=== PATIENT | male | born 1940 | race African-American/Black ===

== ENCOUNTER 2016-02-26 11:14 | Emergency (ER) | payer MEDICARE ==
[2016-02-26 11:42] VITALS: BP 129/80
[2016-02-26] MEDS ORDERED: ALBUTEROL SULFATE/IPRATROPIUM 3 ML NEBU IH ONE ×2 (12:03→12:12)
--- NOTE | 2016-02-26 12:09 | ERNOTE ---
Date of Service: 02/26/16 Time Seen by Provider: 02/26/16 11:51 Stated Complaint: COLD Presenting Symptoms:: cough, sore throat, runny nose, fever, other - sinus and chest congestion Source: patient Exam Limitations: no limitations Immunizations: IMMUNIZATION HX Immunizations Up to Date Yes History of Influenza Vaccine Yes Hx Pneumococcal Vaccination Yes Allergies/Adverse Reactions: Allergies lisinopril Allergy (Mild, Verified 02/26/16 11:46) Hives tamsulosin HCl [From Flomax] Adverse Reaction (Mild, Verified 02/26/16 11:46) Itching Home Medications: HOME MEDICATIONS Albuterol Sulfate 2.5 mg IH QID 12/24/11 [Last Taken 02/04/16] Blood-Glucose Meter [Freestyle Lite Meter] 1 each MC QID 12/24/11 [Last Taken Unknown] Nitroglycerin [Nitrostat 0.4 MG] 1 tab SL Q5MX3 PRN 12/24/11 [Last Taken Unknown ] amLODIPine BESYLATE [Norvasc (Amlodipine)] 5 mg PO DAILY 12/24/11 [Last Taken 08:30] metFORMIN HCL [Glucophage] 1,000 mg PO BIDWM 12/24/11 [Last Taken 02/05/16] Aspirin [Aspirin Enteric Coated] 325 mg PO DAILY 01/29/16 [Last Taken 02/05/16] Clopidogrel Bisulfate [Plavix] 75 mg PO DAILY 01/29/16 [Last Taken 01/29/16] Gabapentin [Neurontin] 400 mg PO TID 01/29/16 [Last Taken 02/05/16] Insulin Aspart [Novolog] 18 units SC AC 01/29/16 [Last Taken 02/05/16] Insulin Glargine,Hum.rec.anlog [Lantus] 48 units SC HS 01/29/16 [Last Taken ] Metoprolol Tartrate [Lopressor] 25 mg PO BID 01/29/16 [Last Taken 02/06/16 08:30 ] Albuterol Sulfate [Proair Hfa] 2 puff IH QID PRN 02/26/16 [Last Taken Unknown] Doxycycline Monohydrate 100 mg PO BID #20 tablet 02/26/16 [Last Taken Unknown] Nabumetone 750 mg PO BID 02/26/16 [Last Taken Unknown] predniSONE [Prednisone] 3 tab PO DAILY #9 tab 02/26/16 [Last Taken Unknown] - History of Present Ilness Narrative: Pt. comes in with c/o cough, SOB, wheezing, sore throat, ear pain, sinus congestion, rhinorrhea, and chills/fever. Pt. denies any prehospital treatment since symptom onset three weeks ago. Pt. states that symptoms worsen at night and he has been taking his rescue inhaler more recently. Review of Systems - Review of Systems Constitutional: Present: fever, chills, weakness, fatigue, malaise. Absent: recent illness EYE: Present: no symptoms reported ENT: Present: ear pain - R, nose congestion, nasal drainage, sore throat Respiratory: Present: shortness of breath, cough, orthopnea, wheezing Cardiology: Present: no symptoms reported. Absent: chest pain, palpitations, edema Gastrointestinal/Abdominal: Present: no symptoms reported. Absent: nausea, vomiting, diarrhea Musculoskeletal: Present: no symptoms reported. Absent: back pain, neck pain, joint pain Skin: Present: no symptoms reported. Absent: rash, change in color Neurological: Present: no symptoms reported. Absent: headache, dizziness/light- headedness, numbness, tingling Endocrine: Present: no symptoms reported All Other Systems: All systems neg except as marked - Patient's Past Medical History Patient History - Medical: No pertinent hx - Social History Smoking Status: Former smoker Physical Exam - Physical Exam General Appearance: Present: wd/wn, alert, no apparent distress Eye Exam: Normal inspection: bilateral, PERRL: bilateral, EOMI: bilateral Ears, Nose, Throat: Present: nasal congestion, sinus pain/drainage - maxillary, pharyngeal erythema. Absent: abnormal TM (R), abnormal TM (L) Neck: Present: normal inspection, nontender. Absent: lymphadenopathy (R), lymphadenopathy (L) Respiratory: Present: no respiratory distress, no accessory muscle use, chest nontender, decreased breath sounds - R Cardiovascular/Chest: Present: regular rate, rhythm, no murmur, normal peripheral pulses Gastrointestinal/Abdominal: Present: normal bowel sounds, nontender, nondistended, soft, no organomegaly Back Exam: Present: normal inspection, normal range of motion, no CVA tenderness , no vertebral tenderness Extremity Exam: Present: normal inspection, non-tender, no edema, normal range of motion Neurological Exam: Present: alert, oriented, normal mood/affect, no motor/ sensory deficits, elevator attendant II-XII nml as tested, normal cerebellar test Skin Exam: Present: warm/dry, pallor. Absent: skin rash ED Progress - Results and Orders Patient's Lab Results:: I have reviewed the patient's lab results. - Vital Signs Patient's Vital Signs:: I have reviewed the patient's vital signs. Vital Signs: Vital Signs 02/26/16 11:35 Temperature 35.8 C L Pulse Rate 93 Respiratory 18 Rate Blood Pressure 129/80 O2 Sat by Pulse 98 Oximetry - X-Ray X-Ray #1 X-Ray: chest Interpretation: Reviewed by me X-ray Comments: bronchial cuffing - Progress/Reassessment Chief Complaint: Upper Respiratory Symptoms Departure - Departure Clinical Impression: COPD exacerbation Disposition: Home self-care Condition: Good Instructions: Chronic Obstructive Pulmonary Disease, [id number] Additional Instructions: Please follow up with dr martinez in 2-3 days. Continue taking Albuterol inhaler every four hours until feeling better. Referrals: Steven Martinez MD [Primary Care Provider] - Prescriptions: Doxycycline Monohydrate 100 mg PO BID #20 tablet predniSONE [Prednisone] 3 tab PO DAILY #9 tab
[2016-02-26 12:15] LABS: Hematocrit 41.8 % (42.0-52.0); Hemoglobin 14.6 gm/dL (13.5-18.0); Mean Cell Volume 83.1 fl (78-100); Mean Corpuscular Hgb Conc 34.9 g/dl (32-36); Mean Platelet Volume 11.5 fl (6.0-9.5); Neutrophil # 7.9 K/mm3 (1.3-6.0); Neutrophil % 74.4 % (42-75.0); Platelet Count 227 K/mm3 (150-450); Red Blood Count 5.03 M/mm3 (4.7-6.0); Red Cell Distribution Width 12.7 % (11.5-14.0); White Blood Count 10.6 K/mm3 (4.0-10.5)
[2016-02-26 12:28] LABS: Albumin * 3.3 gm/dl (3.4-5.0); Anion Gap 14.2 mmol/L (6.8-13.8); BUN/Creatinine Ratio 11.6 (9.0-21.6); Bilirubin, Total 0.6 mg/dL (0.0-1.1); Ca. Corrected For Albumin 9.2 mg/dL (8.4-10.2); Carbon Dioxide 25.6 mmol/L (24-32.6); Potassium 3.8 mmol/L (3.4-4.6); Total Protein 7.3 gm/dL (6.2-8.2)
== END 2016-02-26 13:26 | disposition home or self-care (01) ==
LOC: ER 11:14
DX: J44.1 Chronic obstructive pulmonary disease with (acute) exacerbation (principal); Z87.891 Personal history of nicotine dependence

== ENCOUNTER 2016-07-29 09:08 | Emergency (ER) | payer MEDICARE ==
--- NOTE | 2016-07-29 09:20 | ERNOTE ---
Medical Problem HPI - General Time Seen by Provider: 07/29/16 09:15 Source: patient Exam Limitations: no limitations - Immun/Allergies/Home Medications Immunizations: IMMUNIZATION HX Immunizations Up to Date Yes History of Influenza Vaccine Yes Hx Pneumococcal Vaccination Yes Allergies/Adverse Reactions: Allergies lisinopril Allergy (Mild, Verified 07/29/16 09:21) Hives tamsulosin HCl [From Flomax] Adverse Reaction (Mild, Verified 07/29/16 09:21) Itching Home Medications: HOME MEDICATIONS Albuterol Sulfate 2.5 mg IH QID 12/24/11 [Last Taken 02/04/16] Blood-Glucose Meter [Freestyle Lite Meter] 1 each MC QID 12/24/11 [Last Taken Unknown] Nitroglycerin [Nitrostat 0.4 MG] 1 tab SL Q5MX3 PRN 12/24/11 [Last Taken Unknown ] amLODIPine BESYLATE [Norvasc (Amlodipine)] 5 mg PO DAILY 12/24/11 [Last Taken 08:30] metFORMIN HCL [Glucophage] 1,000 mg PO BIDWM 12/24/11 [Last Taken 02/05/16] Aspirin [Aspirin Enteric Coated] 325 mg PO DAILY 01/29/16 [Last Taken 02/05/16] Clopidogrel Bisulfate [Plavix] 75 mg PO DAILY 01/29/16 [Last Taken 01/29/16] Gabapentin [Neurontin] 400 mg PO TID 01/29/16 [Last Taken 02/05/16] Insulin Aspart [Novolog] 18 units SC AC 01/29/16 [Last Taken 02/05/16] Insulin Glargine,Hum.rec.anlog [Lantus] 48 units SC HS 01/29/16 [Last Taken ] Metoprolol Tartrate [Lopressor] 25 mg PO BID 01/29/16 [Last Taken 02/06/16 08:30 ] Albuterol Sulfate [Proair Hfa] 2 puff IH QID PRN 02/26/16 [Last Taken Unknown] - History of Present History Narrative: Patient went to see his PCP for a routine appointment. He took his insulin at home but did not eat any breakfast. At the office patient was diaphoretic and his glucose measured low. He was given a doughnut and two cartons of orange juice. On arrival in the ER glucose is 75, patient is feeling back to normal and denies any concerns or symptoms Timing: resolved prior to arrival Review of Systems - Review of Systems Constitutional: Present: See HPI, diaphoresis. Absent: recent illness, fever EYE: Absent: vision changes ENT: Absent: nasal drainage Cardiology: Absent: chest pain Gastrointestinal/Abdominal: Absent: nausea, vomiting, abdominal pain Genitourinary: Present: no symptoms reported Musculoskeletal: Present: no symptoms reported Neurological: Absent: headache, weakness, numbness - Patient's Past Medical History Patient History - Medical: No pertinent hx, Diabetes Type 2 Insulin Dependent, Depression, GERD, UTI'S Patient History - Cardiac/Respiratory: Asthma, COPD, Hypertension, Hyperlipidemia, Myocardial Infarction, Pneumonia Patient History - Cancer: No Hx of Cancer Patient History - Surgical Procedures: Cholecystectomy, Colonoscopy, Cardiac stent, Total Knee Replacement, T & A, Hernia Repair Patient History - Other: None - Social History Living Situations: home Abuse History: No History of abuse Alcohol Use: none Drug Use: none - Immunizations Immunizations Up to Date: Yes Hx Pneumococcal Vaccination: Yes History of Influenza Vaccine: Yes Physical Exam - Physical Exam General Appearance: Present: wd/wn, alert, no apparent distress Respiratory: Present: no respiratory distress, normal breath sounds, no accessory muscle use, chest nontender, lungs clear Cardiovascular/Chest: Present: regular rate, rhythm, no murmur Gastrointestinal/Abdominal: Present: nontender, nondistended, soft Neurological Exam: Present: alert, oriented, normal mood/affect Skin Exam: Present: normal color, warm/dry ED Progress - Results and Orders Patient's Lab Results:: I have reviewed the patient's lab results. - reviewed labs from yesterday - Vital Signs Patient's Vital Signs:: I have reviewed the patient's vital signs. Vital Signs: Vital Signs 07/29/16 09:12 Temperature 36.4 C L Pulse Rate 93 Respiratory 12 Rate Blood Pressure 138/111 O2 Sat by Pulse 98 Oximetry - Progress/Reassessment Progress Note-Subjective: 07/29/16 10:15 glucose stable, no symptoms, ready to be discharged Departure - Departure Clinical Impression: Hypoglycemia Disposition: Home self-care Condition: Good Instructions: Hypoglycemia, [id number] Referrals: Steven Martinez MD [Primary Care Provider] -
--- OUTSIDE RECORDS SUMMARY | 2016-07-29 09:22 | XMS REPORT | Continuity of Care Document ---
:1940 Author Organization [facility] ([facility]) Address [address] [place] [address] Phone [phone] Care Team Providers Name Role Phone Steven Martinez Primary Care Provider [phone] Source Comments This disclosure is being made pursuant to the Care Everywhere program, applicable federal and state laws, and may not contain all informaitonavailable regarding this patient.[facility] ([facility]) Active Allergies and Adverse Reactions Allergen Noted Date Severity Reactions Comments Lisinopril Urticaria (Hives),Pruritus Tamsulosin 06/26/2015 Unknown Pt reports itching Current Medications Prescription Sig. Disp. Refills Start Date End Date Status albuterol 90 inhale 1 puff by 06/24/2012 Active mcg/Actuation inhaler inhalation route every 4 - 6 hours as needed aspirin 325 mg tablet take 1 tablet (325MG) 07/27/2012 Active by oral route every day gabapentin 300 mg take 1 capsule (300MG) 06/24/2012 Active capsule by ORAL route 3 times every day losartan 50 mg tablet take 1 tablet (50MG) 07/27/2012 Active by oral route every day metFORMIN 1,000 mg take 1 tablet (1000MG) 06/24/2012 Active tablet by oral route 2 times every day with morning and evening meals metoPROLol tartrate 25 take 1 tablet (25MG) 07/27/2012 Active mg tablet by oral route 2 times every day nabumetone 750 mg take 1 tablet (750MG) 06/24/2012 Active tablet by oral route 2 times every day simvastatin 40 mg take 1 tablet (40MG) 06/24/2012 Active tablet by ORAL route every day in the evening amLODIPine 5 mg tablet 04/27/2015 Active clopidogrel 75 mg 04/27/2015 Active tablet insulin aspart Inject 10 Units Active (NovoLOG FLEXPEN) 100 subcutaneously 3 times unit/mL (3 mL) daily before meals. injection pen insulin glargine Inject 45 Units Active (LanTUS) 100 unit/mL subcutaneously at injection vial bedtime. nitroglycerin 0.[address] 0.4 mg under the Active SL tablet tongue every 5 minutes as needed. Maximum of 3 tablets in 15 minutes. Active Problems Problem Noted Date Brachial neuritis or radiculitis NOS 06/05/2008 Unspecified hereditary and idiopathic peripheral neuropathy 05/02/2004 Type 2 diabetes mellitus without complication 01/26/2003 Cervicalgia 11/28/2002 Lumbago 11/28/2002 Essential hypertension 07/14/2002 Special screening for malignant neoplasm of prostate 12/02/2001 Pure hypercholesterolemia 12/02/2001 Coronary artery disease Overview: Formatting of this note may be different from the original. 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 LV gm EF 60% with apical hypokinesis 2. Right dominant circulation. LMCA normal. LAD 95% mid vessel stenosis. LCX non dominant normal. RCA tortuous vessel with minor irregularity. 3. Successful deployment of 2.75 x 20mm PROMUS stent to mid LAD with 0% residual stenosis. ) - 06/30/2012 STRESS MPI: EF .54. No ischemia 06/07/2014 VASCULAR GOPAL Normal. 04/06/2015 Myocardial infarction, old Resolved Problems Problem Noted Date Resolved Date Other and unspecified hyperlipidemia 01/26/2003 06/26/2015 Coronary atherosclerosis of unspecified type of vessel, 01/26/2003 06/24/2015 yuhaaviatam or graft Other symptoms involving urinary system 11/17/2002 06/26/2015 Observation for suspected malignant neoplasm 12/02/2001 06/24/2015 Most Recent Encounters Date Type Specialty Providers Description 07/08/2016 Office Visit [facility] Barbie Cartagena MD Dx: Coronary artery disease involving yuhaaviatam coronary artery of yuhaaviatam heart without angina pectoris (Primary Dx) Immunizations Name Dates Previously Given Next Due Pneumococcal Polysaccharide, PPSV23 (Pneumovax 23) 12/02/2001 Social History Tobacco Use Types Packs/Day Years Used Date Former Smoker Alcohol Use Drinks/Week oz/Week Comments No Last Filed Vital Signs Vital Sign Reading Time Taken Blood Pressure 140/72 07/08/2016 10:30 AM CDT Pulse 86 07/08/2016 10:30 AM CDT Temperature 36 C (96.8 F) 12/18/2003 9:14 AM CDT Respiratory Rate 16 11/16/2003 10:59 AM CDT Height 1.829 m (6' 0.01") 07/08/2016 10:30 AM CDT Weight 64.592 kg (142 lb 6.4 oz) 07/08/2016 10:30 AM CDT Body Mass Index 19.31 07/08/2016 10:30 AM CDT Oxygen Saturation - - Plan of Care Health Maintenance Due Date Last Done Comments Hepatitis B Vaccine (1 of 3 - 1940 Primary Series) Tdap Vaccine 12/14/1950 Td Vaccine 12/14/1957 Colonoscopy 12/14/1989 Zoster Vaccine 1999 DIABETIC: Hemoglobin A1C 11/02/2004 05/02/2004, 11/16/2003, 01/26/2003 Pneumococcal Vaccine (1 of 2 12/14/2004 12/02/2001 - PCV13) DIABETIC: Cholesterol 05/02/2005 05/02/2004, Additional history exists 11/16/2003, 01/26/2003 Diabetic: Hdl 05/02/2005 05/02/2004, Additional history exists 11/16/2003, 01/26/2003 Diabetic: Ldl 05/02/2005 05/02/2004, Additional history exists 11/16/2003, 11/16/2003 DIABETIC: Microalbumin 05/02/2005 05/02/2004 DIABETIC: Triglycerides 05/02/2005 05/02/2004, Additional history exists 11/16/2003, 01/26/2003 DIABETIC: Foot Exam 08/06/2010 DIABETIC: Retinal Eye Exam 08/06/2010 Influenza Vaccine: Seasonal 09/23/2016 (Season Ended) Results from Last 3 Months Not on file
[2016-07-29 10:00] VITALS: BP 153/90
== END 2016-07-29 10:27 | disposition home or self-care (01) ==
LOC: ER 09:08
DX: E16.2 Hypoglycemia, unspecified (principal); E11.9 Type 2 diabetes mellitus without complications; Z79.4 Long term (current) use of insulin; I10 Essential (primary) hypertension; J45.909 Unspecified asthma, uncomplicated; J44.9 Chronic obstructive pulmonary disease, unspecified; Z87.440 Personal history of urinary (tract) infections; Z95.5 Presence of coronary angioplasty implant and graft

== ENCOUNTER 2016-10-13 07:25 | Day surgery (SDC) | payer MEDICARE ==
[~2016-10-13 07:25] MED LIST: ACETAMINOPHEN 325 MG TABLET PO PRN; ACETYLCHOLINE CHLORIDE 20 DROP KIT IO PRN; BUPIVACAINE HCL/PF 30 ML VIAL IJ PRN; CYCLOPENTOLATE HCL 20 DROP BTL RIGHTEYE PRN; DEXTROSE 5%-0.5 NORMAL SALINE 1,000 ML IV PRN; EPINEPHrine 1 MG/ML AMPUL IO PRN; HYALURONATE SODIUM 0.4 ML DISP.SYRIN IO PRN; HYALURONATE SODIUM 0.85 ML DISP.SYRIN IO PRN; LIDOCAINE HCL/PF 200 MG/5 ML AMPUL TP PRN; LIDOCAINE HCL/PF 5 ML VIAL IO PRN; NORMAL SALINE 3 ML BOX IV PRN; TETRACAINE HCL 150 DROP BTL OP PRN
[2016-10-13] MEDS: TROPICAMIDE 150 DROP BTL RIGHTEYE PRN ×3 (07:50→08:15)
[2016-10-13] MEDS: PHENYLEPHRINE HCL 50 DROP BTL RIGHTEYE PRN ×3 (07:50→08:15)
[2016-10-13] MEDS ORDERED: RINGER'S SOLUTION,LACTATED 1,000 ML IV ONE (08:13)
[2016-10-13 10:13] VITALS: BP 163/74
== END 2016-10-13 07:26 | disposition home or self-care (01) ==
LOC: AMB 07:25
PROVIDERS: ATTEND Ophthalmology
PROC: 08RJ3JZ Replacement of Right Lens with Synthetic Substitute, Percutaneous Approach (ICD-10-PCS; principal; 2016-10-13 08:45)
DX: H26.9 Unspecified cataract (principal); E11.9 Type 2 diabetes mellitus without complications; I10 Essential (primary) hypertension; J44.9 Chronic obstructive pulmonary disease, unspecified; I25.10 Atherosclerotic heart disease of native coronary artery without angina pectoris; K21.9 Gastro-esophageal reflux disease without esophagitis; E78.5 Hyperlipidemia, unspecified; Z87.891 Personal history of nicotine dependence; Z68.21 Body mass index [BMI] 21.0-21.9, adult

== ENCOUNTER 2016-10-29 15:10 | Emergency (ER) | payer MEDICARE ==
[2016-10-29] MEDS ORDERED: LABETALOL HCL 5 MG/ML VIAL IV ONE ×3 (15:24→16:24)
[2016-10-29] MEDS: NITROGLYCERIN 0.4 MG/TAB BTL SL ONE ×2 (15:25→15:30)
[2016-10-29] MEDS ORDERED: NITROGLYCERIN 0.4 MG/TAB BTL SL ONE (15:31)
[2016-10-29] MEDS ORDERED: NITROGLYCERIN IN 5 % DEXTROSE 50 MG/250 ML INFUS..BTL IV PRN (15:34)
[2016-10-29] MEDS ORDERED: ALBUTEROL SULFATE/IPRATROPIUM 3 ML NEBU IH ONE ×2 (15:37→15:38)
--- NOTE | 2016-10-29 15:38 | ERNOTE ---
Medical Problem HPI - General Chief Complaint: Nausea/Vomiting Time Seen by Provider: 10/29/16 15:20 Source: patient, family Exam Limitations: no limitations - Immun/Allergies/Home Medications Immunizations: IMMUNIZATION HX Immunizations Up to Date Yes History of Influenza Vaccine No Hx Pneumococcal Vaccination Yes Allergies/Adverse Reactions: Allergies lisinopril Allergy (Mild, Verified 10/29/16 15:18) Hives tamsulosin HCl [From Flomax] Allergy (Mild, Verified 10/29/16 15:18) Itching Home Medications: HOME MEDICATIONS Albuterol Sulfate 2.5 mg IH QID 12/24/11 [Last Taken 02/04/16] Blood-Glucose Meter [Freestyle Lite Meter] 1 each MC QID 12/24/11 [Last Taken Unknown] Nitroglycerin [Nitrostat 0.4 MG] 1 tab SL Q5MX3 PRN 12/24/11 [Last Taken Unknown ] metFORMIN HCL [Glucophage] 1,000 mg PO BIDWM 12/24/11 [Last Taken 02/05/16] Aspirin [Aspirin Enteric Coated] 325 mg PO DAILY 01/29/16 [Last Taken 02/05/16] Clopidogrel Bisulfate [Plavix] 75 mg PO DAILY 01/29/16 [Last Taken 01/29/16] Gabapentin [Neurontin] 400 mg PO TID 01/29/16 [Last Taken 02/05/16] Insulin Aspart [Novolog] 18 units SC AC 01/29/16 [Last Taken 02/05/16] Insulin Glargine,Hum.rec.anlog [Lantus] 48 units SC HS 01/29/16 [Last Taken ] Metoprolol Tartrate [Lopressor] 25 mg PO BID 01/29/16 [Last Taken 02/06/16 08:30 ] Albuterol Sulfate [Proair Hfa] 2 puff IH QID PRN 02/26/16 [Last Taken Unknown] Atorvastatin Calcium [Lipitor] 20 mg PO DAILY 10/06/16 [Last Taken Unknown] amLODIPine BESYLATE [Norvasc] 10 mg PO DAILY 10/06/16 [Last Taken Unknown] - History of Present History Narrative: Patient presents to the ED in profound respiratory distress, diaphoretic with nausea and inability to catch his breath. Onset of symptoms was earlier today approximate 4-5 hours prior to arrival. Both patient and feel that the symptoms are severe and he is not able to get any relief at home. Timing: constant Severity: severe Review of Systems - Review of Systems Constitutional: Present: See HPI EYE: Present: no symptoms reported ENT: Present: no symptoms reported Respiratory: Present: See HPI, shortness of breath Cardiology: Present: no symptoms reported Gastrointestinal/Abdominal: Present: no symptoms reported Genitourinary: Present: no symptoms reported Musculoskeletal: Present: no symptoms reported Skin: Present: no symptoms reported Neurological: Present: no symptoms reported Endocrine: Present: no symptoms reported Hematologic/Lymphatic: Present: no symptoms reported Psych: Present: no symptoms reported - Patient's Past Medical History Patient History - Medical: Diabetes Type 2 Insulin Dependent, Depression, GERD, UTI'S Patient History - Cardiac/Respiratory: Asthma, COPD, Hypertension, Hyperlipidemia, Myocardial Infarction, Pneumonia Patient History - Cancer: No Hx of Cancer Patient History - Surgical Procedures: Cholecystectomy, Colonoscopy, Cardiac stent, Total Knee Replacement, T & A, Other, Hernia Repair Patient History - Other: None - Family History Father Family History - Medical: , No pertinent hx Family History - Cardiac/Respiratory: No pertinent hx Family History - Cancer: Lung Mother Family History - Medical: , Diabetes Type 2 Family History - Cardiac/Respiratory: Hypertension Family History - Cancer: No pertinent family hx Brother Family History - Medical: , Diabetes Type 2, Other Family History - Cardiac/Respiratory: Myocardial Infarction Family History - Cancer: Brain, Stomach Sister Family History - Medical: No pertinent hx, Other Family History - Cardiac/Respiratory: Myocardial Infarction Family History - Cancer: Other - Social History Living Situations: home Abuse History: No History of abuse Psych History: No pertinent hx Alcohol Use: none Drug Use: none - Immunizations Immunizations Up to Date: Yes Hx Pneumococcal Vaccination: Yes History of Influenza Vaccine: No Physical Exam - Physical Exam General Appearance: Present: wd/wn, alert, severe distress Eye Exam: Normal inspection: bilateral, PERRL: bilateral Ears, Nose, Throat: Present: normal ENT inspection, H, normal pharynx Neck: Present: normal inspection, nontender Respiratory: Present: chest nontender, respiratory distress, accessory muscle use, decreased breath sounds Cardiovascular/Chest: Present: regular rate, rhythm, no murmur, normal peripheral pulses Gastrointestinal/Abdominal: Present: normal bowel sounds, nontender, nondistended, soft, no organomegaly Rectal Exam: Present: deferred Back Exam: Present: normal inspection, normal range of motion Extremity Exam: Present: normal inspection, non-tender, no edema, normal range of motion Neurological Exam: Present: alert, oriented, normal mood/affect Skin Exam: Present: normal color, warm/dry Lymphatic Exam: Present: no adenopathy ED Progress - Results and Orders Patient's Lab Results:: I have reviewed the patient's lab results. - Vital Signs Patient's Vital Signs:: I have reviewed the patient's vital signs. Vital Signs: Vital Signs 10/29/16 10/29/16 10/29/16 15:15 15:26 15:29 Pulse Rate 120 H 128 H 110 H Respiratory 16 28 H Rate Blood Pressure 220/144 260/148 260/148 O2 Sat by Pulse 93 90 Oximetry - EKG EKG: other - sinus tachycardia EKG read: Interp. by me - X-Ray X-Ray #1 X-Ray: chest Interpretation: Reviewed by me - Progress/Reassessment Chief Complaint: Nausea/Vomiting Procedures Tube Size (cm): 6.0 Medications: Succinylcholine Breath Sounds after Intubation: equal Intubation Complications: no complications Post Intubation Xray: Yes Complications: Pt michoacano procedure well Plan - Plan Plan: Patient was in acute respiratory failure with malignant hypertension. Numerous interventions were undertaken to help his blood pressure down including subarachnoid nitroglycerin 2, labetalol 20 mg 2 and a nitroglycerin drip. Despite getting the blood pressure down to a lower level patient was still in marked respiratory failure and he was trending worse. Because of this patient was intubated and placed on a propofol drip, nitroglycerin drip and labetalol drip. Because the patient had a slightly elevated lactate and elevated white count patient was given 1 g Rocephin prophylactically. However I believe that the patient's lactate was elevated because of profound extended hypoxia. We were able to make significant improvement signs blood pressure with a variety drips, we were able to control his oxygen level by placing the patient on a ventilator. I believe this patient is going to need a variety of implants that were not compelled to provide for him here in the guise of cardiology and pulmonology. Patient be transferred to [facility] in [place] and is transferred there in critical condition. Departure - Departure Clinical Impression: Malignant hypertension Respiratory failure Qualifiers: Chronicity: acute Respiratory failure complication: hypoxia Qualified Code(s): J96.01 - Acute respiratory failure with hypoxia Disposition: [facility] Condition: Critical Referrals: Steven Martinez MD [Primary Care Provider] - - Critical Care Total Time (mins): 100 Critical Care: As mentioned previously this patient required critical care for the entire time he was in the emergency department. Multiple interventions were undertaken included endotracheal intubation, multiple drips to control blood pressure and prophylactic antibiotics.
[2016-10-29 15:43] LABS: Hematocrit 43.3 % (42.0-52.0); Hemoglobin 15.3 gm/dL (13.5-18.0); Mean Cell Volume 83.9 fl (78-100); Mean Corpuscular Hemoglobin 29.7 pg (27-31); Mean Corpuscular Hgb Conc 35.3 g/dl (32-36); Mean Platelet Volume 11.8 fl (6.0-9.5); Neutrophil # 13.8 K/mm3 (1.3-6.0); Neutrophil % 85.5 % (42-75.0); Platelet Count 194 K/mm3 (150-450); Red Blood Count 5.16 M/mm3 (4.7-6.0); White Blood Count 16.2 K/mm3 (4.0-10.5)
[2016-10-29] MEDS ORDERED: PROPOFOL 1,000 MG/100 ML PIGGYBACK IV PRN (15:53)
[2016-10-29 16:03] LABS: Troponin I 0.023 ng/ml (0.00-0.10)
[2016-10-29 16:07] LABS: BUN/Creatinine Ratio 12.2 (9.0-21.6)
[2016-10-29 16:08] LABS: Albumin * 4.2 gm/dl (3.4-5.0); Anion Gap 18.3 mmol/L (6.8-13.8); Bilirubin, Total 1.5 mg/dL (0.0-1.1); CKMB 7.1 ng/mL (0.0-9.0); Ca. Corrected For Albumin 8.6 mg/dL (8.4-10.2); Calcium * 9.1 mg/dL (7.9-10.9); Carbon Dioxide 24.9 mmol/L (24-32.6); Potassium 4.2 mmol/L (3.4-4.6); Total Protein 8.3 gm/dL (6.2-8.2)
[2016-10-29] MEDS ORDERED: MIDAZOLAM HCL/PF 5 MG/ML VIAL IM ONE (16:46)
[2016-10-29] MEDS ORDERED: LABETALOL HCL 100 MG in NORMAL SALINE 80 ML IV PRN (16:46)
[2016-10-29 17:06] VITALS: BP 156/99
[2016-10-29] MEDS ORDERED: MIDAZOLAM HCL/PF 5 MG/ML VIAL ONE (17:08)
[2016-10-29] MEDS ORDERED: MIDAZOLAM HCL/PF 5 MG/ML VIAL IV ONE (17:13)
== END 2016-10-29 17:25 | disposition short-term general hospital (02) ==
LOC: ER 15:10
DX: I10 Essential (primary) hypertension (principal); J96.01 Acute respiratory failure with hypoxia

== ENCOUNTER 2016-11-18 08:35 | Emergency (ER) | payer MEDICARE ==
[2016-11-18] MEDS ORDERED: DEXTROSE 50%-WATER 50 ML SYRG ONE (08:41)
[2016-11-18] MEDS ORDERED: DEXTROSE 4 GM/TAB BTL ONE (08:41)
[2016-11-18] MEDS ORDERED: DEXTROSE 4 GM/TAB BTL PO ONE (08:46)
[2016-11-18] MEDS ORDERED: DEXTROSE 50%-WATER 50 ML SYRG IV ONE (08:47)
[2016-11-18 10:03] VITALS: BP 160/87
--- NOTE | 2016-11-18 10:29 | ERNOTE ---
Medical Problem HPI - Narrative Date of Service: 11/18/16 - General Chief Complaint: Diabetes Related Problem Time Seen by Provider: 11/18/16 08:55 Source: patient Exam Limitations: no limitations - Immun/Allergies/Home Medications Immunizations: IMMUNIZATION HX Immunizations Up to Date Yes History of Influenza Vaccine No Hx Pneumococcal Vaccination Yes Allergies/Adverse Reactions: Allergies lisinopril Allergy (Mild, Verified 11/18/16 10:10) Hives tamsulosin HCl [From Flomax] Allergy (Mild, Verified 11/18/16 10:10) Itching Home Medications: HOME MEDICATIONS Albuterol Sulfate 2.5 mg IH QID 12/24/11 [Last Taken 02/04/16] Blood-Glucose Meter [Freestyle Lite Meter] 1 each MC QID 12/24/11 [Last Taken Unknown] Nitroglycerin [Nitrostat 0.4 MG] 1 tab SL Q5MX3 PRN 12/24/11 [Last Taken Unknown ] metFORMIN HCL [Glucophage] 1,000 mg PO BIDWM 12/24/11 [Last Taken 11/18/16] Aspirin [Aspirin Enteric Coated] 325 mg PO DAILY 01/29/16 [Last Taken 11/18/16] Clopidogrel Bisulfate [Plavix] 75 mg PO DAILY 01/29/16 [Last Taken 11/18/16] Gabapentin [Neurontin] 400 mg PO TID 01/29/16 [Last Taken 02/05/16] Insulin Aspart [Novolog] 18 units SC AC 01/29/16 [Last Taken 11/18/16] Insulin Glargine,Hum.rec.anlog [Lantus] 48 units SC HS 01/29/16 [Last Taken ] Metoprolol Tartrate [Lopressor] 25 mg PO BID 01/29/16 [Last Taken 11/18/16] Albuterol Sulfate [Proair Hfa] 2 puff IH QID PRN 02/26/16 [Last Taken Unknown] Atorvastatin Calcium [Lipitor] 20 mg PO DAILY 10/06/16 [Last Taken 11/17/16] Amlodipine Besylate 5 mg PO DAILY 11/18/16 [Last Taken 11/18/16] - History of Present History Narrative: Patient presents to the ED for low blood sugar. He relates he took his medications but did not eat breakfast because he had an appointment with Dr Martinez. When he arrived at Dr Martinez office he did not feel well and had a low BS in the 40s. he was subsequently sent here. An amp of D50 given in triage and now feeling back to normal. There is a reasons for his low BS as he did not eat breakfast. No vomiting. No other Sx. he relates that otherwise he has been feeling well. No urinary symptoms. No CP or SOB. Timing: gone now Severity: mild Modifying Factors - (Improves): Present: other - glucose Modifying Factors - (Worsens): Present: other - nothing Review of Systems - Review of Systems Constitutional: Absent: fever ENT: Absent: sore throat Respiratory: Absent: shortness of breath Cardiology: Absent: chest pain Gastrointestinal/Abdominal: Absent: abdominal pain Genitourinary: Absent: dysuria Skin: Absent: rash Neurological: Absent: weakness - Patient's Past Medical History Patient History - Medical: Diabetes Type 2 Insulin Dependent, Depression, GERD, UTI'S Patient History - Cardiac/Respiratory: Asthma, COPD, Hypertension, Hyperlipidemia, Myocardial Infarction, Pneumonia Patient History - Cancer: No Hx of Cancer Patient History - Surgical Procedures: Cholecystectomy, Colonoscopy, Cardiac stent, Total Knee Replacement, T & A, Other, Hernia Repair Patient History - Other: None - Family History Father Family History - Medical: , No pertinent hx Family History - Cardiac/Respiratory: No pertinent hx Family History - Cancer: Lung Mother Family History - Medical: , Diabetes Type 2 Family History - Cardiac/Respiratory: Hypertension Family History - Cancer: No pertinent family hx Brother Family History - Medical: , Diabetes Type 2, Other Family History - Cardiac/Respiratory: Myocardial Infarction Family History - Cancer: Brain, Stomach Sister Family History - Medical: No pertinent hx, Other Family History - Cardiac/Respiratory: Myocardial Infarction Family History - Cancer: Other - Social History Living Situations: home Abuse History: No History of abuse Psych History: No pertinent hx Smoking Status: Former smoker Have you smoked in the past 12 months: No Do you dip or chew tobacco: No Alcohol Use: none Drug Use: none - Immunizations Immunizations Up to Date: Yes Hx Pneumococcal Vaccination: Yes History of Influenza Vaccine: No Physical Exam - Physical Exam General Appearance: Present: alert, no apparent distress Head Exam: Present: normal inspection, no evidence of injury Eye Exam: Normal inspection: bilateral, PERRL: bilateral Ears, Nose, Throat: Present: normal ENT inspection Neck: Present: normal inspection Respiratory: Present: no respiratory distress, no accessory muscle use, lungs clear Cardiovascular/Chest: Present: regular rate, rhythm, normal peripheral pulses Gastrointestinal/Abdominal: Present: normal bowel sounds, nontender, soft Back Exam: Absent: CVA tenderness (R), CVA tenderness (L) Extremity Exam: Present: other - no deformity Neurological Exam: Present: alert, normal mood/affect, no motor/sensory deficits Skin Exam: Present: normal color, warm/dry ED Progress - Results and Orders Patient's Lab Results:: I have reviewed the patient's lab results. - Vital Signs Patient's Vital Signs:: I have reviewed the patient's vital signs. Vital Signs: Vital Signs 11/18/16 11/18/16 11/18/16 08:50 08:51 09:07 Temperature 36.3 C L Pulse Rate 84 85 84 Respiratory 18 14 Rate Blood Pressure 143/79 169/79 O2 Sat by Pulse 100 99 Oximetry 11/18/16 11/18/16 09:30 10:02 Temperature Pulse Rate 88 87 Respiratory 14 14 Rate Blood Pressure 160/87 O2 Sat by Pulse 100 100 Oximetry - Progress/Reassessment Chief Complaint: Diabetes Related Problem Progress Note-Subjective: 11/18/16 10:26 Patient had IV dextrose and ate a meal. he was wishing to go home. BS improved. He has a reasons to be low this am as he did not eat breakfast. i discussed warning signs and reasons to return as well as the need for close f/u. Departure Clinical Impression: Low blood sugar - Departure Disposition: Home self-care Condition: Stable Instructions: Hypoglycemia, [id number] Additional Instructions: Rest. Close blood sugar monitoring. Return for low blood sugar or if your condition worsens or changes in any way. Referrals: Steven Martinez MD [Primary Care Provider] - 11/20/16 1:30 pm
== END 2016-11-18 10:45 | disposition home or self-care (01) ==
LOC: ER 08:35
DX: E16.2 Hypoglycemia, unspecified (principal); Z87.440 Personal history of urinary (tract) infections; Z87.891 Personal history of nicotine dependence; Z79.4 Long term (current) use of insulin; E11.9 Type 2 diabetes mellitus without complications; J44.9 Chronic obstructive pulmonary disease, unspecified; J45.909 Unspecified asthma, uncomplicated; I25.2 Old myocardial infarction; Z95.5 Presence of coronary angioplasty implant and graft; E78.5 Hyperlipidemia, unspecified; I10 Essential (primary) hypertension

== ENCOUNTER 2017-01-05 06:51 | Day surgery (SDC) | payer MEDICARE ==
[~2017-01-05 06:51] MED LIST changes: +CYCLOPENTOLATE HCL 20 DROP BTL LEFTEYE PRN; -CYCLOPENTOLATE HCL 20 DROP BTL RIGHTEYE PRN
[2017-01-05] MEDS: TROPICAMIDE 150 DROP BTL LEFTEYE PRN ×3 (07:09→07:31)
[2017-01-05] MEDS: PHENYLEPHRINE HCL 50 DROP BTL LEFTEYE PRN ×3 (07:09→07:31)
[2017-01-05] MEDS ORDERED: RINGER'S SOLUTION,LACTATED 1,000 ML IV ONE (07:29)
[2017-01-05 09:31] VITALS: BP 138/72
== END 2017-01-05 06:52 | disposition home or self-care (01) ==
LOC: AMB 06:51
PROVIDERS: ATTEND Ophthalmology
PROC: 08RK3JZ Replacement of Left Lens with Synthetic Substitute, Percutaneous Approach (ICD-10-PCS; principal; 2017-01-05 08:00)
DX: H26.8 Other specified cataract (principal); I10 Essential (primary) hypertension; E11.9 Type 2 diabetes mellitus without complications; J44.9 Chronic obstructive pulmonary disease, unspecified; I25.10 Atherosclerotic heart disease of native coronary artery without angina pectoris; E78.5 Hyperlipidemia, unspecified; K21.9 Gastro-esophageal reflux disease without esophagitis; Z87.891 Personal history of nicotine dependence; Z68.21 Body mass index [BMI] 21.0-21.9, adult

== ENCOUNTER 2017-03-12 10:39 | Emergency (ER) | payer MEDICARE ==
[2017-03-12] MEDS ORDERED: DEXTROSE 50%-WATER 50 ML SYRG ONE (10:50)
[2017-03-12] MEDS ORDERED: DEXTROSE 50%-WATER 50 ML SYRG IV ONE (10:52)
--- NOTE | 2017-03-12 10:57 | ERNOTE ---
Medical Problem HPI - General Chief Complaint: General Assessment Time Seen by Provider: 03/12/17 10:45 Source: patient, family Exam Limitations: no limitations - Immun/Allergies/Home Medications Immunizations: IMMUNIZATION HX Immunizations Up to Date Yes History of Influenza Vaccine No Hx Pneumococcal Vaccination Yes Allergies/Adverse Reactions: Allergies lisinopril Allergy (Mild, Verified 03/12/17 10:49) Hives, "FEELS SICK" tamsulosin HCl [From Flomax] Adverse Reaction (Mild, Verified 03/12/17 10:49) "FEELS SICK" Home Medications: HOME MEDICATIONS Albuterol Sulfate 2.5 mg IH QID 12/24/11 [Last Taken 02/04/16] Blood-Glucose Meter [Freestyle Lite Meter] 1 each MC ACHS 12/24/11 [Last Taken Unknown] Nitroglycerin [Nitrostat 0.4 MG] 1 tab SL Q5MX3 PRN 12/24/11 [Last Taken Unknown ] metFORMIN HCL [Glucophage] 1,000 mg PO BIDWM 12/24/11 [Last Taken 11/18/16] Aspirin [Aspirin Enteric Coated] 325 mg PO DAILY 01/29/16 [Last Taken 11/18/16] Clopidogrel Bisulfate [Plavix] 75 mg PO DAILY 01/29/16 [Last Taken 11/18/16] Gabapentin [Neurontin] 400 mg PO TID 01/29/16 [Last Taken 02/05/16] Insulin Aspart [Novolog] 10 units SC AC 01/29/16 [Last Taken 11/18/16] Insulin Glargine,Hum.rec.anlog [Lantus] 43 units SC QAM 01/29/16 [Last Taken ] Metoprolol Tartrate [Lopressor] 25 mg PO BID 01/29/16 [Last Taken 01/05/17 06:00 ] Albuterol Sulfate [Proair Hfa] 2 puff IH QID PRN 02/26/16 [Last Taken Unknown] Atorvastatin Calcium [Lipitor] 20 mg PO DAILY 10/06/16 [Last Taken 11/17/16] Amlodipine Besylate 5 mg PO DAILY 11/18/16 [Last Taken 11/18/16] - History of Present History Narrative: Patient has been having stroke like symptoms over the last 24 hours. He was having some difficulty coordinating his right hand and appear to be a little bit confused to his . Timing: constant Severity: mild Review of Systems - Review of Systems Constitutional: Present: See HPI EYE: Present: no symptoms reported ENT: Present: no symptoms reported Respiratory: Present: no symptoms reported Cardiology: Present: no symptoms reported Gastrointestinal/Abdominal: Present: no symptoms reported Genitourinary: Present: no symptoms reported Musculoskeletal: Present: no symptoms reported Skin: Present: no symptoms reported Neurological: Present: See HPI Endocrine: Present: no symptoms reported Hematologic/Lymphatic: Present: no symptoms reported Psych: Present: no symptoms reported - Patient's Past Medical History Patient History - Medical: Diabetes Type 2 Insulin Dependent, Depression, GERD, UTI'S Patient History - Cardiac/Respiratory: Asthma, COPD, Hypertension, Hyperlipidemia, Myocardial Infarction, Pneumonia Patient History - Cancer: No Hx of Cancer Patient History - Surgical Procedures: Cholecystectomy, Colonoscopy, Cardiac stent, EGD, Total Knee Replacement, T & A, Other, Hernia Repair Patient History - Other: None - Family History Father Family History - Medical: , No pertinent hx Family History - Cardiac/Respiratory: No pertinent hx Family History - Cancer: Lung Mother Family History - Medical: , Diabetes Type 2 Family History - Cardiac/Respiratory: Hypertension Family History - Cancer: No pertinent family hx Brother Family History - Medical: , Diabetes Type 2 Family History - Cardiac/Respiratory: Myocardial Infarction Family History - Cancer: Brain, Stomach Sister Family History - Medical: No pertinent hx Family History - Cardiac/Respiratory: Myocardial Infarction Family History - Cancer: Other - Social History Living Situations: home Abuse History: No History of abuse Psych History: No pertinent hx Alcohol Use: none Drug Use: none - Immunizations Immunizations Up to Date: Yes Hx Pneumococcal Vaccination: Yes History of Influenza Vaccine: No Physical Exam - Physical Exam General Appearance: Present: wd/wn, alert, no apparent distress Head Exam: Present: normal inspection, no evidence of injury Eye Exam: Normal inspection: bilateral, PERRL: bilateral Ears, Nose, Throat: Present: normal ENT inspection, H, normal pharynx Neck: Present: normal inspection, nontender Respiratory: Present: no respiratory distress, normal breath sounds, no accessory muscle use, chest nontender, lungs clear Cardiovascular/Chest: Present: regular rate, rhythm, no murmur, normal peripheral pulses Gastrointestinal/Abdominal: Present: normal bowel sounds, nontender, nondistended, soft, no organomegaly Rectal Exam: Present: deferred Back Exam: Present: normal inspection, normal range of motion Extremity Exam: Present: normal inspection, non-tender, no edema, normal range of motion Neurological Exam: Present: alert, oriented, normal mood/affect Skin Exam: Present: normal color, warm/dry Lymphatic Exam: Present: no adenopathy ED Progress - Results and Orders Patient's Lab Results:: I have reviewed the patient's lab results. - Vital Signs Patient's Vital Signs:: I have reviewed the patient's vital signs. Vital Signs: Vital Signs 03/12/17 10:43 Temperature 36.5 C Pulse Rate 72 Respiratory 20 Rate Blood Pressure 125/69 O2 Sat by Pulse 96 Oximetry - EKG EKG: NSR - CT/Ultrasound CT/Ultrasound Narrative: CT the head is reviewed by me - Progress/Reassessment Chief Complaint: General Assessment Plan - Plan Plan: All the patient's symptoms improved We gave him 1 amp of D50. I suspect that the patient has been having fluctuating hyperglycemic episodes which would account for his strokelike symptoms. Patient is discharged home in stable condition and he will try to do a better job watching his blood sugar at home. Departure Clinical Impression: Hypoglycemia - Departure Disposition: Home self-care Condition: Good Instructions: Hypoglycemia, Tiso-of-Xsqr Additional Instructions: Call your family doctor for an appointment and discuss your diabetes medicines. Check her blood sugars several times a day and discuss these results with her family doctor. Keep sugar cubes around the house and if you exhibited any symptoms like you've had take a sugar cube first.
[2017-03-12 11:12] LABS: Hematocrit 41.5 % (42.0-52.0); Hemoglobin 14.2 gm/dL (13.5-18.0); Mean Cell Volume 83.8 fl (78-100); Mean Corpuscular Hemoglobin 28.7 pg (27-31); Mean Corpuscular Hgb Conc 34.2 g/dl (32-36); Mean Platelet Volume 11.2 fl (6.0-9.5); Neutrophil # 5.4 K/mm3 (1.3-6.0); Platelet Count 220 K/mm3 (150-450); Red Blood Count 4.95 M/mm3 (4.7-6.0); Red Cell Distribution Width 13.1 % (11.5-14.0); White Blood Count 9.1 K/mm3 (4.0-10.5)
[2017-03-12 11:23] LABS: Prothrombin Time (Patient) 10.2 Seconds (9.0-11.0)
[2017-03-12 11:26] LABS: Albumin * 3.1 gm/dl (3.4-5.0); Anion Gap 9.8 mmol/L (6.8-13.8); Bilirubin, Total 0.5 mg/dL (0.0-1.1); Ca. Corrected For Albumin 9.3 mg/dL (8.4-10.2); Calcium * 8.9 mg/dL (7.9-10.9); Carbon Dioxide 30.8 mmol/L (24-32.6); Magnesium 1.8 mg/dL (1.2-2.8); Potassium 3.6 mmol/L (3.4-4.6); Total Protein 6.5 gm/dL (6.2-8.2)
[2017-03-12 11:27] LABS: INR 1.02 INR (0.90-1.10); Partial Thrombolplastin Time 25.4 Seconds (24-32)
[2017-03-12 13:59] VITALS: BP 113/64
== END 2017-03-12 14:29 | disposition home or self-care (01) ==
LOC: ER 10:39
DX: E16.2 Hypoglycemia, unspecified; I25.2 Old myocardial infarction; I10 Essential (primary) hypertension; J44.9 Chronic obstructive pulmonary disease, unspecified; Z79.4 Long term (current) use of insulin; Z87.440 Personal history of urinary (tract) infections; E78.5 Hyperlipidemia, unspecified; E11.9 Type 2 diabetes mellitus without complications

== ENCOUNTER 2018-11-14 00:28 | Inpatient (IN) ==
[2018-11-14] MEDS ORDERED: MORPHINE SULFATE 4 MG/ML SYRG IV ONE (00:55)
[2018-11-14] MEDS ORDERED: ONDANSETRON HCL/PF 2 MG/ML VIAL IV ONE (00:56)
[2018-11-14] MEDS ORDERED: NORMAL SALINE 1,000 ML IV ONE ×2 (01:03→04:07)
--- NOTE | 2018-11-14 01:03 | ERNOTE ---
Abdominal HPI - Narrative Date of Service: 11/14/18 - General Chief Complaint: Abdominal Pain Time Seen by Provider: 11/14/18 00:51 Source: patient Exam Limitations: clinical condition - Immun/Allergies/Home Medications Immunizatons: IMMUNIZATION HX Immunizations Up to Date Yes History of Influenza Vaccine Yes Hx Pneumococcal Vaccination Yes Allergies/Adverse Reactions: Allergies lisinopril Allergy (Mild, Verified 10/28/18 13:16) Hives, "FEELS SICK" tamsulosin HCl [From Flomax] Adverse Reaction (Mild, Verified 10/28/18 13:16) "FEELS SICK" Home Medications: HOME MEDICATIONS Blood-Glucose Meter [Freestyle Lite Meter] 1 ea MC ACHS 12/24/11 [Last Taken 06/14/18] Nitroglycerin [Nitrostat 0.4 MG] 1 tab SL Q5MX3 PRN 12/24/11 [Last Taken Unknown] Aspirin [Aspirin Enteric Coated] 325 mg PO DAILY 01/29/16 [Last Taken 06/16/18] albuterol sulfate 2.5 mg/3 mL (0.083 %) solution for nebulization 2.5 mg IH QID #180 ml 11/30/17 [Last Taken 06/01/18] metoprolol tartrate 25 mg tablet 25 mg PO BID #180 tab 01/29/18 [Last Taken 06/17/18] clopidogrel 75 mg tablet 75 mg PO DAILY #90 tab 03/25/18 [Last Taken 06/16/18] gabapentin 400 mg capsule 400 mg PO TID 90 Days #270 cap 03/25/18 [Last Taken 06/16/18] Amlodipine Besylate 5 mg PO DAILY 06/01/18 [Last Taken 06/16/18] Atorvastatin Calcium [Lipitor] 20 mg PO DAILY 06/01/18 [Last Taken 06/16/18] Glucagon HCl 1 mg IJ PRN PRN 06/01/18 [Last Taken Unknown] Syringe-Needle,Insulin,0.5 ml [Collectricetouch Insulin Syringe] 0 ea .ROUTE .MEDSUPPLY 06/01/18 [Last Taken 06/14/18] albuterol sulfate HFA 90 mcg/actuation aerosol inhaler 2 puff IH QID PRN #18 g 06/01/18 [Last Taken 06/01/18] metFORMIN HCL [Glucophage] 1,000 mg PO BID 06/01/18 [Last Taken 06/16/18] BD Ultra-Fine Mini Pen Needle 31 gauge x 3/16" See Dose Instructions .ROUTE .MEDSUPPLY #100 ea NS 06/30/18 [Last Taken Unknown] insulin aspart U-100 100 unit/mL subcutaneous solution See Rx Instructions .ROUTE .COMPLEX #30 ml 06/30/18 [Last Taken Unknown] silver sulfadiazine 1 % topical cream 1 applic TP DAILY #50 g 07/22/18 [Last Taken Unknown] Fluticasone Propion/Salmeterol [Advair 250-50 Diskus] 1 puff INHALATION BID 08/30/18 [Last Taken Unknown] Montelukast Sodium [Singulair] 10 mg PO HS 08/30/18 [Last Taken Unknown] Sulfamethoxazole/Trimethoprim [Bactrim Ds] 1 tab PO BID #20 tab 11/05/18 [Last Taken Unknown] insulin glargine (U-100) 100 unit/mL (3 mL) subcutaneous pen 43 unit SUBCUT .AM #15 ml 11/08/18 [Last Taken Unknown] - History of Present Illness Narrative: patient had nausea and vomiting with diarrhea for several days ,got better only to return this evening, also c/o right sided neck pain Timing: constant, getting worse Quality: moderate, aching, burning, cramping, throbbing Activities at Onset: none Modifying Factors - (Improves): Present: other - nothing Modifying Factors - (Worsens): Present: other - nothing Associated Symptoms: Present: diarrhea-mucous, fatigue, nausea, vomiting, loss of appetite Prior Abdominal Problems: Present: similar symptoms Review of Systems - Review of Systems Constitutional: Present: fatigue, malaise EYE: Present: no symptoms reported ENT: Present: no symptoms reported Respiratory: Present: no symptoms reported Cardiology: Present: no symptoms reported Gastrointestinal/Abdominal: Present: See HPI, nausea, vomiting, diarrhea, abdominal pain, eating less, drinking less Genitourinary: Present: no symptoms reported Musculoskeletal: Present: neck pain Skin: Present: no symptoms reported Neurological: Present: no symptoms reported Endocrine: Present: no symptoms reported Hematologic/Lymphatic: Present: no symptoms reported Psych: Present: no symptoms reported All Other Systems: All systems neg except as marked Medical History (Updated 11/09/18 @ 13:30 by VICTOR M Perdue) Hiatal hernia (Chronic) Onset Date: ~1994 Gastroesophageal reflux (Chronic) Onset Date: Unknown DJD (degenerative joint disease), multiple sites (Chronic) Onset Date: Unknown Diabetes 1.5, 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 Depression (Chronic) Onset Date: Unknown CAD (coronary artery disease) (Chronic) Onset Date: Unknown COPD (chronic obstructive pulmonary disease) (Chronic) Onset Date: ~1985 BPH (benign prostatic hyperplasia) (Chronic) Onset Date: ~2005 TURP Asthma (Chronic) Onset Date: ~1985 Bronchitis Onset Date: ~10/2016 [facility] inpatient Contracture of tendon Onset Date: ~01/08/12 Diabetic foot ulcers Lives with spouse Myocardial infarction Onset Date: ~2009 No history of alcohol use Non-tobacco user Respiratory failure Onset Date: ~10/2016 Acute; unspecified whether with hypoxia or hypercapnia, inpatient at [facility] Hyperlipidemia Onset Date: ~2004 Leukocytosis Onset Date: ~2003 Chambers's neuroma Onset Date: ~12/03/11 Neck pain Onset Date: ~2005 history of neck injury Peripheral neuropathy Onset Date: ~08/06/05 secondary to diabetes Spinal stenosis Onset Date: Unknown UTI (urinary tract infection) Onset Date: Unknown Surgical History: Surgical History (Updated 08/30/18 @ 14:08 by Yvonne Christine [facility]) History of bilateral cataract extraction H/O colonoscopy Onset Date: ~01/200607/15/11; ' Normal follow up in 7-10 years. ' [place] H/O knee surgery Onset Date: ~1959 [facility] History of esophagogastroduodenoscopy (EGD) Onset Date: ~07/15/11 With biopsy. Mariel BERTHA test negative Hx laparoscopic cholecystectomy Onset Date: ~12/26/11 [place] Male circumcision Onset Date: ~07/2005 Aher S/P TURP (status post transurethral resection of prostate) Onset Date: ~04/2005 AHER S/P cervical spinal fusion Onset Date: ~1989 1999. Posterior and anterior fusion. Initially done in 1989 then repeated in 1999 S/P epidural steroid injection Onset Date: ~04/2005 6/, 9/, L3-4, C7-T1, L4-5, and L5-S1 Stented coronary artery Onset Date: ~06/30/12 [facility]; Left anterior descending artery utilizing a 2.75 x 20 mm promus stent Family History: Family History (Last Reviewed 11/14/18 @ 00:38 by Sariah Pierson RN) Father , age 68 Cancer lung Mother , age 65 Diabetes Hypertension CVA (cerebral vascular accident) Brother , 1 at age 57 due to brain cancer; 1 at age 62 lung/stomach cancer; 1 age 72 stomach cancer; 3 at ages 51, 56, and 41 due to PA No problems noted. Sister , 1 at age 39 due to uterine cancer; one at age 73 PA Myocardial infarction Sister Sister Sister Cancer cervical Sister Cancer unknown type Sister Cancer brain cancer Brother Brother Cancer unknown type Brother Brother Cancer unknown type Brother Myocardial infarction Brother Cancer brain cancer Brother Brother Unknown whether patient has any health problems Son Alive and well Son Alive and well Daughter Alive and well Son Alive and well Son Alive and well Daughter Hypertension Daughter Alive and well Social History: (Last Reviewed 11/14/18 @ 00:39 by Sariah Pierson RN) Social History: adopted: No Marital status: lives independently: Yes household members: spouse number of children: 7 current occupational status: retired Highest education level completed: 9th grade Service: No Tobacco: Smoking Status: Former smoker how long ago did patient quit smoking: age 39 Alcohol: alcohol intake: former Substance Use: substance use type: unknown Dietary Habits: caffeine: Yes Physical Exam - Physical Exam General Appearance: Present: moderate distress, anxious Head Exam: Present: normal inspection, no evidence of injury Eye Exam: Normal inspection: bilateral, PERRL: bilateral, EOMI: bilateral Ears, Nose, Throat: Present: normal ENT inspection, normal pharynx Neck: Present: other - right sided neck pain with radiation to right arm Respiratory: Present: no respiratory distress, normal breath sounds, no accessory muscle use, chest nontender, lungs clear Cardiovascular/Chest: Present: regular rate, rhythm, no murmur, normal peripheral pulses Gastrointestinal/Abdominal: Present: tenderness, distended Back Exam: Present: normal inspection, normal range of motion, no CVA tenderness, no vertebral tenderness Extremity Exam: Present: normal inspection, non-tender, normal range of motion, no edema Neurological Exam: Present: alert, oriented, normal mood/affect, no m otor/sensory deficits Skin Exam: Present: normal color, warm/dry Lymphatic Exam: Present: no adenopathy Progress - Date and Time Seen: Date and Time: 11/14/18 04:00 patient improvedaccepted for admissiondiscussed case with dr schrader, - Results and Orders Patient's Lab Results:: I have reviewed the patient's lab results. - Vital Signs Patient's Vital Signs:: I have reviewed the patient's vital signs. Vital Signs: Vital Signs 11/14/18 00:32 Temperature 36.8 C Pulse Rate 103 H Respiratory Rate 16 Blood Pressure 163/107 H O2 Sat by Pulse Oximetry 99 - Progress/Reassessment Chief Complaint: Abdominal Pain Progress:: Improved - Transfer of Care Expected Disposition: Admit Plan - Plan Plan: to be admitted Departure Clinical Impression: Gastroenteritis, Hypertension, Urinary retention - Departure Disposition: Still a patient Condition: Stable Referrals: Steven Martinez MD [Primary Care Provider] -
[2018-11-14] MEDS ORDERED: LABETALOL HCL 5 MG/ML VIAL IV ONE (01:13)
[2018-11-14 01:21] LABS: Hematocrit 41.3 % (42.0-52.0); Hemoglobin 14.9 gm/dL (13.5-18.0); Mean Cell Volume 81.6 fl (78-100); Mean Corpuscular Hemoglobin 29.4 pg (27-31); Mean Corpuscular Hgb Conc 36.1 g/dl (32-36); Mean Platelet Volume 12.2 fl (8-11.3); Neutrophil # 6.9 K/mm3 (1.3-6.0); Neutrophil % 76.2 % (42-75.0); Platelet Count 179 K/mm3 (150-450); Red Blood Count 5.06 M/mm3 (4.7-6.0); Red Cell Distribution Width 12.7 % (11.5-14.0); White Blood Count 9.1 K/mm3 (4.0-10.5)
[2018-11-14 01:41] LABS: ALT 8 U/L (19-67); AST 12 U/L (0-48); Albumin * 3.8 gm/dl (3.4-5.0); Alkaline Phosphatase * 90 U/L (50-170); Amylase * 33 U/L (25-115); Anion Gap 14.8 mmol/L (6.8-13.8); BUN/Creatinine Ratio 18.3 (9.0-21.6); Bilirubin, Total 0.9 mg/dL (0.0-1.1); Blood Urea Nitrogen 17 mg/dL (6-23); Ca. Corrected For Albumin 9.3 mg/dL (8.4-10.2); Calcium * 9.5 mg/dL (7.9-10.9); Carbon Dioxide 24.6 mmol/L (24-32.6); Chloride 101 mmol/L (97-106); Glucose * 291 mg/dL (70-110); Lipase 27 U/L (73-393); Potassium 3.4 mmol/L (3.4-4.6); Sodium 137 mmol/L (132-142); Total Protein 7.5 gm/dL (6.2-8.2)
[2018-11-14 01:46] LABS: Troponin I Less than 0.017 ng/mL (0.00-0.10)
[2018-11-14] MEDS: NICARDIPINE HCL 25 MG in NORMAL SALINE 240 ML IV PRN ×3 (02:13→14:29)
[2018-11-14 03:11] LABS: Urine Bilirubin Negative (NEGATIVE); Urine Blood Negative /ul (NEGATIVE); Urine Ketone 15 mg/dL (NEGATIVE); Urine Nitrite Negative (NEGATIVE); Urine Protein Negative (NEGATIVE); Urine Urobilinogen Normal (NORMAL); Urine pH 7.5 pH (5.0-7.0)
[2018-11-14 03:30] LABS: Urine Appearance Clear (CLEAR); Urine Bacteria None Seen; Urine Color Yellow; Urine RBC None Seen /hpf (0-5); Urine WBC None Seen /hpf (0-5)
[2018-11-14] MEDS ORDERED: MORPHINE SULFATE 4 MG/ML SYRG IV PRN (05:32)
[2018-11-14] MEDS ORDERED: MEPERIDINE HCL/PF 50 MG/ML SYRG IV PRN ×2 (09:59→15:13)
[2018-11-14] MEDS: ONDANSETRON HCL 8 MG TABLET PO PRN ×2 (10:20→17:19)
[2018-11-14] MEDS: PANTOPRAZOLE SODIUM 40 MG in NORMAL SALINE 100 ML IV SCH (10:47)
[2018-11-14] MEDS: INSULIN GLARGINE,HUM.REC.ANLOG 100 UNITS/ML VIAL SC SCH (10:48)
[2018-11-14] MEDS ORDERED: INSULIN LISPRO 100 UNITS/ML VIAL SC SCH (11:00)
[2018-11-14] MEDS: ALBUTEROL SULFATE 2.5 MG/0.5 ML VIAL.NEB IH SCH ×3 (12:10→20:00)
[2018-11-14] MEDS: GABAPENTIN 400 MG CAPSULE PO SCH ×2 (12:10→17:27)
[2018-11-14] MEDS ORDERED: PROCHLORPERAZINE MALEATE 10 MG TABLET PO PRN (13:53)
[2018-11-14] MEDS: INSULIN LISPRO 100 UNITS/ML VIAL SC SCH ×2 (13:56→17:20)
--- NOTE | 2018-11-14 15:40 | HP ---
Chief Complaint - Chief Complaint Date of Service: 11/14/18 Time of Service: 08:30 Chief Complaint: Severe hypertension, Gastroenteritis, Low back pain, R. shoulder pain, acute urinary retention History of Present Illness: Jake Lawler is a 77-year-old male who presented to the emergency room last night with intractable nausea and vomiting, acute urinary retention which she had had for 2 days, severe low back pain, upper right shoulder and neck pain and pain radiating to the right wrist. 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 Depression (Chronic) Onset Date: Unknown CAD (coronary artery disease) (Chronic) Onset Date: Unknown COPD (chronic obstructive pulmonary disease) (Chronic) Onset Date: ~1985 BPH (benign prostatic hyperplasia) (Chronic) Onset Date: ~2005 TURP Asthma (Chronic) Onset Date: ~1985 Bronchitis Onset Date: ~10/2016 [facility] inpatient Contracture of tendon Onset Date: ~01/08/12 Diabetic foot ulcers Lives with spouse Myocardial infarction Onset Date: ~2009 No history of alcohol use Non-tobacco user Respiratory failure Onset Date: ~10/2016 Acute; unspecified whether with hypoxia or hypercapnia, inpatient at [facility] Hyperlipidemia Onset Date: ~2004 Leukocytosis Onset Date: ~2003 Chambers's neuroma Onset Date: ~12/03/11 Neck pain Onset Date: ~2005 history of neck injury Peripheral neuropathy Onset Date: ~08/06/05 secondary to diabetes Spinal stenosis Onset Date: Unknown UTI (urinary tract infection) Onset Date: Unknown Surgical History: Surgical History (Updated 08/30/18 @ 14:08 by VICTOR M Perdue) History of bilateral cataract extraction H/O colonoscopy Onset Date: ~01/200607/15/11; ' [place] Normal follow up in 7-10 years. ' [place] H/O knee surgery Onset Date: ~1959 Right- [place] History of esophagogastroduodenoscopy (EGD) Onset Date: ~07/15/11 With biopsy. Mariel BERTHA test negative Hx laparoscopic cholecystectomy Onset Date: ~12/26/11 [place] Male circumcision Onset Date: ~07/2005 [facility] S/P TURP (status post transurethral resection of prostate) Onset Date: ~04/2005 [facility] S/P cervical spinal fusion Onset Date: ~1989 1999. Posterior and anterior fusion. Initially done in 1989 then repeated in 1999 S/P epidural steroid injection Onset Date: ~04/2005 6/, 11/01, L3-4, C7-T1, L4-5, and L5-S1 Stented coronary artery Onset Date: ~06/30/12 [place]; Left anterior descending artery utilizing a 2.75 x 20 mm promus stent Family History: Family History (Last Reviewed 11/14/18 @ 04:50 by Yvon Caldwell RN) Father , age 68 Cancer lung Mother , age 65 Diabetes Hypertension CVA (cerebral vascular accident) Brother , 1 at age 57 due to brain cancer; 1 at age 62 lung/stomach cancer; 1 age 72 stomach cancer; 3 at ages 51, 56, and 41 due to [place] No problems noted. Sister , 1 at age 39 due to uterine cancer; one at age 73 [place] Myocardial infarction Sister Sister Sister Cancer cervical Sister Cancer unknown type Sister Cancer brain cancer Brother Brother Cancer unknown type Brother Brother Cancer unknown type Brother Myocardial infarction Brother Cancer brain cancer Brother Brother Unknown whether patient has any health problems Son Alive and well Son Alive and well Daughter Alive and well Son Alive and well Son Alive and well Daughter Hypertension Daughter Alive and well Social History: (Last Reviewed 11/14/18 @ 04:50 by Yvon Caldwell RN) Social History: adopted: No Marital status: lives independently: Yes household members: spouse number of children: 7 current occupational status: retired Highest education level completed: 9th grade Service: No Tobacco: Smoking Status: Former smoker how long ago did patient quit smoking: age 39 Alcohol: alcohol intake: former Substance Use: substance use type: unknown Dietary Habits: caffeine: Yes Review Of Systems (GEN) - Review of Systems Generalized/Overall Review: Present: Weakness, Malaise EENTM: Present: No Symptoms Reported Respiratory: Present: No Symptoms Reported Cardiac: Present: No Symptoms Reported Abdominal: Present: Nausea, Vomiting, Abdominal Pain Genitourinary: Present: Retention Musculoskeletal: Present: No Symptoms Reported, Joint Pain - Right shoulder pain, Back Pain Neurological: Present: No Symptoms Reported Skin: Present: No Symptoms Reported Endocrine: Present: No Symptoms Reported Immunizations: IMMUNIZATION HX Immunizations Up to Date Yes History of Influenza Vaccine Yes Hx Pneumococcal Vaccination Yes Allergies/Adverse Reactions: Allergies Allergy/AdvReac Type Severity Reaction Status Date / Time lisinopril Allergy Mild Hives, Verified 11/14/18 04:51 "FEELS SICK" tamsulosin HCl [From Flomax] AdvReac Mild "FEELS Verified 11/14/18 04:51 SICK" Home Medications: HOME MEDICATIONS Blood-Glucose Meter [Freestyle Lite Meter] 1 ea MC ACHS 12/24/11 [Last Taken 06/14/18] Nitroglycerin [Nitrostat 0.4 MG] 1 tab SL [id number] PRN 12/24/11 [Last Taken Unknown] Aspirin [Aspirin Enteric Coated] 325 mg PO DAILY 01/29/16 [Last Taken 06/16/18] albuterol sulfate 2.5 mg/3 mL (0.083 %) solution for nebulization 2.5 mg IH QID #180 ml 11/30/17 [Last Taken 06/01/18] metoprolol tartrate 25 mg tablet 25 mg PO BID #180 tab 01/29/18 [Last Taken 06/17/18] clopidogrel 75 mg tablet 75 mg PO DAILY #90 tab 03/25/18 [Last Taken 06/16/18] gabapentin 400 mg capsule 400 mg PO TID 90 Days #270 cap 03/25/18 [Last Taken 06/16/18] Amlodipine Besylate 5 mg PO DAILY 06/01/18 [Last Taken 06/16/18] Atorvastatin Calcium [Lipitor] 20 mg PO DAILY 06/01/18 [Last Taken 06/16/18] Glucagon HCl 1 mg IJ PRN PRN 06/01/18 [Last Taken Unknown] Syringe-Needle,Insulin,0.5 ml [OurHouse[employer]ouch Insulin Syringe] 0 ea .ROUTE .MEDSUPPLY 06/01/18 [Last Taken 06/14/18] albuterol sulfate HFA 90 mcg/actuation aerosol inhaler 2 puff IH QID PRN #18 g 06/01/18 [Last Taken 06/01/18] metFORMIN HCL [Glucophage] 1,000 mg PO BID 06/01/18 [Last Taken 06/16/18] BD Ultra-Fine Mini Pen Needle 31 gauge x 05/08" See Dose Instructions .ROUTE .MEDSUPPLY #100 ea NS 06/30/18 [Last Taken Unknown] insulin aspart U-100 100 unit/mL subcutaneous solution See Rx Instructions .ROUTE .COMPLEX #30 ml 06/30/18 [Last Taken Unknown] silver sulfadiazine 1 % topical cream 1 applic TP DAILY #50 g 07/22/18 [Last Taken Unknown] Fluticasone Propion/Salmeterol [Advair 250-50 Diskus] 1 puff INHALATION BID 08/30/18 [Last Taken Unknown] Montelukast Sodium [Singulair] 10 mg PO HS 08/30/18 [Last Taken Unknown] Sulfamethoxazole/Trimethoprim [Bactrim Ds] 1 tab PO BID #20 tab 11/05/18 [Last Taken Unknown] insulin glargine (U-100) 100 unit/mL (3 mL) subcutaneous pen 43 unit SUBCUT .AM #15 ml 11/08/18 [Last Taken Unknown] Exam - Exam Vital Signs: Vital Signs - Last Taken Temp 36.4 C 11/14/18 09:43 Pulse 110 H 11/14/18 14:00 Resp 12 11/14/18 14:00 BP 123/66 11/14/18 14:00 Pulse Ox 94 11/14/18 14:00 Constitutional: Present: Alert, Oriented x3, Cooperative, Well developed, Well nourished, Moderate distress ENT Exam: Present: normal ENT inspection, hearing grossly normal, pharynx normal Eye Exam: bilateral eye: normal inspection, PERRL, EOMI Neck: Present: non-tender, full range of motion, supple, normal inspection, trachea midline Back Exam: Present: normal inspection, no CVA tenderness, no vertebral tenderness Breasts: Present: Exam deferred Respiratory: Present: chest non-tender, lungs clear, no respiratory distress, no accessory muscle use, decreased breath sounds, expiration (prolonged), No rales, No wheezing Cardiovascular/Chest: Present: normal peripheral pulses, regular rate, rhythm, no chest tenderness, no edema, no gallop, no JVD, no murmur, no rub Peripheral Pulses: carotid (R): 2+, carotid (L): 2+, radial (R): 2+, radial (L): 2+ Abdomen: Present: Normal bowel sounds, soft, nontender, nondistended, no rebound tenderness, no hepatospenomegaly, no masses /Rectal: Present: Exam deferred Extremity: Present: normal range of motion, non-tender, normal inspection, no pedal edema, no calf tenderness, normal capillary refill Skin Exam: Present: normal color, warm/dry, no cyanosis Lymphatic: Present: no adenopathy Neurologic: 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0) K/mm3 Lymphocytes # 1.21 L (1.5-3.5) k/mm3 Anion Gap 14.8 H (6.8-13.8) mmol/L Random Glucose 291 H (70-110) mg/dL ALT 8 L (19-67) U/L Lipase 27 L (73-393) U/L Urine Glucose (UA) >=1000 H (NEGATIVE) mg/dL Laboratory Results WBC 9.1 K/mm3 (4.0-10.5) 11/14/18 01:22 RBC 5.06 M/mm3 (4.7-6.0) 11/14/18 01:22 Hgb 14.9 gm/dL (13.5-18.0) 11/14/18 01:22 Hct 41.3 % (42.0-52.0) L 11/14/18 01:22 MCV 81.6 fl (78-100) 11/14/18 01:22 MCH 29.4 pg (27-31) 11/14/18 01:22 MCHC 36.1 g/dl (32-36) H 11/14/18 01:22 RDW 12.7 % (11.5-14.0) 11/14/18 01:22 Plt Count 179 K/mm3 (150-450) 11/14/18 01:22 MPV 12.2 fl (8-11.3) H 11/14/18 01:22 Immature Gran % (Auto) 0.20 % (0.001-0.429) 11/14/18 01:22 Immature Gran # (Auto) 0.02 K/mm3 (0.000-0.0310) 11/14/18 01:22 76.2 % (42-75.0) H 11/14/18 01:22 13.3 % (20-51) L 11/14/18 01:22 8.5 % (0.0-9) 11/14/18 01:22 1.0 % (0.0-3.0) 11/14/18 01:22 0.8 % (0.0-1.0) 11/14/18 01:22 Nucleated RBC % 0.0 k/mm3 (0-1) 11/14/18 01:22 6.9 K/mm3 (1.3-6.0) H 11/14/18 01:22 1.21 k/mm3 (1.5-3.5) L 11/14/18 01:22 0.8 k/mm3 (0.0-1.0) 11/14/18 01:22 0.1 k/mm3 (0.0-0.7) 11/14/18 01:22 Absolute Basophils 0.1 k/mm3 (0.0-0.1) 11/14/18 01:22 Sodium 137 mmol/L (132-142) 11/14/18 01:22 140 mmol/L (130-142) 11/14/18 01:22 Potassium 3.4 mmol/L (3.4-4.6) 11/14/18 01:22 Chloride 101 mmol/L (97-106) 11/14/18 01:22 Carbon Dioxide 24.6 mmol/L (24-32.6) 11/14/18 01:22 14.8 mmol/L (6.8-13.8) H 11/14/18 01:22 BUN 17 mg/dL (6-23) 11/14/18 01:22 0.93 mg/dL (0.4-1.4) 11/14/18 01:22 Est GFR (Non-Af Amer) 101 mL/min (60-130) 11/14/18 01:22 18.3 (9.0-21.6) 11/14/18 01:22 291 mg/dL (70-110) H 11/14/18 01:22 Calcium 9.5 mg/dL (7.9-10.9) 11/14/18 01:22 Calcium Adj for Albumin 9.3 mg/dL (8.4-10.2) 11/14/18 01:22 0.9 mg/dL (0.0-1.1) 11/14/18 01:22 AST 12 U/L (0-48) 11/14/18 01:22 ALT 8 U/L (19-67) L 11/14/18 01:22 90 U/L (50-170) 11/14/18 01:22 Less than 0.017 ng/mL (0.00-0.10) 11/14/18 01:22 7.5 gm/dL (6.2-8.2) 11/14/18 01:22 3.8 gm/dl (3.4-5.0) 11/14/18 01:22 Amylase 33 U/L (25-115) 11/14/18 01:22 27 U/L (73-393) L 11/14/18 01:22 Yellow 11/14/18 03:02 Clear (CLEAR) 11/14/18 03:02 7.5 pH (5.0-7.0) 11/14/18 03:02 Ur Specific [place] 1.010 SP.GR. (1.005-1.030) 11/14/18 03:02 Negative mg/dL (NEGATIVE) 11/14/18 03:02 >=1000 mg/dL (NEGATIVE) H 11/14/18 03:02 15 mg/dL (NEGATIVE) 11/14/18 03:02 Negative /ul (NEGATIVE) 11/14/18 03:02 Negative (NEGATIVE) 11/14/18 03:02 Negative mg/dl (NEGATIVE) 11/14/18 03:02 Normal EU/dl (NORMAL) 11/14/18 03:02 Ur Leukocyte Esterase Negative /ul (NEGATIVE) 11/14/18 03:02 None seen /hpf (0-5) 11/14/18 03:02 None seen /hpf (0-5) 11/14/18 03:02 Ur Epithelial Cells None seen /hpf (0-5) 11/14/18 03:02 None seen (NONE) 11/14/18 03:02 No culture indicated 11/14/18 03:02 Assessment/Plan - Narrative Narrative: 1. Continue IV Cardene and titrate to lowest effective dose until he can resume taking his oral antihypertensive medicine. 2. Olsen catheter to dependent drainage 3. Schedule abdominal complete ultrasound tomorrow. Note patient has had a previous cholecystectomy. 4. Meperidine 50 mg (and may increase to 75 mg) every 3 hours as needed for pain 5. Compazine 10 mg 1 p.o. every 6 hours as needed nausea vomiting 6. Reintroduce oral anti-hypertensive medicine when he can tolerate liquids again. 7. Keep in SCU as long as he is on a Cardene drip. - Assessment/Plan (1) Intractable nausea and vomiting Problem: Acute (2) Abdominal pain Problem: Acute Qualifiers: Abdominal location: epigastric Qualified Code(s): R10.13 - Epigastric pain (3) Hypertension Problem: Chronic (4) Urinary retention Problem: Acute
[2018-11-14] MEDS: SUCRALFATE 1 G/10 ML UDC PO SCH ×2 (17:19→20:00)
[2018-11-14] MEDS: DOXAZOSIN MESYLATE 2 MG TABLET PO SCH (20:01)
[2018-11-14] MEDS: METOPROLOL TARTRATE 25 MG TABLET PO SCH (20:01)
[2018-11-14] MEDS: MONTELUKAST SODIUM 10 MG TABLET PO SCH (20:03)
[2018-11-14] MEDS: FLUTICASONE PROPION/SALMETEROL 14 PUFF DISK.W.DEV IH SCH (20:18)
[2018-11-14] MEDS ORDERED: SULFAMETHOXAZOLE/TRIMETHOPRIM 1 TAB TABLET PO SCH (21:00)
[2018-11-14] MEDS ORDERED: NORMAL SALINE 500 ML IV ONE (21:59)
[2018-11-14] MEDS: NORMAL SALINE 1,000 ML IV PRN (22:44)
[2018-11-15] MEDS: ONDANSETRON HCL 8 MG TABLET PO PRN ×2 (01:22→11:47)
[2018-11-15 05:52] LABS: Anion Gap 11.1 mmol/L (6.8-13.8); Bilirubin, Total 0.8 mg/dL (0.0-1.1); Ca. Corrected For Albumin 8.5 mg/dL (8.4-10.2); Carbon Dioxide 27.2 mmol/L (24-32.6); Potassium 3.3 mmol/L (3.4-4.6)
[2018-11-15 06:10] LABS: Hemoglobin 12.5 gm/dL (13.5-18.0); Mean Cell Volume 84.3 fl (78-100); Mean Corpuscular Hemoglobin 29.3 pg (27-31); Mean Corpuscular Hgb Conc 34.7 g/dl (32-36); Platelet Count 175 K/mm3 (150-450); Red Blood Count 4.27 M/mm3 (4.7-6.0); White Blood Count 7.4 K/mm3 (4.0-10.5)
[2018-11-15] MEDS: ALBUTEROL SULFATE 2.5 MG/0.5 ML VIAL.NEB IH SCH ×4 (06:13→18:02)
[2018-11-15 06:44] LABS: Hemoglobin A1C 7.9 % (4.00-6.0)
[2018-11-15] MEDS: INSULIN LISPRO 100 UNITS/ML VIAL SC SCH ×4 (07:00→17:38)
[2018-11-15] MEDS: NORMAL SALINE 1,000 ML IV PRN (07:30)
[2018-11-15] MEDS ORDERED: ALBUTEROL SULFATE 2.5 MG/0.5 ML VIAL.NEB IH PRN (08:21)
[2018-11-15] MEDS ORDERED: POTASSIUM CHLORIDE 20 MEQ TABLET.SA PO ONE ×2 (08:32→09:53)
[2018-11-15] MEDS: SUCRALFATE 1 G/10 ML UDC PO SCH ×4 (08:33→21:32)
--- NOTE | 2018-11-15 08:42 | PN ---
Subjective - Date and Time Seen Date: 11/15/18 Time: 08:35 Subjective Narrative: feeling better. not as nauseous as yesterday. had low urine output . Objective - Review of Systems Generalized/Overall Review: Denies: Chills, Fever EENTM: Denies: Blurred Vision Respiratory: Denies: Cough, Shortness of Breath, Orthopnea Cardiac: Denies: Chest Pain, Edema, Palpitations Abdominal: Reports: Nausea, Vomiting, Abdominal Pain Genitourinary Symptoms: Denies: Urgency, Frequency Musculoskeletal Complaints: Reports: Joint Pain, Neck Pain Neurological: Denies: Headache, Anxiety, Depressed Skin: Denies: Lesions, Rash Endocrine: Denies: Intolerance to Cold, Intolerance to Heat Misc: All systems neg except as marked - Vitals Vitals: Last Vital Signs Temp 36.8 C 11/15/18 06:44 Pulse 93 11/15/18 06:44 Resp 15 11/15/18 06:44 BP 147/87 11/15/18 06:44 Pulse Ox 99 11/15/18 06:44 - Abnormal Lab Findings Abnormal Lab Findings: Abnormal Lab Results 11/15/18 11/15/18 11/15/18 Range/Units 05:30 05:30 05:30 RBC 4.27 L (4.7-6.0) M/mm3 Hgb 12.5 L (13.5-18.0) gm/dL Hct 36.0 L (42.0-52.0) % MPV 12.0 H (8-11.3) fl Lymphocytes % 17.6 L (20-51) % Monocytes % 11.5 H (0.0-9) % Lymphocytes # 1.30 L (1.5-3.5) k/mm3 Potassium 3.3 L (3.4-4.6) mmol/L Random Glucose 116 H D (70-110) mg/dL Hemoglobin A1c 7.9 H (4.00-6.0) % ALT 6 L (19-67) U/L Total Protein 6.0 L (6.2-8.2) gm/dL Albumin 3.0 L (3.4-5.0) gm/dl - Exam Constitutional: Present: Alert, Oriented x3, Cooperative ENT Exam: Present: hearing grossly normal Neck: Present: supple. Absent: lymphadenopathy (R), lymphadenopathy (L) Respiratory: Present: decreased breath sounds, No rales Cardiovascular/Chest: Present: regular rate, rhythm, no JVD, no murmur Abdomen: Present: Normal bowel sounds, soft, nondistended, tender, negative Nagel sign. Absent: rebound tenderness Extremity: Present: no pedal edema, no calf tenderness Cauti Physician Documentation - Urinary Catheter Management Urethral (Sales) Date of Insertion: 11/14/18 Time of Insertion: 03:11 Assessment/Plan Plan Narrative: The patient was admitted for N/V/D/abdominal pain and could not take his oral medications and admitted SCU initially by doctor validation scientist for Nicardipine drip to control his BP . He had received IV boluses for his low urine output and had to have a sales for possible retention. The patient is feeling much better. He has very little nausea this morning and his abdominal pain and neck pain are tolerable today. We will cancel his abdominal ultrasound. He had a CT scan of the abdomen and he has had a cholecystectomy in the past. We will start him on clear liquids resume his oral medications. [place] get stool for C & S, occult blood, and CDIff. - Problems/Diagnosis (1) Abdominal pain Problem: Acute Qualifiers: Abdominal location: epigastric Qualified Code(s): R10.13 - Epigastric pain (2) Gastroenteritis Problem: Acute (3) Intractable nausea and vomiting Problem: Acute (4) Hypertension Problem: Chronic (5) Urinary retention Problem: Acute (6) CAD (coronary artery disease) Problem: Chronic Qualifiers: Coronary Disease-Associated Artery/Lesion type: [place] artery [place] vs. transplanted heart: [place] heart Associated angina: without angina Qualified Code(s): I25.10 - Atherosclerotic heart disease of [place] coronary artery without angina pectoris (7) Diabetes mellitus Problem: Chronic Qualifiers: Diabetes mellitus type: type 2 Diabetes mellitus chcf insulin use: with chcf use Diabetes mellitus complication status: with neurologic complications Diabetes mellitus complication detail: with polyneuropathy Qualified Code(s): E11.42 - Type 2 diabetes mellitus with diabetic polyneuropathy (8) Diabetic neuropathy Problem: Chronic Qualifiers: Diabetes mellitus type: type 2 Diabetes mellitus complication detail: diabetic polyneuropathy Qualified Code(s): E11.42 - Type 2 diabetes mellitus with diabetic polyneuropathy
[2018-11-15] MEDS: amLODIPine BESYLATE 5 MG TABLET PO SCH (09:53)
[2018-11-15] MEDS: CLOPIDOGREL BISULFATE 75 MG TABLET PO SCH (09:53)
[2018-11-15] MEDS: METOPROLOL TARTRATE 25 MG TABLET PO SCH ×2 (09:54→21:33)
[2018-11-15] MEDS: INSULIN GLARGINE,HUM.REC.ANLOG 100 UNITS/ML VIAL SC SCH (09:58)
[2018-11-15] MEDS: GABAPENTIN 400 MG CAPSULE PO SCH ×3 (10:19→17:17)
[2018-11-15] MEDS: PANTOPRAZOLE SODIUM 40 MG in NORMAL SALINE 100 ML IV SCH (10:27)
[2018-11-15] MEDS: FLUTICASONE PROPION/SALMETEROL 14 PUFF DISK.W.DEV IH SCH ×2 (12:38→21:32)
[2018-11-15] MEDS: traMADol HCL 50 MG TABLET PO PRN (12:39)
[2018-11-15] MEDS: DOXAZOSIN MESYLATE 2 MG TABLET PO SCH (21:32)
[2018-11-15] MEDS: MONTELUKAST SODIUM 10 MG TABLET PO SCH (21:33)
[2018-11-16] MEDS: traMADol HCL 50 MG TABLET PO PRN ×2 (03:19→09:25)
[2018-11-16] MEDS: ALBUTEROL SULFATE 2.5 MG/0.5 ML VIAL.NEB IH SCH ×4 (06:02→18:10)
[2018-11-16] MEDS: ONDANSETRON HCL 8 MG TABLET PO PRN ×2 (06:59→14:54)
[2018-11-16] MEDS: SUCRALFATE 1 G/10 ML UDC PO SCH ×4 (07:00→20:06)
[2018-11-16] MEDS: INSULIN LISPRO 100 UNITS/ML VIAL SC SCH ×4 (07:01→17:03)
--- NOTE | 2018-11-16 08:37 | PN ---
Subjective - Date and Time Seen Date: 11/16/18 Time: 08:30 Objective Objective Narrative: No V/D. still with some nausea. Had antibotics before sick episode started. will advance to full liquids and progress as tolerated. - Review of Systems Generalized/Overall Review: Denies: Weakness, Chills, Fever EENTM: Denies: Blurred Vision Respiratory: Denies: Cough, Shortness of Breath, Orthopnea Cardiac: Denies: Chest Pain, Edema, Palpitations Abdominal: Reports: Nausea, Constipation - x 3 days. Denies: Vomiting, Abdominal Pain, Diarrhea Genitourinary Symptoms: Denies: Urgency, Frequency Musculoskeletal Complaints: Reports: Joint Pain, Back Pain, Neck Pain Neurological: Denies: Headache Skin: Denies: Lesions, Rash Endocrine: Denies: Intolerance to Cold, Intolerance to Heat Misc: All systems neg except as marked - Vitals Vitals: Last Vital Signs Temp 37.6 C 11/16/18 02:00 Pulse 90 11/16/18 06:12 Resp 18 11/16/18 06:12 BP 106/54 11/16/18 02:00 Pulse Ox 97 11/16/18 06:02 - Exam Constitutional: Present: Alert, Oriented x3, Cooperative ENT Exam: Present: hearing grossly normal Neck: Present: supple. Absent: lymphadenopathy (R), lymphadenopathy (L) Respiratory: Present: normal breath sounds, No wheezing Cardiovascular/Chest: Present: regular rate, rhythm, no JVD, no murmur Abdomen: Present: Normal bowel sounds, soft, nontender, distended - slightly Extremity: Present: no pedal edema, no calf tenderness Cauti Physician Documentation - Urinary Catheter Management Urethral (Sales) Date of Insertion: 11/14/18 Time of Insertion: 03:11 Assessment/Plan Plan Narrative: has had no BM since admission. has been NPO until yesterday when we started him on clear liquids. will start full liqids and progress as tolerated . maybe this stimulate BM. if not will d/c stool tests . - Problems/Diagnosis (1) Abdominal pain Problem: Resolved Qualifiers: Abdominal location: epigastric Qualified Code(s): R10.13 - Epigastric pain (2) Gastroenteritis Problem: Acute (3) Intractable nausea and vomiting Problem: Resolved Narrative: except for some nausea (4) Hypertension Problem: Chronic (5) Urinary retention Problem: Acute Narrative: will start him on flomax and remove sales catheter (6) CAD (coronary artery disease) Problem: Chronic Qualifiers: Coronary Disease-Associated Artery/Lesion type: [place] artery [place] vs. transplanted heart: [place] heart Associated angina: without angina Qualified Code(s): I25.10 - Atherosclerotic heart disease of [place] coronary artery without angina pectoris (7) Diabetes mellitus Problem: Chronic Qualifiers: Diabetes mellitus type: type 2 Diabetes mellitus residential insulin use: with superintendent [employer] use Diabetes mellitus complication status: with neurologic complications Diabetes mellitus complication detail: with polyneuropathy Qualified Code(s): E11.42 - Type 2 diabetes mellitus with diabetic polyneuropathy (8) Diabetic neuropathy Problem: Chronic Qualifiers: Diabetes mellitus type: type 2 Diabetes mellitus complication detail: diabetic polyneuropathy Qualified Code(s): E11.42 - Type 2 diabetes mellitus with diabetic polyneuropathy (9) Neck pain Problem: Chronic Narrative: will schedule injection as outpatient with anesthesia. he had injections in the past and it worked very well. continue with tramdol PRN for now.
[2018-11-16] MEDS: FLUTICASONE PROPION/SALMETEROL 14 PUFF DISK.W.DEV IH SCH ×2 (08:57→20:07)
[2018-11-16] MEDS: CLOPIDOGREL BISULFATE 75 MG TABLET PO SCH (08:58)
[2018-11-16] MEDS: GABAPENTIN 400 MG CAPSULE PO SCH ×3 (08:58→17:18)
[2018-11-16] MEDS: METOPROLOL TARTRATE 25 MG TABLET PO SCH ×2 (08:58→20:06)
[2018-11-16] MEDS: amLODIPine BESYLATE 5 MG TABLET PO SCH (08:58)
[2018-11-16] MEDS: INSULIN GLARGINE,HUM.REC.ANLOG 100 UNITS/ML VIAL SC SCH (09:02)
[2018-11-16] MEDS: PANTOPRAZOLE SODIUM 40 MG in NORMAL SALINE 100 ML IV SCH (09:56)
--- NOTE | 2018-11-16 11:03 | CONS ---
[facility] - General Date of Service: 11/16/18 Source: patient Exam Limitations: no limitations - History of Present Illness Initial Comments: Patient is a 77-year-old male, recently admitted to the hospital in regards to abdominal pain and intractable nausea and vomiting. He is a recent visitor to the [facility] in regards to an ulcer of his left heel. This area has healed and reopened over the last 2 months. He has no pain associated with the area at this time. His medical history is notable for coronary artery disease, COPD, diabetes, degenerative joint disease, OR and peripheral neuropathy. Timing/Duration: changing over time Allergies/Adverse Reactions: Allergies lisinopril Allergy (Mild, Verified 11/14/18 04:51) Hives, "FEELS SICK" tamsulosin HCl [From Flozlien] Adverse Reaction (Mild, Verified 11/14/18 04:51) "FEELS SICK" Home Medications: Home Medications Medication Instructions Recorded Last Taken Blood-Glucose Meter [Freestyle 1 ea MC ACHS 12/24/11 06/14/18 Lite Meter] Nitroglycerin [Nitrostat 0.4 MG] 1 tab SL [id number] PRN 12/24/11 Unknown Aspirin [Aspirin Enteric Coated] 325 mg PO DAILY 01/29/16 06/16/18 albuterol sulfate 2.5 mg/3 mL 2.5 mg IH QID #180 ml 11/30/17 06/01/18 (0.083 %) solution for nebulization metoprolol tartrate 25 mg tablet 25 mg PO BID #180 tab 01/29/18 06/17/18 clopidogrel 75 mg tablet 75 mg PO DAILY #90 tab 03/25/18 06/16/18 gabapentin 400 mg capsule 400 mg PO TID 90 Days #270 cap 03/25/18 06/16/18 Amlodipine Besylate 5 mg PO DAILY 06/01/18 06/16/18 Atorvastatin Calcium [Lipitor] 20 mg PO DAILY 06/01/18 06/16/18 Glucagon HCl 1 mg IJ PRN PRN 06/01/18 Unknown Syringe-Needle,Insulin,0.5 ml 0 ea .ROUTE .MEDSUPPLY 06/01/18 06/14/18 [Litetouch Insulin Syringe] albuterol sulfate HFA 90 2 puff IH QID PRN #18 g 06/01/18 06/01/18 mcg/actuation aerosol inhaler metFORMIN HCL [Glucophage] 1,000 mg PO BID 06/01/18 06/16/18 BD Ultra-Fine Mini Pen Needle 31 See Dose Instructions .ROUTE 06/30/18 Unknown gauge x 05/08" .MEDSUPPLY #100 ea NS insulin aspart U-100 100 unit/mL See Rx Instructions .ROUTE 06/30/18 Unknown subcutaneous solution .COMPLEX #30 ml silver sulfadiazine 1 % topical 1 applic TP DAILY #50 g 07/22/18 Unknown cream Fluticasone Propion/Salmeterol 1 puff INHALATION BID 08/30/18 Unknown [Advair 250-50 Diskus] Montelukast Sodium [Singulair] 10 mg PO HS 08/30/18 Unknown Sulfamethoxazole/Trimethoprim 1 tab PO BID #20 tab 11/05/18 Unknown [Bactrim Ds] insulin glargine (U-100) 100 43 unit SUBCUT .AM #15 ml 11/08/18 Unknown unit/mL (3 mL) subcutaneous pen Procedures Biopsy of mouth, unspecified structure (07/15/11) Circumcision (06/30/05) Colonoscopy (07/15/11) Esophagogastroduodenoscopy [EGD] with closed biopsy (07/15/11) Injection of anesthetic into spinal canal for analgesia (11/24/12) Injection of other agent into spinal canal (11/24/12) Injection of steroid (11/24/12) Introduction of Anti-inflammatory into Epidural Space, Percutaneous Approach (02/06/16) Introduction of Local Anesthetic into Epidural Space, Percutaneous Approach (02/06/16) Laparoscopic cholecystectomy (12/26/11) Other diagnostic procedures on lymphatic structures (07/15/11) Other transurethral prostatectomy (04/28/05) Replacement of Left Lens with Synthetic Substitute, Percutaneous Approach (01/05/17) Replacement of Right Lens with Synthetic Substitute, Percutaneous Approach (10/13/16) Retrograde pyelogram (04/28/05) Transfusion of packed cells (04/28/05) Medications - Medications Current Medications: Current Medications Albuterol Sulfate (Albuterol Sulfate 2.5 Mg/0.5ml) 2.5 mg IH QIDRT DEVIN Stop: 12/14/18 11:01 Last Admin: 11/16/18 06:02 Dose: 2.5 mg Documented by: Amlodipine Besylate (Norvasc) 5 mg PO DAILY DEVIN Stop: 12/15/18 09:01 Last Admin: 11/16/18 08:58 Dose: 5 mg Documented by: Clopidogrel Bisulfate (Plavix) 75 mg PO DAILY DEVIN Stop: 12/15/18 09:01 Last Admin: 11/16/18 08:58 Dose: 75 mg Documented by: Doxazosin Mesylate (Cardura) 2 mg PO HS DEVIN Stop: 12/14/18 21:01 Last Admin: 11/15/18 21:32 Dose: 2 mg Documented by: Gabapentin (Neurontin) 400 mg PO TID DEVIN Stop: 12/14/18 13:01 Last Admin: 11/16/18 08:58 Dose: 400 mg Documented by: Nicardipine HCl 25 mg/ Sodium (Chloride) 250 mls @ 50 mls/hr IV TITR PRN; Protocol PRN Reason: Arrhythmia Stop: 12/14/18 01:52 Last Titration: 11/14/18 20:35 Dose: Infused Documented by: Pantoprazole Sodium 40 mg/ (Sodium Chloride) 100 mls @ 400 mls/hr IV Q24H [facility] Stop: 12/14/18 10:16 Last Admin: 11/16/18 09:56 Dose: 400 mls/hr Documented by: Sodium Chloride (Sodium Chloride 0.9%) 1,000 mls @ 125 mls/hr IV .Q8H PRN PRN Reason: HYDRATION Last Infusion: 11/15/18 15:30 Dose: Infused Documented by: Insulin Glargine (Lantus) 43 units SC DAILY [facility] Stop: 12/14/18 09:46 Last Admin: 11/16/18 09:02 Dose: 43 units Documented by: Insulin Human Lispro (Humalog) 0 units SC AC DEVIN Stop: 12/14/18 17:01 Last Admin: 11/16/18 07:01 Dose: Not Given Documented by: Insulin Human Lispro (Humalog) 6 units SC DAILY@0700 DEVIN Stop: 12/15/18 07:01 Last Admin: 11/16/18 07:01 Dose: Not Given Documented by: Metformin HCl (Glucophage) 1,000 mg PO BIDWM DEVIN Stop: 12/14/18 17:01 Last Admin: 11/16/18 08:58 Dose: 1,000 mg Documented by: Metoprolol Tartrate (Lopressor) 25 mg PO BID [facility] Stop: 12/14/18 21:01 Last Admin: 11/16/18 08:58 Dose: 25 mg Documented by: Montelukast Sodium (Singulair) 10 mg PO HS DEVIN Stop: 12/14/18 21:01 Last Admin: 11/15/18 21:33 Dose: 10 mg Documented by: Ondansetron HCl (Zofran) 8 mg PO Q6H PRN PRN Reason: Nausea And Vomiting Stop: 12/14/18 09:58 Last Admin: 11/16/18 06:59 Dose: 8 mg Documented by: Prochlorperazine Maleate (Compazine) 10 mg PO Q8H PRN PRN Reason: Nausea Stop: 12/14/18 13:54 Last Admin: 11/14/18 14:21 Dose: 10 mg Documented by: Fluticasone/Salmeterol (Advair 250-50 Diskus) 1 puff IH BID DEVIN Stop: 12/14/18 21:01 Last Admin: 11/16/18 08:57 Dose: 1 puff Documented by: Sucralfate (Carafate Suspension) 1 g PO ACHS [facility] Stop: 12/14/18 17:01 Last Admin: 11/16/18 07:00 Dose: 1 g Documented by: Tramadol HCl (Ultram) 50 mg PO Q6H PRN PRN Reason: Pain Stop: 12/15/18 08:34 Last Admin: 11/16/18 09:25 Dose: 50 mg Documented by: Review of Systems - Review of Systems Generalized/Overall Review: Present: Malaise. Absent: Chills EENTM: Absent: Nose Congestion Respiratory: Absent: Cough, Shortness of Breath Cardiac: Absent: Edema Abdominal: Present: Nausea, Abdominal Pain Musculoskeletal: Present: Joint Pain, Neck Pain Skin: Present: Lesions Physical Examination - Exam Vital Signs: Vital Signs - Last Taken Temp 36.7 C 11/16/18 10:36 Pulse 92 11/16/18 10:36 Resp 18 11/16/18 10:36 BP 189/94 H 11/16/18 10:36 Pulse Ox 97 11/16/18 10:36 O2 Oxygen Delivery Method Room Air Constitutional: Present: Alert, Oriented x3, Cooperative ENT Exam: Present: hearing grossly normal Respiratory: Present: no respiratory distress Cardiovascular/Chest: Present: no edema Skin Exam: Present: warm/dry, other - ulcer to left heel measures ~ 2cm in circumference. small amount of serous drainage. no erythema. there is a thin layer of skin present throughout. Eye contact: Present: normal speech - Assessments/Findings (1) Heel ulcer Diagnosis(s): Recommend continuing with the Aquasol AG, covered with gauze and secured with tape. This will be changed daily. They will wash the area with soap and water at dressing changes. Continue to monitor for signs and symptoms of infection. Recommend using a pillow to float the heel, so there is no contact with the bed. We are happy to continue care in the [facility] at discharge from the hospital. 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
[2018-11-16] MEDS: TAMSULOSIN HCL 0.4 MG CAP.SR.24H PO SCH (17:18)
[2018-11-16] MEDS: DOXAZOSIN MESYLATE 2 MG TABLET PO SCH (20:06)
[2018-11-16] MEDS: MONTELUKAST SODIUM 10 MG TABLET PO SCH (20:06)
[2018-11-16] MEDS: FINASTERIDE 5 MG TABLET PO SCH (20:07)
[2018-11-17] MEDS: traMADol HCL 50 MG TABLET PO PRN ×2 (02:57→14:07)
[2018-11-17 05:50] LABS: Anion Gap 12.5 mmol/L (6.8-13.8); BUN/Creatinine Ratio 10.8 (9.0-21.6); Calcium * 8.6 mg/dL (7.9-10.9); Carbon Dioxide 26.9 mmol/L (24-32.6); Estimated Creat Clear 111.9; Potassium 3.4 mmol/L (3.4-4.6)
[2018-11-17] MEDS: ALBUTEROL SULFATE 2.5 MG/0.5 ML VIAL.NEB IH SCH ×4 (06:23→18:12)
[2018-11-17] MEDS: INSULIN LISPRO 100 UNITS/ML VIAL SC SCH ×4 (07:42→17:16)
[2018-11-17] MEDS: SUCRALFATE 1 G/10 ML UDC PO SCH (07:44)
[2018-11-17] MEDS: ONDANSETRON HCL 8 MG TABLET PO PRN (07:47)
[2018-11-17] MEDS ORDERED: GLUCAGON,HUMAN RECOMBINANT 1 MG VIAL IJ PRN (08:14)
--- NOTE | 2018-11-17 08:47 | PN ---
Subjective - Date and Time Seen Date: 11/17/18 Time: 08:23 Subjective Narrative: Continues to have N/V. sales cath removed yesterday . flomax and finasteride started yeserday. had urinary retention and had to be straight cath overnight x 3. no BM since admission. had low BS yesterday as he did not eat lunch due to nausea. has low back today more than neck pain. Objective - Review of Systems Generalized/Overall Review: Reports: Weakness. Denies: Chills, Fever EENTM: Denies: Blurred Vision Respiratory: Denies: Cough, Shortness of Breath, Orthopnea Cardiac: Denies: Chest Pain, Palpitations Abdominal: Reports: Nausea, Vomiting, Constipation. Denies: Abdominal Pain, Diarrhea Genitourinary Symptoms: Reports: Retention. Denies: Urgency, Frequency Musculoskeletal Complaints: Reports: Back Pain, Neck Pain Neurological: Denies: Headache Skin: Denies: Lesions Endocrine: Denies: Intolerance to Cold, Intolerance to Heat Misc: All systems neg except as marked - Vitals Vitals: Last Vital Signs Temp 36.4 C 11/17/18 06:54 Pulse 104 H 11/17/18 06:54 Resp 20 11/17/18 06:54 BP 162/85 H 11/17/18 06:54 Pulse Ox 98 11/17/18 06:54 - Abnormal Lab Findings Abnormal Lab Findings: Abnormal Lab Results 11/17/18 Range/Units 05:00 Est GFR (Non-Af Amer) 153 H D (60-130) mL/min - Exam Constitutional: Present: Alert, Oriented x3, Cooperative, Elderly ENT Exam: Present: hearing grossly normal Neck: Present: supple. Absent: lymphadenopathy (R), lymphadenopathy (L) Respiratory: Present: normal breath sounds, No rales, No wheezing Cardiovascular/Chest: Present: regular rate, rhythm, no JVD, no murmur Abdomen: Present: Normal bowel sounds, nontender, firm - slightly, distended Extremity: Present: no pedal edema, no calf tenderness Cauti Physician Documentation - Urinary Catheter Management Urethral (Sales) Date of Insertion: 11/14/18 Time of Insertion: 03:11 Date of Removal: 11/16/18 Time of Removal: 09:30 Assessment/Plan Plan Narrative: Patient admitted 3 days ago for nausea, vomiting, diarrhea, abdominal pain, with the admitting diagnosis of gastroenteritis likely infectious viral versus bacterial. He did get antibiotics by [facility] recently for ulcer in his leg . The patient has not made bowel movement since admission and we were not able to get so for any stool analysis. He was admitted initially to ICU for IV Cardene drip because of elevated blood pressure and patient could not take any of his oral medications due to his intractable nausea and vomiting. He improved clinically was transferred to the [facility] floor. He was started on clear liquids. His nausea started again and yesterday started having nausea and vo miting again and could not tolerate full liquids. He also had urinary retention/ decreased urine output from his dehydration. His indwelling Sales catheter was removed yesterday and Flomax and finasteride were started. Overnight he had urinary retention and had to be straight cath 2-3 times. He had also low blood sugar because he missed his meal due to his nausea. His Metformin has been on hold and his pre-meal insulins has been on hold as well. Will likely also decrease his basal insulin. Will get a renal ultrasound todayand repeat the urinalysis. Will bladder scan as needed and do straight Sales cath for now. Pending results will likely get a urology consult but will give more time for his Flomax and finasteride to work. Will get a LS xray as he is having more back pain today and see if this is causing his AUR. He does have a h/o of Spinal stenosis. His persistent nausea /vomiting which still likely is GIT however it could also be drug-related ( blood pressure medications) but he has been on this medications before except for the tamsulosin which was started only yesterday. It does not look like it is from [employer]ER etiology as he has no headache, no blurring of vision. It could be related to diabetic gastroparesis and will consider starting metoclopramide. We will continue with his PPI and will stop his sucralfate for now as it can form bezoar and he has small hiatal hernia. ADDENDUM: reviewing his PSHx- had [place]URP [place] [address] Reece. - Problems/Diagnosis (1) Intractable nausea and vomiting Problem: Acute (2) Urinary retention Problem: Acute (3) Abdominal pain Problem: Resolved Qualifiers: Abdominal location: epigastric Qualified Code(s): R10.13 - Epigastric pain (4) Gastroenteritis Problem: Resolved (5) Hypertension Problem: Chronic (6) CAD (coronary artery disease) Problem: Chronic Qualifiers: Coronary Disease-Associated Artery/Lesion type: [place] artery [place] vs. transplanted heart: [place] heart Associated angina: without angina Qualified Code(s): I25.10 - Atherosclerotic heart disease of [place] coronary artery without angina pectoris (7) Diabetes mellitus Problem: Chronic Qualifiers: Diabetes mellitus type: type 2 Diabetes mellitus manager terminal insulin use: with manager terminal use Diabetes mellitus complication status: with neurologic complications Diabetes mellitus complication detail: with polyneuropathy Qualified Code(s): E11.42 - Type 2 diabetes mellitus with diabetic polyneuropathy (8) Diabetic neuropathy Problem: Chronic Qualifiers: Diabetes mellitus type: type 2 Diabetes mellitus complication detail: diabetic polyneuropathy Qualified Code(s): E11.42 - Type 2 diabetes mellitus with diabetic polyneuropathy (9) Neck pain Problem: Chronic (10) Low back pain Problem: Acute Qualifiers: Chronicity: chronic Back pain laterality: unspecified Sciatica presence: unspecified whether sciatica present Qualified Code(s): M54.5 - Low back pain; G89.29 - Other chronic pain
[2018-11-17] MEDS ORDERED: SILVER SULFADIAZINE 25 APPL JAR TP SCH (09:00)
[2018-11-17] MEDS: ONDANSETRON HCL/PF 2 MG/ML VIAL IV PRN ×2 (09:14→20:20)
[2018-11-17] MEDS: PANTOPRAZOLE SODIUM 40 MG in NORMAL SALINE 100 ML IV SCH (09:38)
[2018-11-17] MEDS: POTASSIUM CHLORIDE 10 MEQ in NORMAL SALINE 1,000 ML IV SCH ×2 (09:43→20:01)
[2018-11-17] MEDS: METOPROLOL TARTRATE 50 MG TABLET PO SCH ×2 (10:00→21:26)
[2018-11-17] MEDS: amLODIPine BESYLATE 5 MG TABLET PO SCH (10:01)
[2018-11-17] MEDS: GABAPENTIN 400 MG CAPSULE PO SCH ×3 (10:01→17:17)
[2018-11-17] MEDS: CLOPIDOGREL BISULFATE 75 MG TABLET PO SCH (10:02)
[2018-11-17] MEDS: FLUTICASONE PROPION/SALMETEROL 14 PUFF DISK.W.DEV IH SCH ×2 (10:03→21:26)
[2018-11-17] MEDS: METOPROLOL TARTRATE 25 MG TABLET PO SCH (10:14)
[2018-11-17] MEDS ORDERED: METOPROLOL TARTRATE 1 MG/ML AMPUL IV ONE (10:45)
[2018-11-17] MEDS ORDERED: INSULIN GLARGINE,HUM.REC.ANLOG 100 UNITS/ML VIAL SC ONE (11:01)
[2018-11-17] MEDS: INSULIN GLARGINE,HUM.REC.ANLOG 100 UNITS/ML VIAL SC SCH (11:06)
[2018-11-17] MEDS ORDERED: METOCLOPRAMIDE HCL 5 MG/ML VIAL IV SCH (11:30)
[2018-11-17 11:43] LABS: Urine Bilirubin Negative (NEGATIVE); Urine Ketone Negative (NEGATIVE); Urine Protein Negative (NEGATIVE); Urine Urobilinogen Normal (NORMAL)
[2018-11-17] MEDS: SILVER SULFADIAZINE 50 APPL JAR TP SCH (11:48)
[2018-11-17 11:55] LABS: Urine Appearance Slightly Cloudy (CLEAR); Urine Blood 5 /ul (NEGATIVE); Urine Color Yellow; Urine Nitrite Positive (NEGATIVE)
[2018-11-17 11:56] LABS: Urine Bacteria 2+; Urine RBC 0-5 /hpf (0-5); Urine WBC None Seen /hpf (0-5)
[2018-11-17] MEDS: METOCLOPRAMIDE HCL 5 MG/ML VIAL IV SCH ×3 (12:03→20:04)
--- NOTE | 2018-11-17 16:16 | PN ---
[facility] Note - Interim Date: 11/17/18 Time: 16:15 Narrative: We did a HERLINDA for AUR- IMPRESSION: 1. 2.3 CM CYST INVOLVING THE LOWER POLE THE RIGHT KIDNEY, OTHERWISE UNREMARKABLE RIGHT KIDNEY. 2. UNREMARKABLE LEFT KIDNEY. 3. URINARY BLADDER GROSSLY NORMAL. 4. PREVOID VOLUME OF 1339 AND THE PATIENT WAS UNABLE TO VOID. UROLOGY FOLLOW-UP RECOMMENDED. 5. PROSTATE NOT VISUALIZED Reviewing his PSHx - he did [place]UR[place] [address] Reece. If he continues to have AUR- will restart indwelling sales catheter and get urology consultfor possible cystoscopy. The patient is circumsized ( no phimosis) and per patient they don't have a hard time doing straight cath on him- unlikely urethral stricture. His LS xray below is shown below but unlikely due to spinal stneosis- he does not have saddle anesthesia and has no problem with controlling his sphincters. IMPRESSION: 1. MARKED NARROWING OF THE L5/S1 DISC SPACE WITH MILD DEGENERATIVE CHANGES IN THE ENDPLATES AND MODERATE DEGENERATIVE SPURRING INVOLVING THE FACET JOINTS OF THE LOWER LUMBAR SPINE His repeat AXR for his N/V showed no bowel obstruction. IMPRESSION: 1. NONSPECIFIC BOWEL GAS PATTERN If he does not improve with reglan- consider GS consult for EGD. I will attending a conference and will be back on Thursday. Will sign out to Dr. Webber.
[2018-11-17] MEDS: TAMSULOSIN HCL 0.4 MG CAP.SR.24H PO SCH (17:17)
[2018-11-17] MEDS: FINASTERIDE 5 MG TABLET PO SCH (21:26)
[2018-11-17] MEDS: DOXAZOSIN MESYLATE 2 MG TABLET PO SCH (21:26)
[2018-11-17] MEDS: MONTELUKAST SODIUM 10 MG TABLET PO SCH (21:26)
[2018-11-18] MEDS: METOPROLOL TARTRATE 50 MG TABLET PO SCH ×3 (02:01→20:21)
[2018-11-18] MEDS ORDERED: ONDANSETRON HCL/PF 2 MG/ML VIAL IV PRN (02:05)
[2018-11-18] MEDS: traMADol HCL 50 MG TABLET PO PRN ×3 (03:24→19:21)
[2018-11-18] MEDS: HYDROmorphone HCL 1 MG/ML DISP.SYRIN IV PRN ×2 (03:34→20:47)
[2018-11-18] MEDS: POTASSIUM CHLORIDE 10 MEQ in NORMAL SALINE 1,000 ML IV SCH ×3 (04:11→21:12)
[2018-11-18] MEDS: ALBUTEROL SULFATE 2.5 MG/0.5 ML VIAL.NEB IH SCH ×5 (06:17→19:24)
[2018-11-18] MEDS: METOCLOPRAMIDE HCL 5 MG/ML VIAL IV SCH ×4 (08:00→20:20)
[2018-11-18] MEDS: FLUTICASONE PROPION/SALMETEROL 14 PUFF DISK.W.DEV IH SCH ×2 (08:29→20:17)
[2018-11-18] MEDS: GABAPENTIN 400 MG CAPSULE PO SCH ×3 (08:30→17:45)
[2018-11-18] MEDS: CLOPIDOGREL BISULFATE 75 MG TABLET PO SCH (08:32)
[2018-11-18] MEDS: amLODIPine BESYLATE 5 MG TABLET PO SCH (08:32)
[2018-11-18] MEDS: INSULIN LISPRO 100 UNITS/ML VIAL SC SCH ×4 (08:39→17:13)
[2018-11-18] MEDS ORDERED: INSULIN GLARGINE,HUM.REC.ANLOG 100 UNITS/ML VIAL SC SCH (09:00)
[2018-11-18] MEDS: PANTOPRAZOLE SODIUM 40 MG in NORMAL SALINE 100 ML IV SCH (10:54)
[2018-11-18] MEDS: SILVER SULFADIAZINE 50 APPL JAR TP SCH (10:58)
[2018-11-18] MEDS: ONDANSETRON HCL 8 MG TABLET PO PRN (11:02)
[2018-11-18] MEDS: SULFAMETHOXAZOLE/TRIMETHOPRIM 1 TAB TABLET PO SCH ×2 (11:44→20:18)
--- NOTE | 2018-11-18 11:44 | PN ---
Subjective - Date and Time Seen Date: 11/18/18 Time: 11:36 Subjective Narrative: aJke reports feeling better today. He still has low back spinal pain at times which is chronic without radiation. He has some nausea at times but denies abdominal pain. He ate his full liquid breakfast this morning without difficulty. Olsen Catheter in place, urine growing staph species this morning. He denies suprapubic pain, fever, or chills. Objective - Vitals Vitals: Last Vital Signs Temp 36.8 C 11/18/18 10:44 Pulse 76 11/18/18 10:44 Resp 12 11/18/18 10:44 BP 161/92 H 11/18/18 10:44 Pulse Ox 99 11/18/18 10:44 - Abnormal Lab Findings Abnormal Lab Findings: Abnormal Lab Results 11/17/18 Range/Units 11:38 Urine Glucose (UA) 100 H (NEGATIVE) mg/dL Urine Blood 5 H (NEGATIVE) /ul Urine Nitrate Positive H (NEGATIVE) Urine Bacteria 2+ H (NONE) Urine Comment Culture ordered L - Exam Constitutional: Present: Alert, Oriented x3, Cooperative ENT Exam: Present: hearing grossly normal Respiratory: Present: lungs clear, normal breath sounds Cardiovascular/Chest: Present: regular rate, rhythm, no murmur Abdomen: Present: Normal bowel sounds, soft, nontender, nondistended Skin Exam: Present: normal color, warm/dry, no cyanosis Appearance: Present: appropriate appearance, appropriate insight Eye contact: Present: cooperative, good eye contact, normal speech Cauti Physician Documentation - Urinary Catheter Management Urethral (Olsen) Urethral Indwelling: Yes Reason for Continuing Indwelling Catheter: Acute urinary retention Date of Insertion: 11/17/18 Time of Insertion: 17:50 Date of Removal: 11/16/18 Time of Removal: 09:30 Assessment/Plan Plan Narrative: Jake is feeling better today. His nausea persists but is improved and he tolerated breakfast this morning without vomiting. Continue full liquid diet. Will monitor blood sugars as his insulin was reduced with his poor appetite. May need to increase insulin as needed if he continues to eat better. Staph growing on urine culture. Starting bactrim DS BID, awaiting sensitivities. Will consult Urology (Dr. Chavez) for urinary retention. Will leave catheter in for now and remove in AM prior to being evaluated by Urology. Blood pressure elevated likely due to not taking medication due to nausea and illness. He took this mornings medications and blood pressure has trended down a little. Will continue to monitor blood pressure and adjust if needed. - Problems/Diagnosis (1) Urinary retention Problem: Acute (2) Intractable nausea and vomiting Problem: Acute Qualifiers: Vomiting type: unspecified Qualified Code(s): R11.2 - Nausea with vomiting, unspecified (3) Insulin dependent type 2 diabetes mellitus Problem: Acute (4) Hypertension Problem: Chronic Qualifiers: Hypertension type: essential hypertension Qualified Code(s): I10 - Essential (primary) hypertension
[2018-11-18] MEDS: TAMSULOSIN HCL 0.4 MG CAP.SR.24H PO SCH (17:46)
[2018-11-18] MEDS: MONTELUKAST SODIUM 10 MG TABLET PO SCH (20:19)
[2018-11-18] MEDS: DOXAZOSIN MESYLATE 2 MG TABLET PO SCH (20:21)
[2018-11-18] MEDS: FINASTERIDE 5 MG TABLET PO SCH (20:22)
[2018-11-18] MEDS: SENNOSIDES/DOCUSATE SODIUM 1 TAB TABLET PO SCH (20:23)
[2018-11-19] MEDS: POTASSIUM CHLORIDE 10 MEQ in NORMAL SALINE 1,000 ML IV SCH ×2 (05:24→14:54)
[2018-11-19] MEDS: ALBUTEROL SULFATE 2.5 MG/0.5 ML VIAL.NEB IH SCH ×4 (06:01→20:40)
[2018-11-19] MEDS: METOCLOPRAMIDE HCL 5 MG/ML VIAL IV SCH ×4 (06:48→20:35)
--- NOTE | 2018-11-19 08:18 | CONS ---
[facility] - General Date of Service: 11/19/18 Narrative: 77 yo male admitted several days ago with failure to thrive and host of medical problems. I am consulted for urinary retention. All history is from the chart. Patient has no insight into his past history. He is verbal but has no recollection about his history. He has reported TURP in the past but unclear how long ago. He had retention of >1 L and catheter was placed. Unable to void and a new catheter was inserted draining out 1.5L. Urine is growing staph epi. He had a HERLINDA done on 11/17/18 which I reviewed. Kidneys are normal except for simple cysts. No hydro. Bladder was distended at 1300 mL and trabeculated. Unable to void. Source: RN/MD - History of Present Illness Allergies/Adverse Reactions: Allergies lisinopril Allergy (Mild, Verified 11/14/18 04:51) Hives, "FEELS SICK" tamsulosin HCl [From Flomax] Adverse Reaction (Mild, Verified 11/14/18 04:51) "FEELS SICK" Home Medications: Home Medications Medication Instructions Recorded Last Taken Blood-Glucose Meter [Freestyle 1 ea MC ACHS 12/24/11 06/14/18 Lite Meter] Nitroglycerin [Nitrostat 0.4 MG] 1 tab SL Q5MX3 PRN 12/24/11 Unknown Aspirin [Aspirin Enteric Coated] 325 mg PO DAILY 01/29/16 06/16/18 albuterol sulfate 2.5 mg/3 mL 2.5 mg IH QID #180 ml 11/30/17 06/01/18 (0.083 %) solution for nebulization metoprolol tartrate 25 mg tablet 25 mg PO BID #180 tab 01/29/18 06/17/18 clopidogrel 75 mg tablet 75 mg PO DAILY #90 tab 03/25/18 06/16/18 gabapentin 400 mg capsule 400 mg PO TID 90 Days #270 cap 03/25/18 06/16/18 Amlodipine Besylate 5 mg PO DAILY 06/01/18 06/16/18 Atorvastatin Calcium [Lipitor] 20 mg PO DAILY 06/01/18 06/16/18 Glucagon HCl 1 mg IJ PRN PRN 06/01/18 Unknown Syringe-Needle,Insulin,0.5 ml 0 ea .ROUTE .MEDSUPPLY 06/01/18 06/14/18 [Litetouch Insulin Syringe] albuterol sulfate HFA 90 2 puff IH QID PRN #18 g 06/01/18 06/01/18 mcg/actuation aerosol inhaler metFORMIN HCL [Glucophage] 1,000 mg PO BID 06/01/18 06/16/18 BD Ultra-Fine Mini Pen Needle 31 See Dose Instructions .ROUTE 06/30/18 Unknown gauge x 3/16" .MEDSUPPLY #100 ea NS insulin aspart U-100 100 unit/mL See Rx Instructions .ROUTE 06/30/18 Unknown subcutaneous solution .COMPLEX #30 ml silver sulfadiazine 1 % topical 1 applic TP DAILY #50 g 07/22/18 Unknown cream Fluticasone Propion/Salmeterol 1 puff INHALATION BID 08/30/18 Unknown [Advair 250-50 Diskus] Montelukast Sodium [Singulair] 10 mg PO HS 08/30/18 Unknown Sulfamethoxazole/Trimethoprim 1 tab PO BID #20 tab 11/05/18 Unknown [Bactrim Ds] insulin glargine (U-100) 100 43 unit SUBCUT .AM #15 ml 11/08/18 Unknown unit/mL (3 mL) subcutaneous pen Procedures Biopsy of mouth, unspecified structure (07/15/11) Circumcision (06/30/05) Colonoscopy (07/15/11) Esophagogastroduodenoscopy [EGD] with closed biopsy (07/15/11) Injection of anesthetic into spinal canal for analgesia (11/24/12) Injection of other agent into spinal canal (11/24/12) Injection of steroid (11/24/12) Introduction of Anti-inflammatory into Epidural Space, Percutaneous Approach (02/06/16) Introduction of Local Anesthetic into Epidural Space, Percutaneous Approach (02/06/16) Laparoscopic cholecystectomy (12/26/11) Other diagnostic procedures on lymphatic structures (07/15/11) Other transurethral prostatectomy (04/28/05) Replacement of Left Lens with Synthetic Substitute, Percutaneous Approach (01/05/17) Replacement of Right Lens with Synthetic Substitute, Percutaneous Approach (10/13/16) Retrograde pyelogram (04/28/05) Transfusion of packed cells (04/28/05) Medications - Medications Current Medications: Current Medications Albuterol Sulfate (Albuterol Sulfate 2.5 Mg/0.5ml) 2.5 mg IH QIDRT [facility] Stop: 12/14/18 11:01 Last Admin: 11/19/18 06:01 Dose: 2.5 mg Documented by: Amlodipine Besylate (Norvasc) 5 mg PO DAILY [facility] Stop: 12/15/18 09:01 Last Admin: 11/18/18 08:32 Dose: 5 mg Documented by: Clopidogrel Bisulfate (Plavix) 75 mg PO DAILY [facility] Stop: 12/15/18 09:01 Last Admin: 11/18/18 08:32 Dose: 75 mg Documented by: Doxazosin Mesylate (Cardura) 2 mg PO HS [facility] Stop: 12/14/18 21:01 Last Admin: 11/18/18 20:21 Dose: 2 mg Documented by: Finasteride (Proscar) 5 mg PO [facility] Stop: 12/16/18 21:01 Last Admin: 11/18/18 20:22 Dose: 5 mg Documented by: Gabapentin (Neurontin) 400 mg PO TID [facility] Stop: 12/14/18 13:01 Last Admin: 11/18/18 17:45 Dose: 400 mg Documented by: Glucagon (Glucagen) 1 mg IJ PRN PRN PRN Reason: symptomatic hypoglycemia Last Admin: 11/18/18 17:16 Dose: 1 mg Documented by: Hydromorphone HCl (Dilaudid) 1 mg IV Q6H PRN PRN Reason: Severe Pain (pain scale 7-10) Stop: 12/17/18 15:16 Last Admin: 11/18/18 20:47 Dose: 1 mg Documented by: Pantoprazole Sodium 40 mg/ (Sodium Chloride) 100 mls @ 400 mls/hr IV Q24H [facility] Stop: 12/14/18 10:16 Last Infusion: 11/18/18 11:09 Dose: Infused Documented by: Potassium Chloride 10 meq/ (Sodium Chloride) 1,005 mls @ 125 mls/hr IV .Q8H3M [facility] Stop: 12/17/18 08:46 Last Admin: 11/19/18 05:24 Dose: 125 mls/hr Documented by: Metoclopramide HCl (Reglan) 5 mg IV ACHS [facility] Stop: 12/17/18 11:46 Last Admin: 11/19/18 06:48 Dose: 5 mg Documented by: Metoprolol Tartrate (Lopressor) 50 mg PO BID [facility] Stop: 12/17/18 09:01 Last Admin: 11/18/18 20:21 Dose: 50 mg Documented by: Montelukast Sodium (Singulair) 10 mg PO HS [facility] Stop: 12/14/18 21:01 Last Admin: 11/18/18 20:19 Dose: 10 mg Documented by: Ondansetron HCl (Zofran) 8 mg PO Q6H PRN PRN Reason: Nausea And Vomiting Stop: 12/14/18 09:58 Last Admin: 11/18/18 11:02 Dose: 8 mg Documented by: Ondansetron HCl (Zofran) 8 mg IV Q6H PRN PRN Reason: Nausea And Vomiting Stop: 12/17/18 08:44 Last Admin: 11/18/18 03:17 Dose: 8 mg Documented by: Fluticasone/Salmeterol (Advair 250-50 Diskus) 1 puff IH BID [facility] Stop: 12/14/18 21:01 Last Admin: 11/18/18 20:17 Dose: 1 puff Documented by: Senna/Docusate Sodium (Senokot-S) 2 tab PO [facility] Stop: 12/18/18 21:01 Last Admin: 11/18/18 20:23 Dose: 2 tab Documented by: Silver Sulfadiazine (Silvadene) 1 appl TP DAILY [facility] Stop: 12/17/18 09:01 Last Admin: 11/18/18 10:58 Dose: 1 appl Documented by: Tamsulosin HCl (Flomax) 0.4 mg PO DAILY@1800 [facility] Stop: 12/16/18 18:01 Last Admin: 11/18/18 17:46 Dose: 0.4 mg Documented by: Tramadol HCl (Ultram) 50 mg PO Q6H PRN PRN Reason: Pain Stop: 12/15/18 08:34 Last Admin: 11/18/18 19:21 Dose: 50 mg Documented by: Trimethoprim/Sulfamethoxazole (Bactrim Ds) 1 tab PO BID [facility]; Protocol Stop: 12/18/18 11:31 Last Admin: 11/18/18 20:18 Dose: 1 tab Documented by: Review of Systems - Review of Systems Narrative: Unable to obtain ROS secondary to patient condition Physical Examination - Exam Vital Signs: Vital Signs - Last Taken Temp 100.4 F 11/19/18 06:35 Pulse 94 11/19/18 06:35 Resp 14 11/19/18 06:35 BP 142/77 11/19/18 06:35 Pulse Ox 94 11/19/18 06:35 O2 Oxygen Delivery Method Room Air Constitutional: Present: No distress, Looks Older than stated age ENT Exam: Present: hearing grossly normal Respiratory: Present: chest non-tender, lungs clear Cardiovascular/Chest: Present: normal peripheral pulses Abdomen: Present: soft, nontender, nondistended /Rectal: Present: Exam deferred Extremity: Present: normal range of motion Skin Exam: Present: normal color, warm/dry Lymphatic: Present: no adenopathy Appearance: Present: disheveled Eye contact: Present: good eye contact Thoughts: Present: incoherent - Results and Findings: Narrative: Urinary retention: likely secondary to patient overall condition. Can do cystoscopy as outpatient to assess channel but very unlikely to benefit from repeat TURP. Catheter has gone in well. Will likely need long-term bladder drainage. Not a candidate for self cath. Options would include nursing catheterization 4x per day vs indwelling catheter. Intermittent catheterization would be preferred but not sure if patient would tolerate or home situation would allow. I would not treat staph epi at this time. If has signs of sepsis would treat. Lab/Microbiology results last 24 hrs: Abnormal/Pending Laboratory Last 24 HRS 11/18/18 17:19 Random Glucose 31 L D Culture 11/17/18 11:38 Urine Culture - Final Urine,Catheterized Staphylococcus Epidermidis
[2018-11-19] MEDS: amLODIPine BESYLATE 5 MG TABLET PO SCH (09:39)
[2018-11-19] MEDS: SILVER SULFADIAZINE 50 APPL JAR TP SCH (09:39)
[2018-11-19] MEDS: PANTOPRAZOLE SODIUM 40 MG TABLET.EC PO SCH (09:39)
[2018-11-19] MEDS: FLUTICASONE PROPION/SALMETEROL 14 PUFF DISK.W.DEV IH SCH ×2 (09:39→20:29)
[2018-11-19] MEDS: CLOPIDOGREL BISULFATE 75 MG TABLET PO SCH (09:39)
[2018-11-19] MEDS: GABAPENTIN 400 MG CAPSULE PO SCH ×3 (09:39→17:07)
[2018-11-19] MEDS: METOPROLOL TARTRATE 50 MG TABLET PO SCH ×2 (09:42→20:34)
[2018-11-19] MEDS: SULFAMETHOXAZOLE/TRIMETHOPRIM 1 TAB TABLET PO SCH (09:49)
--- NOTE | 2018-11-19 10:20 | DS ---
(1) Intractable nausea and vomiting Problem: Acute Qualifiers: Vomiting type: unspecified Qualified Code(s): R11.2 - Nausea with vomiting, unspecified (2) Gastroenteritis Problem: Resolved (3) Urinary retention Problem: Acute (4) Diabetic gastroparesis Problem: Acute (5) Insulin dependent type 2 diabetes mellitus Problem: Acute (6) Hypertension Problem: Chronic Qualifiers: Hypertension type: essential hypertension Qualified Code(s): I10 - Essential (primary) hypertension Date of Discharge:: 11/19/18 Description of Stay: Jake is a 77 yo male that was admitted for intractable nausea and vomiting secondary to suspected gastroenteritis. He was unable to take his oral blood pressure medications and his initial blood pressure in the ER was: Selected Entries 11/14/18 00:55 Blood Pressure 216/122 H He was unable to take orals due to nausea and vomiting and was therefore admitted to the SCU with IV drip medication to control blood pressure. He was treated with IV PPI and antinausea medications. Symptoms gradually improved and he was able to be weaned off a drip and placed back on oral blood pressure medications. He was transferred to a regular med/surg bed. Blood pressure gradually returned to normal. He continued to have urinary retention. A sales catheter was placed and then trialled off, but he was still unable to urinate. He was given straight caths and eventually another catheter, which was then removed after 24 hours to trial urination. He was evaluated by Urology (Dr. Chavez) and he again was unable to urinate. Urology recommend reinserting a sales and leaving it in for a couple weeks and then consider an outpatient cystoscopy. He has BPH and is on finasteride. He has intolerance to flomax. He has had a TURP in the past. He may need a chronic sales as he may not be a candidate for another TURP. The gastroenteritis gradually improved. He is no longer having diarrhea and has no more emesis. His nausea is significantly improved. There was consideration for possible gastroparesis and he was started on reglan which has seemed to help. He currently feels well, although still unable to urinate. He did have a urine culture positive for staph epidermidis, but without symptoms of infection it is not recommended to treat this with antibiotics as it is asymptomatic bactiuria. He is weak from his illness and needs strengthening. He is medically stable and will be discharged to [facility] for SNF with PT and OT. He will have outpatient follow up in two weeks with Dr. Chavez and will maintain a sales catheter until that time. Blood pressure is now controlled, will continue current oral medications. Procedures Performed: none Results and Findings: Lab Pending Results 11/14/18 01:22: WBC 9.1, RBC 5.06, Hgb 14.9, Hct 41.3 L, MCV 81.6, MCH 29.4, MCHC 36.1 H, RDW 12.7, Plt Count 179, MPV 12.2 H, Immature Gran % (Auto) 0.20, Immature Gran # (Auto) 0.02, Neutrophils % 76.2 H, Lymphocytes % 13.3 L, Monocytes % 8.5, Eosinophils % 1.0, Basophils % 0.8, Nucleated RBC % 0.0, Neutrophils # 6.9 H, Lymphocytes # 1.21 L, Monocytes # 0.8, Eosinophils # 0.1, Absolute Basophils 0.1 11/14/18 01:22: Sodium 137, Plasma Sodium 140, Potassium 3.4, Chloride 101, Carbon Dioxide 24.6, Anion Gap 14.8 H, BUN 17, Creatinine 0.93, Est GFR (Non-Af Amer) 101, BUN/Creatinine Ratio 18.3, Random Glucose 291 H, Calcium 9.5, Calcium Adj for Albumin 9.3, Total Bilirubin 0.9, AST 12, ALT 8 L, Alkaline Phosphatase 90, Troponin I Less than 0.017, Total Protein 7.5, Albumin 3.8, Amylase 33, Lipase 27 L 11/14/18 03:02: Urine Color Yellow, Urine Appearance Clear, Urine pH 7.5, Ur Specific [place] 1.010, Urine Protein Negative, Urine Glucose (UA) >=1000 H, Urine Ketones 15, Urine Blood Negative, Urine Nitrate Negative, Urine Bilirubin Negative, Urine Urobilinogen Normal, Ur Leukocyte Esterase Negative, Urine RBC None seen, Urine WBC None seen, Ur Epithelial Cells None seen, Urine Bacteria None seen, Urine Culture Comments No culture indicated 11/15/18 05:30: WBC 7.4, RBC 4.27 L, Hgb 12.5 L, Hct 36.0 L, MCV 84.3, MCH 29.3, MCHC 34.7, RDW 13.0, Plt Count 175, MPV 12.0 H, Immature Gran % (Auto) 0.30, Immature Gran # (Auto) 0.02, Neutrophils % 68.0, Lymphocytes % 17.6 L, Monocytes % 11.5 H, Eosinophils % 2.3, Basophils % 0.3, Nucleated RBC % 0.0, Neutrophils # 5.0, Lymphocytes # 1.30 L, Monocytes # 0.9, Eosinophils # 0.2, Absolute Basophils 0.0 11/15/18 05:30: Sodium 138, Plasma Sodium 138, Potassium 3.3 L, Chloride 103, Carbon Dioxide 27.2, Anion Gap 11.1, BUN 17, Creatinine 0.81, Est GFR (Non-Af Amer) 119, BUN/Creatinine Ratio 21.0, Random Glucose 116 H D, Calcium 8.0, Calcium Adj for Albumin 8.5, Total Bilirubin 0.8, AST 14, ALT 6 L, Alkaline Phosphatase 67, Total Protein 6.0 L, Albumin 3.0 L 11/15/18 05:30: Mean Blood Glucose 177, Hemoglobin A1c 7.9 H 11/17/18 05:00: Sodium 136, Plasma Sodium 136, Potassium 3.4, Chloride 100, Carbon Dioxide 26.9, Anion Gap 12.5, BUN 7 D, Creatinine 0.65, Est GFR (Non-Af Amer) 153 H D, BUN/Creatinine Ratio 10.8, Random Glucose 78 D, Calcium 8.6 11/17/18 11:38: Urine Color Yellow, Urine Appearance Slightly cloudy, Urine pH 7.0, Ur Specific [place] 1.010, Urine Protein Negative, Urine Glucose (UA) 100 H, Urine Ketones Negative, Urine Blood 5 H, Urine Nitrate Positive H, Urine Bilirubin Negative, Urine Urobilinogen Normal, Ur Leukocyte Esterase Negative, Urine RBC 0-5, Urine WBC None seen, Ur Epithelial Cells 0-5, Urine Bacteria 2+ H, Urine Comment Culture ordered L 11/18/18 17:19: Random Glucose 31 L D Discharge Location: [facility] Disposition: SNF Condition: Stable Level of Care: SNF Discharge Activity: Activity as tolerated Discharge Diet: Consistent carbs - Mechanical soft diet and a chocolate glucerna in the evening [facility] Therapy: Physical Therapy, Speech Therapy Referrals: Steven Martinez MD [Primary Care Provider] - [facility] - Two Weeks Problem Oriented Discharge Instructions to Patient/Family: Viral Gastroenteritis, Adult, [id number], Gastroparesis, Acute Urinary Retention, Male, [id number] Additional Patient Instructions (free text): -Please make TCM appointment unless longterm discharge, or if following up with outside provider. Thank you! Iesha @ [phone] or Karla at [phone]. Continue catheter until follow up with Urology, may need lifelong. Prescriptions (Any new or edited meds): Insulin Glargine,Hum.rec.anlog [Basaglar Kwikpen U-100] 20 unit SUBCUT .AM #15 ml Doxazosin Mesylate [Cardura] 2 mg PO HS #30 tab Metoprolol Tartrate [Lopressor] 50 mg PO BID #60 tab Finasteride [Proscar] 5 mg PO HS #30 tab Pantoprazole Sodium [Protonix] 40 mg PO DAILY #30 tablet. Metoclopramide HCl [Reglan] 5 mg PO ACHS #28 tab Sennosides/Docusate Sodium [Senokot-S] 2 tab PO HS PRN #60 tab PRN Reason: Constipation Ondansetron HCl [Zofran] 8 mg PO Q6H PRN #30 tab PRN Reason: Nausea And Vomiting Complete Home Medications List: Complete Home Medication List: Blood-Glucose Meter [Freestyle Lite Meter] 1 ea MC ACHS 12/24/11 Nitroglycerin [Nitrostat] 1 tab SL Q5MX3 PRN 12/24/11 Aspirin [Aspirin Enteric Coated] 325 mg PO DAILY 01/29/16 albuterol sulfate 2.5 mg/3 mL (0.083 %) solution for nebulization 2.5 mg IH QID #180 ml 11/30/17 clopidogrel 75 mg tablet 75 mg PO DAILY #90 tab 03/25/18 gabapentin 400 mg capsule 400 mg PO TID 90 Days #270 cap 03/25/18 Amlodipine Besylate 5 mg PO DAILY 06/01/18 Atorvastatin Calcium [Lipitor] 20 mg PO DAILY 06/01/18 Glucagon HCl 1 mg IJ PRN PRN 06/01/18 Syringe-Needle,Insulin,0.5 ml [Litetouch Insulin Syringe] 0 ea .ROUTE .MEDSUPPLY 06/01/18 albuterol sulfate HFA 90 mcg/actuation aerosol inhaler 2 puff IH QID PRN #18 g 06/01/18 metFORMIN HCL [Glucophage] 1,000 mg PO BID 06/01/18 BD Ultra-Fine Mini Pen Needle 31 gauge x 05/08" See Dose Instructions .ROUTE .MEDSUPPLY #100 ea NS 06/30/18 silver sulfadiazine 1 % topical cream 1 applic TP DAILY #50 g 07/22/18 Fluticasone Propion/Salmeterol [Advair 250-50 Diskus] 1 puff INHALATION BID 08/30/18 Montelukast Sodium [Singulair] 10 mg PO HS 08/30/18 Doxazosin Mesylate [Cardura] 2 mg PO HS #30 tab 11/19/18 Finasteride [Proscar] 5 mg PO HS #30 tab 11/19/18 Insulin Glargine,Hum.rec.anlog [Basaglar Kwikpen U-100] 20 unit SUBCUT .AM #15 ml 11/19/18 Metoclopramide HCl [Reglan] 5 mg PO ACHS #28 tab 11/19/18 Metoprolol Tartrate [Lopressor] 50 mg PO BID #60 tab 11/19/18 Ondansetron HCl [Zofran] 8 mg PO Q6H PRN #30 tab 11/19/18 Pantoprazole Sodium [Protonix] 40 mg PO DAILY #30 tablet. 11/19/18 Sennosides/Docusate Sodium [Senokot-S] 2 tab PO HS PRN #60 tab 11/19/18
[2018-11-19] MEDS: traMADol HCL 50 MG TABLET PO PRN (11:28)
[2018-11-19 14:10] LABS: Hematocrit 32.2 % (42.0-52.0); Hemoglobin 11.5 gm/dL (13.5-18.0); Mean Cell Volume 81.3 fl (78-100); Mean Corpuscular Hgb Conc 35.7 g/dl (32-36); Mean Platelet Volume 10.6 fl (8-11.3); Neutrophil # 9.6 K/mm3 (1.3-6.0); Neutrophil % 76.5 % (42-75.0); Platelet Count 200 K/mm3 (150-450); Red Blood Count 3.96 M/mm3 (4.7-6.0); Red Cell Distribution Width 12.8 % (11.5-14.0); White Blood Count 12.5 K/mm3 (4.0-10.5)
[2018-11-19 14:24] LABS: Albumin * 2.7 gm/dl (3.4-5.0); Anion Gap 10.7 mmol/L (6.8-13.8); BUN/Creatinine Ratio 17.1 (9.0-21.6); Bilirubin, Total 0.7 mg/dL (0.0-1.1); Ca. Corrected For Albumin 8.9 mg/dL (8.4-10.2); Calcium * 8.2 mg/dL (7.9-10.9); Carbon Dioxide 23.8 mmol/L (24-32.6); Potassium 4.5 mmol/L (3.4-4.6); Total Protein 5.6 gm/dL (6.2-8.2)
[2018-11-19] MEDS ORDERED: NORMAL SALINE 1,000 ML IV ONE (15:03)
[2018-11-19] MEDS: TAMSULOSIN HCL 0.4 MG CAP.SR.24H PO SCH (17:07)
[2018-11-19] MEDS: DOXAZOSIN MESYLATE 2 MG TABLET PO SCH (20:33)
[2018-11-19] MEDS: FINASTERIDE 5 MG TABLET PO SCH (20:34)
[2018-11-19] MEDS: SENNOSIDES/DOCUSATE SODIUM 1 TAB TABLET PO SCH (20:35)
[2018-11-19] MEDS: MONTELUKAST SODIUM 10 MG TABLET PO SCH (20:35)
[2018-11-20 05:56] LABS: Anion Gap 11.8 mmol/L (6.8-13.8); BUN/Creatinine Ratio 14.7 (9.0-21.6); Calcium * 7.9 mg/dL (7.9-10.9); Carbon Dioxide 24.3 mmol/L (24-32.6); Potassium 4.1 mmol/L (3.4-4.6)
[2018-11-20] MEDS: ALBUTEROL SULFATE 2.5 MG/0.5 ML VIAL.NEB IH SCH (06:07)
[2018-11-20] MEDS: traMADol HCL 50 MG TABLET PO PRN (07:29)
[2018-11-20] MEDS: METOCLOPRAMIDE HCL 5 MG/ML VIAL IV SCH ×4 (07:35→20:13)
[2018-11-20] MEDS: FLUTICASONE PROPION/SALMETEROL 14 PUFF DISK.W.DEV IH SCH ×2 (08:20→20:06)
[2018-11-20] MEDS: CLOPIDOGREL BISULFATE 75 MG TABLET PO SCH (08:20)
[2018-11-20] MEDS: METOPROLOL TARTRATE 50 MG TABLET PO SCH ×2 (08:21→20:13)
[2018-11-20] MEDS: amLODIPine BESYLATE 5 MG TABLET PO SCH (08:21)
[2018-11-20] MEDS: GABAPENTIN 400 MG CAPSULE PO SCH ×3 (08:21→17:42)
[2018-11-20] MEDS: PANTOPRAZOLE SODIUM 40 MG TABLET.EC PO SCH (08:21)
[2018-11-20] MEDS ORDERED: BISACODYL 10 MG SUPP.RECT RC PRN (09:34)
[2018-11-20] MEDS ORDERED: ALBUTEROL SULFATE 2.5 MG/0.5 ML VIAL.NEB IH PRN (09:37)
--- NOTE | 2018-11-20 09:41 | PN ---
Subjective - Date and Time Seen Date: 11/20/18 Time: 09:37 Subjective Narrative: Patient was due to discharge yesterday, but his family expressed concerns about leaving the hospital. On my exam, he reported not having a BM since prior to admission, and was having some abdominal pain. He denied nausea. Has not been walking. He feels like he might have some swelling of his hands and feet. The tramadol is helping his neck and back pain. This afternoon, his nurse reported an episode witnessed by family where his eyes rolled back, his head was shaking, and he was unable to recognize his or niece. This lasted about 15 seconds. His is reportedly concerned he may have had a stroke a few days ago. Objective - Review of Systems Generalized/Overall Review: Reports: Weakness Respiratory: Denies: Cough, Shortness of Breath Cardiac: Reports: Chest Pain, Edema Abdominal: Reports: Constipation. Denies: Nausea Genitourinary Symptoms: Reports: Other - catheter placed yesterday Musculoskeletal Complaints: Reports: Back Pain Neurological: Reports: Weakness Skin: Reports: Other - heel ulcer - Vitals Vitals: Last Vital Signs Temp 37.2 C 11/20/18 06:51 Pulse 91 11/20/18 08:21 Resp 16 11/20/18 06:51 BP 176/87 H 11/20/18 08:21 Pulse Ox 96 11/20/18 06:51 - Abnormal Lab Findings Abnormal Lab Findings: Abnormal Lab Results 11/19/18 11/19/18 11/20/18 Range/Units 14:04 14:04 05:40 WBC 12.5 H (4.0-10.5) K/mm3 RBC 3.96 L (4.7-6.0) M/mm3 Hgb 11.5 L (13.5-18.0) gm/dL Hct 32.2 L (42.0-52.0) % Immature Gran % (Auto) 0.50 H (0.001-0.429) % Immature Gran # (Auto) 0.06 H (0.000-0.0310) K/mm3 Neutrophils % 76.5 H (42-75.0) % Lymphocytes % 10.7 L (20-51) % Monocytes % 9.4 H (0.0-9) % Neutrophils # 9.6 H (1.3-6.0) K/mm3 Lymphocytes # 1.34 L (1.5-3.5) k/mm3 Monocytes # 1.2 H (0.0-1.0) k/mm3 Sodium 125 L 125 L (132-142) mmol/L Plasma Sodium 126 L 126 L (130-142) mmol/L Chloride 95 L 93 L (97-106) mmol/L Carbon Dioxide 23.8 L (24-32.6) mmol/L Est GFR (Non-Af Amer) 145 H (60-130) mL/min Random Glucose 175 H D 151 H (70-110) mg/dL ALT 6 L (19-67) U/L Total Protein 5.6 L (6.2-8.2) gm/dL Albumin 2.7 L (3.4-5.0) gm/dl - Exam Constitutional: Present: Alert, Cooperative, No distress Respiratory: Present: lungs clear, normal breath sounds, no respiratory distress Cardiovascular/Chest: Present: regular rate, rhythm Abdomen: Present: tender - diffuse Extremity: Absent: lower extremity edema, swelling Neurologic: Present: normal mood/affect Cauti Physician Documentation - Urinary Catheter Management Urethral (Sales) Urethral Indwelling: Yes Date of Insertion: 11/19/18 Time of Insertion: 09:36 Date of Removal: 11/19/18 Time of Removal: 06:54 Assessment/Plan - Problems/Diagnosis (1) Hyponatremia Problem: Acute Narrative: Acute. His sodium was normal two days prior. His glucose is not high enough for this to be pseudohyponatremia. His acute confusion could be due to the hyponatremia. If he stays symptomatic, may administer 3% hypertonic saline, since NS did not change his sodium level. Urinary retention is also a possible source, however his sales was placed yesterday. If his sodium level is still decreased on this afternoon's labs, will check urine osmolality. (2) Confusion Problem: Acute Narrative: Family reports sudden onset confusion, head shaking. Will obtain CBC, troponin, procalcitonin, CMP, EKG, CT head. His most recent vital signs are within normal limits. He's been hyponatremic since yesterday, with a sodium level of 125. His is acutely worried about him having a stroke, but has no focal deficits. He was to go to a nursing facility yesterday, but family declined. He was given 1L NS, but with him not ambulating, he is at risk for developing edema. (3) Urinary retention Problem: Acute Narrative: Urology was consulted, and sales placed. It was recommended to keep the sales for now. See urology note. Urine culture grew staph epidermidis, but this is not a common pathogen, and antibiotics not indicated unless he is septic. (4) Hypertension Problem: Chronic Qualifiers: Hypertension type: essential hypertension Qualified Code(s): I10 - Essential (primary) hypertension (5) Abdominal pain Problem: Chronic Qualifiers: Abdominal location: epigastric Qualified Code(s): R10.13 - Epigastric pain Narrative: Continue care recommended from his wound consult. (6) Constipation Problem: Acute Narrative: He reports not having a BM since prior to admission, which was almost a week ago. No BMs have been documented. miralax and dulcolax have been added to the previously prescribed senna. Likely source of his abdominal pain. (7) Diabetic foot ulcers Problem: Acute (8) Low back pain Problem: Acute Qualifiers: Chronicity: chronic Back pain laterality: unspecified Sciatica presence: unspecified whether sciatica present Qualified Code(s): M54.5 - Low back pain; G89.29 - Other chronic pain Narrative: Chronic. Continue tramadol, as he reports this is helpful. (9) Asthma Problem: Chronic Narrative: He denies current pulmonary complaints. Breathing tx changed to prn per his request. (10) Neck pain Problem: Acute (11) BPH (benign prostatic hyperplasia) Problem: Chronic Qualifiers: Lower urinary tract symptom presence: symptoms absent Qualified Code(s): N40.0 - Benign prostatic hyperplasia without lower urinary tract symptoms (12) COPD (chronic obstructive pulmonary disease) Problem: Chronic Qualifiers: COPD type: unspecified COPD Qualified Code(s): J44.9 - Chronic obstructive pulmonary disease, unspecified (13) Gastroesophageal reflux Problem: Chronic Qualifiers: Esophagitis presence: esophagitis presence not specified Qualified Code(s): K21.9 - Gastro-esophageal reflux disease without esophagitis (14) Diabetic gastroparesis Problem: Acute
[2018-11-20] MEDS: SILVER SULFADIAZINE 50 APPL JAR TP SCH (11:05)
[2018-11-20] MEDS: POLYETHYLENE GLYCOL 3350 17 GM PACKET PO SCH (11:06)
[2018-11-20 14:06] LABS: Hematocrit 31.7 % (42.0-52.0); Hemoglobin 11.7 gm/dL (13.5-18.0); Mean Cell Volume 80.5 fl (78-100); Mean Corpuscular Hemoglobin 29.7 pg (27-31); Mean Corpuscular Hgb Conc 36.9 g/dl (32-36); Mean Platelet Volume 10.4 fl (8-11.3); Neutrophil # 7.9 K/mm3 (1.3-6.0); Neutrophil % 74.5 % (42-75.0); Platelet Count 190 K/mm3 (150-450); Red Blood Count 3.94 M/mm3 (4.7-6.0); Red Cell Distribution Width 12.5 % (11.5-14.0); White Blood Count 10.6 K/mm3 (4.0-10.5)
[2018-11-20 14:21] LABS: Albumin * 2.8 gm/dl (3.4-5.0); Anion Gap 12.2 mmol/L (6.8-13.8); BUN/Creatinine Ratio 15.5 (9.0-21.6); Bilirubin, Total 0.8 mg/dL (0.0-1.1); Ca. Corrected For Albumin 8.8 mg/dL (8.4-10.2); Calcium * 8.2 mg/dL (7.9-10.9); Carbon Dioxide 24.2 mmol/L (24-32.6); Potassium 4.4 mmol/L (3.4-4.6); Total Protein 5.9 gm/dL (6.2-8.2)
[2018-11-20 14:23] LABS: Troponin I 0.024 ng/mL (0.00-0.10)
[2018-11-20] MEDS: SODIUM CHLORIDE 3 % 500 ML IV SCH (16:08)
[2018-11-20] MEDS: TAMSULOSIN HCL 0.4 MG CAP.SR.24H PO SCH (17:42)
[2018-11-20] MEDS: DOXAZOSIN MESYLATE 2 MG TABLET PO SCH (20:13)
[2018-11-20] MEDS: FINASTERIDE 5 MG TABLET PO SCH (20:13)
[2018-11-20] MEDS: SENNOSIDES/DOCUSATE SODIUM 1 TAB TABLET PO SCH (20:14)
[2018-11-20] MEDS: MONTELUKAST SODIUM 10 MG TABLET PO SCH (20:14)
[2018-11-21 06:36] LABS: Albumin * 2.6 gm/dl (3.4-5.0); Anion Gap 11.9 mmol/L (6.8-13.8); BUN/Creatinine Ratio 17.5 (9.0-21.6); Bilirubin, Total 0.7 mg/dL (0.0-1.1); Ca. Corrected For Albumin 8.9 mg/dL (8.4-10.2); Calcium * 8.1 mg/dL (7.9-10.9); Carbon Dioxide 23.1 mmol/L (24-32.6); Total Protein 5.6 gm/dL (6.2-8.2)
[2018-11-21] MEDS: traMADol HCL 50 MG TABLET PO PRN ×2 (06:37→15:09)
[2018-11-21] MEDS: METOCLOPRAMIDE HCL 5 MG/ML VIAL IV SCH ×2 (06:48→12:18)
[2018-11-21] MEDS: SODIUM CHLORIDE 3 % 500 ML IV SCH (09:20)
[2018-11-21] MEDS: POLYETHYLENE GLYCOL 3350 17 GM PACKET PO SCH ×2 (09:21→20:54)
[2018-11-21] MEDS: CLOPIDOGREL BISULFATE 75 MG TABLET PO SCH (09:21)
[2018-11-21] MEDS: FLUTICASONE PROPION/SALMETEROL 14 PUFF DISK.W.DEV IH SCH ×2 (09:21→20:52)
[2018-11-21] MEDS: amLODIPine BESYLATE 5 MG TABLET PO SCH (09:22)
[2018-11-21] MEDS: METOPROLOL TARTRATE 50 MG TABLET PO SCH ×2 (09:22→21:01)
[2018-11-21] MEDS: GABAPENTIN 400 MG CAPSULE PO SCH ×3 (09:22→17:47)
[2018-11-21] MEDS: PANTOPRAZOLE SODIUM 40 MG TABLET.EC PO SCH (09:24)
[2018-11-21] MEDS: SILVER SULFADIAZINE 50 APPL JAR TP SCH (11:12)
[2018-11-21] MEDS ORDERED: METOCLOPRAMIDE HCL 5 MG TABLET PO PRN (14:17)
--- NOTE | 2018-11-21 14:22 | PN ---
Subjective - Date and Time Seen Date: 11/21/18 Time: 10:00 Subjective Narrative: Patient's reports he seems to be acting more normal, and his facial and hand swelling have improved. He still has some right arm weakness. Still has not had a BM. Back pain persists. Objective - Review of Systems Generalized/Overall Review: Reports: Weakness EENTM: Denies: Throat Pain Respiratory: Reports: Cough Cardiac: Denies: Chest Pain, Edema Abdominal: Reports: Constipation. Denies: Vomiting Genitourinary Symptoms: Reports: Other - sales in place. Denies: No Symptoms Reported Musculoskeletal Complaints: Reports: Back Pain Neurological: Denies: Seizure Skin: Reports: Other - Ulcer of left heel - Vitals Vitals: Last Vital Signs Temp 36.5 C 11/21/18 10:23 Pulse 77 11/21/18 10:23 Resp 14 11/21/18 10:23 BP 124/72 11/21/18 10:23 Pulse Ox 97 11/21/18 10:23 - Abnormal Lab Findings Abnormal Lab Findings: Abnormal Lab Results 11/20/18 11/20/18 11/20/18 Range/Units 13:50 13:50 13:50 Sodium 122 L (132-142) mmol/L Plasma Sodium 124 L (130-142) mmol/L Chloride 90 L (97-106) mmol/L Carbon Dioxide (24-32.6) mmol/L Est GFR (Non-Af Amer) 138 H (60-130) mL/min Random Glucose 230 H D (70-110) mg/dL Serum Osmolality 252 L mOsm/kg ALT 11 L (19-67) U/L Total Protein 5.9 L (6.2-8.2) gm/dL Albumin 2.8 L (3.4-5.0) gm/dl Procalcitonin 2.21 H (0.05-0.50) ng/mL 11/21/18 Range/Units 06:20 Sodium 124 L (132-142) mmol/L Plasma Sodium 125 L (130-142) mmol/L Chloride 93 L (97-106) mmol/L Carbon Dioxide 23.1 L (24-32.6) mmol/L Est GFR (Non-Af Amer) 158 H (60-130) mL/min Random Glucose 176 H (70-110) mg/dL Serum Osmolality mOsm/kg ALT 8 L (19-67) U/L Total Protein 5.6 L (6.2-8.2) gm/dL Albumin 2.6 L (3.4-5.0) gm/dl Procalcitonin (0.05-0.50) ng/mL - Exam Constitutional: Present: Alert, Oriented x3, Cooperative, No distress Respiratory: Present: normal breath sounds, no respiratory distress Cardiovascular/Chest: Present: regular rate, rhythm Abdomen: Present: soft, nontender Extremity: Absent: lower extremity edema Skin Exam: Present: other - 3 cm stage III ulcer of left heel Neurologic: Present: normal mood/affect Eye contact: Present: cooperative Cauti Physician Documentation - Urinary Catheter Management Urethral (Sales) Urethral Indwelling: Yes Date of Insertion: 11/19/18 Time of Insertion: 09:36 Date of Removal: 11/19/18 Time of Removal: 06:54 Assessment/Plan - Problems/Diagnosis (1) Hyponatremia Problem: Acute Narrative: Developed 11/19 after placement of the sales. His sodium did not change after one L NS. He was symptomatic yesterday, with an episode of shaking and confusion. 3% hypertonic saline was subsequently started, but his sodium only increased from 122 to 125. Repeat pending, and will DC the 3% if his sodium improves. His serum osmolality was low, urine osmolality and urine sodium pending. (2) Confusion Problem: Resolved Narrative: Ddx includes hyponatremia, medication side effect. Reglan has been changed to prn, as it was a possible source, and his nausea has improved. His procalcitonin was elevated, so infection may have been a source. However, he has been afebrile, and his WBC was actually improved. Rocephin was started, however, due to the elevated procalcitonin. He's had a chronic ulcer of his left heel, which is a possible source. (3) Urinary retention Problem: Acute Narrative: Urology was consulted, and sales placed on 11/19. See urology notes for recommendations. (4) Hypertension Problem: Chronic Qualifiers: Hypertension type: essential hypertension Qualified Code(s): I10 - Essential (primary) hypertension (5) Abdominal pain Problem: Chronic Qualifiers: Abdominal location: epigastric Qualified Code(s): R10.13 - Epigastric pain (6) Constipation Problem: Acute Narrative: MiraLAX increased to twice daily, Dulcolax as needed, fleets enema as needed. (7) Diabetic foot ulcers Problem: Acute Narrative: He has been seeing our wound clinic for heel ulcers, left greater than right. Continue treatment per wound care consult. (8) Low back pain Problem: Chronic Qualifiers: Chronicity: chronic Back pain laterality: unspecified Sciatica presence: unspecified whether sciatica present Qualified Code(s): M54.5 - Low back pain; G89.29 - Other chronic pain Narrative: continue tramadol (9) Asthma Problem: Chronic (10) Neck pain Problem: Chronic (11) BPH (benign prostatic hyperplasia) Problem: Chronic Qualifiers: Lower urinary tract symptom presence: symptoms absent Qualified Code(s): N40.0 - Benign prostatic hyperplasia without lower urinary tract symptoms (12) COPD (chronic obstructive pulmonary disease) Problem: Chronic Qualifiers: COPD type: unspecified COPD Qualified Code(s): J44.9 - Chronic obstructive pulmonary disease, unspecified (13) Gastroesophageal reflux Problem: Chronic Qualifiers: Esophagitis presence: esophagitis presence not specified Qualified Code(s): K21.9 - Gastro-esophageal reflux disease without esophagitis (14) Diabetic gastroparesis Problem: Chronic
[2018-11-21] MEDS ORDERED: MINERAL OIL 1 ENEMA BTL RC PRN (14:58)
[2018-11-21 15:38] LABS: Anion Gap 12.5 mmol/L (6.8-13.8); BUN/Creatinine Ratio 17.1 (9.0-21.6); Calcium * 8.5 mg/dL (7.9-10.9); Carbon Dioxide 25.7 mmol/L (24-32.6); Estimated Creat Clear 103.9; Potassium 4.2 mmol/L (3.4-4.6)
[2018-11-21] MEDS: LIDOCAINE 1 PATCH ADH..PATCH TP SCH (16:39)
[2018-11-21] MEDS: TAMSULOSIN HCL 0.4 MG CAP.SR.24H PO SCH (17:47)
[2018-11-21] MEDS: REMOVE LIDOCAINE TP SCH (20:54)
[2018-11-21] MEDS: FINASTERIDE 5 MG TABLET PO SCH (20:57)
[2018-11-21] MEDS: SENNOSIDES/DOCUSATE SODIUM 1 TAB TABLET PO SCH (20:57)
[2018-11-21] MEDS: MONTELUKAST SODIUM 10 MG TABLET PO SCH (20:58)
[2018-11-21] MEDS: DOXAZOSIN MESYLATE 2 MG TABLET PO SCH (21:16)
[2018-11-22] MEDS: METOPROLOL TARTRATE 50 MG TABLET PO SCH ×3 (00:01→20:15)
[2018-11-22] MEDS: DOXAZOSIN MESYLATE 2 MG TABLET PO SCH ×2 (00:02→20:15)
[2018-11-22 06:06] LABS: Albumin * 2.7 gm/dl (3.4-5.0); Anion Gap 11.3 mmol/L (6.8-13.8); BUN/Creatinine Ratio 17.7 (9.0-21.6); Bilirubin, Total 0.8 mg/dL (0.0-1.1); Calcium * 8.3 mg/dL (7.9-10.9); Carbon Dioxide 23.7 mmol/L (24-32.6)
[2018-11-22 09:27] LABS: TSH * 1.315 uIU/mL (0.358-3.74)
--- NOTE | 2018-11-22 10:00 | PN ---
Subjective - Date and Time Seen Date: 11/22/18 Time: 09:47 Subjective Narrative: AAO x 3. No BM yet per patient. No N/V anymore . Back to diabetic diet over the weekend. Na is down to 122 , asymptomatic. Objective - Review of Systems Generalized/Overall Review: Reports: Weakness. Denies: Chills, Fever EENTM: Denies: Blurred Vision Respiratory: Denies: Cough, Shortness of Breath, Orthopnea Cardiac: Denies: Chest Pain, Edema, Palpitations Abdominal: Denies: Nausea, Vomiting, Abdominal Pain Genitourinary Symptoms: Reports: Retention. Denies: Urgency, Frequency Musculoskeletal Complaints: Reports: Joint Pain, Back Pain, Neck Pain Neurological: Denies: Headache Skin: Denies: Lesions, Rash Endocrine: Denies: Intolerance to Cold, Intolerance to Heat Misc: All systems neg except as marked - Vitals Vitals: Last Vital Signs Temp 36.7 C 11/22/18 06:00 Pulse 74 11/22/18 06:00 Resp 18 11/22/18 06:00 BP 148/78 11/22/18 06:00 Pulse Ox 95 11/22/18 06:00 - Abnormal Lab Findings Abnormal Lab Findings: Abnormal Lab Results 11/20/18 11/21/18 11/21/18 Range/Units 13:50 15:16 16:30 Sodium 127 L (132-142) mmol/L Plasma Sodium 128 L (130-142) mmol/L Chloride 93 L (97-106) mmol/L Carbon Dioxide (24-32.6) mmol/L Est GFR (Non-Af Amer) 140 H (60-130) mL/min Random Glucose 179 H (70-110) mg/dL Serum Osmolality 252 L mOsm/kg ALT (19-67) U/L Total Protein (6.2-8.2) gm/dL Albumin (3.4-5.0) gm/dl Ur Random Sodium 134 H (20-110) mmol/L 11/22/18 Range/Units 05:45 Sodium 122 L (132-142) mmol/L Plasma Sodium 123 L (130-142) mmol/L Chloride 91 L (97-106) mmol/L Carbon Dioxide 23.7 L (24-32.6) mmol/L Est GFR (Non-Af Amer) 161 H (60-130) mL/min Random Glucose 151 H (70-110) mg/dL Serum Osmolality mOsm/kg ALT 9 L (19-67) U/L Total Protein 6.0 L (6.2-8.2) gm/dL Albumin 2.7 L (3.4-5.0) gm/dl Ur Random Sodium (20-110) mmol/L - Exam Constitutional: Present: Alert, Oriented x3, Cooperative ENT Exam: Present: hearing grossly normal Neck: Present: limited range of motion. Absent: lymphadenopathy (R), lymphadeno aliyah (L) Respiratory: Present: decreased breath sounds, No rales, No wheezing Cardiovascular/Chest: Present: regular rate, rhythm, no murmur, JVD - equivocal Abdomen: Present: Normal bowel sounds, soft, nontender, nondistended Extremity: Present: no pedal edema, no calf tenderness Cauti Physician Documentation - Urinary Catheter Management Urethral (Olsen) Urethral Indwelling: Yes Date of Insertion: 11/19/18 Time of Insertion: 09:36 Date of Removal: 11/19/18 Time of Removal: 06:54 Assessment/Plan Plan Narrative: Patient was AAO x 3. Not confused this morning on my rounds. 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 will d/c his Protonix and start Pepcid. If he becomes symptomatic may need to start 3 % NaCl again. 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 urine Na is over 100. will get TSH, BNP ( equivocal JVD), and a CXR ( leukocytosis/equivocal JVD). will fluid restrict him to 1 L/day. will hold his PPI . Reglan ( metoclopramide) does not cause SIADH - chlorpropamide - diabetic medication do es. ADDENDUM: Per nurse when she reassessed patient , he was confused again with shakiness - will restart him on 3 % NaCl at 15 ml/hour and monitor Na q 2 hours x 2 and will go from there. goal is to bring it to 126-127 and continue with Fluid restriction. (2) Intractable nausea and vomiting Problem: Resolved Qualifiers: Vomiting type: unspecified Qualified Code(s): R11.2 - Nausea with vomiting, unspecified (3) Urinary retention Problem: Acute (4) Abdominal pain Problem: Resolved Qualifiers: Abdominal location: epigastric Qualified Code(s): R10.13 - Epigastric pain (5) Gastroenteritis Problem: Resolved (6) Hypertension Problem: Chronic Qualifiers: Hypertension type: essential hypertension Qualified Code(s): I10 - Essential (primary) hypertension (7) CAD (coronary artery disease) Problem: Chronic Qualifiers: Coronary Disease-Associated Artery/Lesion type: [place] artery [place] vs. 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 care home use Diabetes mellitus complication status: with neurologic complications Diabetes mellitus complication detail: with polyneuropathy Qualified Code(s): E11.42 - Type 2 diabetes mellitus with diabetic polyneuropathy (9) Diabetic neuropathy Problem: Chronic Qualifiers: Diabetes mellitus type: type 2 Diabetes mellitus complication detail: diabetic polyneuropathy Qualified Code(s): E11.42 - Type 2 diabetes mellitus with diabetic polyneuropathy (10) Neck pain Problem: Chronic (11) Low back pain Problem: Chronic Qualifiers: Chronicity: chronic Back pain laterality: unspecified Sciatica presence: unspecified whether sciatica present Qualified Code(s): M54.5 - Low back pain; G89.29 - Other chronic pain (12) Leg ulcer Problem: Acute
[2018-11-22] MEDS: FLUTICASONE PROPION/SALMETEROL 14 PUFF DISK.W.DEV IH SCH ×2 (10:04→20:22)
[2018-11-22] MEDS: SILVER SULFADIAZINE 50 APPL JAR TP SCH (10:04)
[2018-11-22] MEDS: CLOPIDOGREL BISULFATE 75 MG TABLET PO SCH (10:04)
[2018-11-22] MEDS: POLYETHYLENE GLYCOL 3350 17 GM PACKET PO SCH ×2 (10:04→20:14)
[2018-11-22] MEDS: PANTOPRAZOLE SODIUM 40 MG TABLET.EC PO SCH (10:05)
[2018-11-22] MEDS: amLODIPine BESYLATE 5 MG TABLET PO SCH (10:05)
[2018-11-22] MEDS: GABAPENTIN 400 MG CAPSULE PO SCH ×3 (10:05→17:37)
[2018-11-22] MEDS: LIDOCAINE 1 PATCH ADH..PATCH TP SCH (10:49)
[2018-11-22] MEDS: SODIUM CHLORIDE 3 % 500 ML IV SCH (12:17)
[2018-11-22] MEDS: TAMSULOSIN HCL 0.4 MG CAP.SR.24H PO SCH (17:37)
[2018-11-22] MEDS: SENNOSIDES/DOCUSATE SODIUM 1 TAB TABLET PO SCH (20:16)
[2018-11-22] MEDS: MONTELUKAST SODIUM 10 MG TABLET PO SCH (20:16)
[2018-11-22] MEDS: FINASTERIDE 5 MG TABLET PO SCH (20:16)
[2018-11-22] MEDS: REMOVE LIDOCAINE TP SCH (20:25)
[2018-11-23] MEDS: traMADol HCL 50 MG TABLET PO PRN (02:09)
[2018-11-23 05:39] LABS: Hematocrit 32.2 % (42.0-52.0); Hemoglobin 11.8 gm/dL (13.5-18.0); Mean Cell Volume 79.7 fl (78-100); Mean Corpuscular Hemoglobin 29.2 pg (27-31); Mean Corpuscular Hgb Conc 36.6 g/dl (32-36); Mean Platelet Volume 10.8 fl (8-11.3); Neutrophil # 6.8 K/mm3 (1.3-6.0); Neutrophil % 71.2 % (42-75.0); Platelet Count 232 K/mm3 (150-450); Red Blood Count 4.04 M/mm3 (4.7-6.0); Red Cell Distribution Width 12.6 % (11.5-14.0); White Blood Count 9.5 K/mm3 (4.0-10.5)
[2018-11-23 05:48] LABS: Anion Gap 9.7 mmol/L (6.8-13.8); BUN/Creatinine Ratio 17.7 (9.0-21.6); Carbon Dioxide 24.1 mmol/L (24-32.6); Estimated Creat Clear 117.4; Potassium 3.8 mmol/L (3.4-4.6)
--- NOTE | 2018-11-23 08:46 | PN ---
Subjective - Date and Time Seen Date: 11/23/18 Time: 08:25 Subjective Narrative: Patient AAO x 3. he says he is losing his mind because of the pain- neck and low back pain. he is hampered with his mobility due to these. his Na is 122. he had 3 % Nacl yesterday but his Na did not seem to advance and so I stopped it. Objective - Review of Systems Generalized/Overall Review: Reports: Weakness. Denies: Chills, Fever EENTM: Denies: Blurred Vision Respiratory: Denies: Cough, Shortness of Breath Cardiac: Denies: Chest Pain, Edema, Palpitations Abdominal: Denies: Nausea, Abdominal Pain Genitourinary Symptoms: Denies: Urgency, Frequency Musculoskeletal Complaints: Reports: Back Pain Neurological: Denies: Headache Skin: Denies: Lesions, Rash Endocrine: Denies: Intolerance to Cold, Intolerance to Heat Misc: All systems neg except as marked - Vitals Vitals: Last Vital Signs Temp 36.8 C 11/22/18 15:56 Pulse 85 11/23/18 02:00 Resp 20 11/22/18 15:56 BP 145/74 11/22/18 20:15 Pulse Ox 97 11/22/18 15:56 - Abnormal Lab Findings Abnormal Lab Findings: Abnormal Lab Results 11/22/18 11/22/18 11/22/18 Range/Units 14:16 16:20 19:45 RBC (4.7-6.0) M/mm3 Hgb (13.5-18.0) gm/dL Hct (42.0-52.0) % MCHC (32-36) g/dl Immature Gran % (Auto) (0.001-0.429) % Immature Gran # (Auto) (0.000-0.0310) K/mm3 Lymphocytes % (20-51) % Monocytes % (0.0-9) % Eosinophils % (0.0-3.0) % Neutrophils # (1.3-6.0) K/mm3 Lymphocytes # (1.5-3.5) k/mm3 Sodium 125 L 123 L 125 L (132-142) mmol/L Plasma Sodium (130-142) mmol/L Chloride (97-106) mmol/L Est GFR (Non-Af Amer) (60-130) mL/min Random Glucose (70-110) mg/dL 11/22/18 11/23/18 11/23/18 Range/Units 21:50 05:36 05:36 RBC 4.04 L (4.7-6.0) M/mm3 Hgb 11.8 L (13.5-18.0) gm/dL Hct 32.2 L (42.0-52.0) % MCHC 36.6 H (32-36) g/dl Immature Gran % (Auto) 0.70 H (0.001-0.429) % Immature Gran # (Auto) 0.07 H (0.000-0.0310) K/mm3 Lymphocytes % 14.0 L (20-51) % Monocytes % 10.3 H (0.0-9) % Eosinophils % 3.5 H (0.0-3.0) % Neutrophils # 6.8 H (1.3-6.0) K/mm3 Lymphocytes # 1.33 L (1.5-3.5) k/mm3 Sodium 123 L 122 L (132-142) mmol/L Plasma Sodium 124 L (130-142) mmol/L Chloride 92 L (97-106) mmol/L Est GFR (Non-Af Amer) 161 H (60-130) mL/min Random Glucose 207 H D (70-110) mg/dL - Exam Constitutional: Present: Alert, Oriented x3 ENT Exam: Present: hearing grossly normal Neck: Present: limited range of motion Cardiovascular/Chest: Present: regular rate, rhythm, no JVD, no murmur Abdomen: Present: Normal bowel sounds, soft, nontender Extremity: Present: no calf tenderness, pedal edema Neurologic: Present: theatrical trouper II-XII nml as tested, oriented x 3, other - subtle decreased grasp Left hand; LE Grade 4/5 Cauti Physician Documentation - Urinary Catheter Management Urethral (Olsen) Urethral Indwelling: Yes Date of Insertion: 11/19/18 Time of Insertion: 09:36 Date of Removal: 11/19/18 Time of Removal: 06:54 Assessment/Plan Plan Narrative: Jake continues to have low back pain and neck pain. He has had MRIs of his lumbosacral spine and the cervical spine. He does have spinal stenosis. He had fusion of his cervical spine in [facility] and has had OTTO injections by our anesthesia here. He was told that he was not a surgical candidate for his lumbar spinal stenosis. We will continue with pain medication and increase his gabapentin to 800 mg TID. He is on lidocaine patch and tramadol PRN. If no improvement , will start with with fentanyl patch and continue with tramadol for breakthrough pain, d/c lidocaine patch. He also continues to be hyponatremic. He has not responded to hypertonic saline infusion x 2 . His euvolemic hypotonic hyponatremia likely is due to SIADH versus reset osmostat. Reviewing his hyponatremia it started on 11/19/2018 and medications started before and at that time were Dilaudid and Protonix. Dilaudid was stopped over the weekend. His Protonix was stopped yesterday but he already received his morning dose then. We will continue with his fluid restriction and give time for Protonix to get out of his system and based on its half-life it will take about 2 days per pharmacy. Consideration for starting him on tolvaptan but we do not have it available in our hospital. We may consider adding sodium tablets or even adding loop diuretic. - Problems/Diagnosis (1) Hyponatremia Problem: Acute (2) Intractable nausea and vomiting Problem: Resolved (3) Urinary retention Problem: Acute (4) Abdominal pain Problem: Resolved Qualifiers: Abdominal location: epigastric Qualified Code(s): R10.13 - Epigastric pain (5) Gastroenteritis Problem: Resolved (6) Hypertension Problem: Chronic Qualifiers: Hypertension type: essential hypertension Qualified Code(s): I10 - Essential (primary) hypertension (7) CAD (coronary artery disease) Problem: Chronic Qualifiers: Coronary Disease-Associated Artery/Lesion type: [place] artery [place] vs. 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 use: with termite treater use Diabetes mellitus complication status: with neurologic complications Diabetes mellitus complication detail: with polyneuropathy Qualified Code(s): E11.42 - Type 2 diabetes mellitus with diabetic polyneuropathy (9) Diabetic neuropathy Problem: Chronic Qualifiers: Diabetes mellitus type: type 2 Diabetes mellitus complication detail: diabetic polyneuropathy Qualified Code(s): E11.42 - Type 2 diabetes mellitus with diabetic polyneuropathy (10) Neck pain Problem: Chronic (11) Low back pain Problem: Chronic Qualifiers: Chronicity: chronic Back pain laterality: unspecified Sciatica presence: unspecified whether sciatica present Qualified Code(s): M54.5 - Low back pain; G89.29 - Other chronic pain (12) Leg ulcer Problem: Acute
[2018-11-23] MEDS: amLODIPine BESYLATE 5 MG TABLET PO SCH (09:48)
[2018-11-23] MEDS: CLOPIDOGREL BISULFATE 75 MG TABLET PO SCH (09:49)
[2018-11-23] MEDS: METOPROLOL TARTRATE 50 MG TABLET PO SCH ×2 (09:49→21:16)
[2018-11-23] MEDS: GABAPENTIN 400 MG CAPSULE PO SCH ×3 (09:49→17:37)
[2018-11-23] MEDS: POLYETHYLENE GLYCOL 3350 17 GM PACKET PO SCH ×2 (09:50→21:16)
[2018-11-23] MEDS: FLUTICASONE PROPION/SALMETEROL 14 PUFF DISK.W.DEV IH SCH ×2 (09:50→21:16)
[2018-11-23] MEDS: LIDOCAINE 1 PATCH ADH..PATCH TP SCH (09:50)
[2018-11-23] MEDS: SILVER SULFADIAZINE 50 APPL JAR TP SCH (09:51)
[2018-11-23] MEDS: SODIUM CHLORIDE 1 GM TABLET PO SCH ×2 (12:26→17:37)
[2018-11-23] MEDS: LEVOFLOXACIN 500 MG TABLET PO SCH (12:27)
[2018-11-23] MEDS: FAMOTIDINE 20 MG TABLET PO SCH (13:18)
[2018-11-23] MEDS: SODIUM CHLORIDE 3 % 500 ML IV SCH (13:19)
[2018-11-23] MEDS: TAMSULOSIN HCL 0.4 MG CAP.SR.24H PO SCH (17:39)
[2018-11-23] MEDS: FINASTERIDE 5 MG TABLET PO SCH (21:17)
[2018-11-23] MEDS: MONTELUKAST SODIUM 10 MG TABLET PO SCH (21:17)
[2018-11-23] MEDS: DOXAZOSIN MESYLATE 2 MG TABLET PO SCH (21:17)
[2018-11-23] MEDS: SENNOSIDES/DOCUSATE SODIUM 1 TAB TABLET PO SCH (21:17)
[2018-11-23] MEDS: REMOVE LIDOCAINE TP SCH (21:22)
[2018-11-24] MEDS: traMADol HCL 50 MG TABLET PO PRN ×2 (02:23→08:29)
[2018-11-24] MEDS ORDERED: FUROSEMIDE 10 MG/ML VIAL IV ONE (08:36)
--- NOTE | 2018-11-24 08:55 | PN ---
Subjective - Date and Time Seen Date: 11/24/18 Time: 08:44 Subjective Narrative: Patient says he can hardly walk due to his pain neck and low back and not due to weakness. Na improved to 128 and today is down to 126. Objective - Review of Systems Generalized/Overall Review: Reports: Weakness - generakized. Denies: Chills EENTM: Denies: Blurred Vision Respiratory: Denies: Cough, Shortness of Breath, Orthopnea Cardiac: Denies: Chest Pain, Edema, Palpitations Abdominal: Denies: Nausea Genitourinary Symptoms: Reports: Retention. Denies: Urgency, Frequency Neurological: Denies: Headache Skin: Denies: Lesions, Rash Endocrine: Denies: Intolerance to Cold, Intolerance to Heat Misc: All systems neg except as marked - Vitals Vitals: Last Vital Signs Temp 36.0 C 11/24/18 06:53 Pulse 82 11/24/18 06:53 Resp 14 11/24/18 06:53 BP 141/75 11/24/18 06:53 Pulse Ox 97 11/24/18 06:53 - Abnormal Lab Findings Abnormal Lab Findings: Abnormal Lab Results 11/23/18 11/24/18 Range/Units 20:15 08:00 Sodium 128 L 126 L (132-142) mmol/L - Exam Constitutional: Present: Alert, Oriented x3, Cooperative ENT Exam: Present: hearing grossly normal Neck: Present: limited range of motion Respiratory: Present: normal breath sounds, No rales, No wheezing Cardiovascular/Chest: Present: regular rate, rhythm, no JVD, no murmur Abdomen: Present: Normal bowel sounds, soft, nontender, nondistended Extremity: Present: no calf tenderness, pedal edema Cauti Physician Documentation - Urinary Catheter Management Urethral (Olsen) Urethral Indwelling: Yes Date of Insertion: 11/19/18 Time of Insertion: 09:36 Date of Removal: 11/19/18 Time of Removal: 06:54 Assessment/Plan Plan Narrative: Jake Lawler is complaining of difficulty of ambulating due to pain from his neck and his low back area. Will discontinue his lidocaine patch and start him on fentanyl patch and continue with tramadol for breakthrough pain. We have increase his gabapentin to 800 mg PO TID already yesterday.. He does have a history of spinal stenosis with radiculopathy right of his cervical spine status post anterior and posterior fusion. Spinal stenosis of the lumbar spine. We will likely need to get repeat MRIs when he gets discharge and refer him for possible OTTO injections if his pain does not improve.. He was told by [facility] he was not a surgical candidate for his lumbar spine stenosis. He is hyponatremia is improving. We will give him a trial of Lasix today and continue with fluid restriction and sodium tablets. Possible discharge to the halfway tomorrow if sodium continues to improve. - Problems/Diagnosis (1) Low back pain Problem: Chronic Qualifiers: Chronicity: chronic Back pain laterality: unspecified Sciatica presence: unspecified whether sciatica present Qualified Code(s): M54.5 - Low back pain; G89.29 - Other chronic pain (2) Neck pain Problem: Chronic (3) Hyponatremia Problem: Acute (4) Intractable nausea and vomiting Problem: Resolved (5) Urinary retention Problem: Acute (6) Abdominal pain Problem: Resolved Qualifiers: Abdominal location: epigastric Qualified Code(s): R10.13 - Epigastric pain (7) Gastroenteritis Problem: Resolved (8) Hypertension Problem: Chronic Qualifiers: Hypertension type: essential hypertension Qualified Code(s): I10 - Essential (primary) hypertension (9) CAD (coronary artery disease) Problem: Chronic Qualifiers: Coronary Disease-Associated Artery/Lesion type: [place] artery [place] vs. transplanted heart: [place] heart Associated angina: without angina Qualified Code(s): I25.10 - Atherosclerotic heart disease of [place] coronary artery without angina pectoris (10) Diabetes mellitus Problem: Chronic Qualifiers: Diabetes mellitus type: type 2 Diabetes mellitus usp insulin use: with dedicated intermodal truck driver use Diabetes mellitus complication status: with neurologic complications Diabetes mellitus complication detail: with polyneuropathy Qualified Code(s): E11.42 - Type 2 diabetes mellitus with diabetic polyneuropathy (11) Diabetic neuropathy Problem: Chronic Qualifiers: Diabetes mellitus type: type 2 Diabetes mellitus complication detail: diabetic polyneuropathy Qualified Code(s): E11.42 - Type 2 diabetes mellitus with diabetic polyneuropathy (12) Leg ulcer Problem: Acute
[2018-11-24] MEDS ORDERED: fentaNYL 12 MCG PATCH.TD72 TD SCH (09:00)
[2018-11-24] MEDS: FLUTICASONE PROPION/SALMETEROL 14 PUFF DISK.W.DEV IH SCH ×2 (09:37→21:04)
[2018-11-24] MEDS: METOPROLOL TARTRATE 50 MG TABLET PO SCH ×2 (09:39→21:05)
[2018-11-24] MEDS: GABAPENTIN 400 MG CAPSULE PO SCH ×3 (09:40→17:07)
[2018-11-24] MEDS: POLYETHYLENE GLYCOL 3350 17 GM PACKET PO SCH ×2 (09:40→21:04)
[2018-11-24] MEDS: amLODIPine BESYLATE 5 MG TABLET PO SCH (09:42)
[2018-11-24] MEDS: FAMOTIDINE 20 MG TABLET PO SCH (09:43)
[2018-11-24] MEDS: CLOPIDOGREL BISULFATE 75 MG TABLET PO SCH (09:43)
[2018-11-24] MEDS: SODIUM CHLORIDE 1 GM TABLET PO SCH ×3 (09:45→17:07)
[2018-11-24] MEDS: SILVER SULFADIAZINE 50 APPL JAR TP SCH (10:13)
[2018-11-24] MEDS: LEVOFLOXACIN 500 MG TABLET PO SCH (10:49)
[2018-11-24] MEDS: TAMSULOSIN HCL 0.4 MG CAP.SR.24H PO SCH (17:07)
[2018-11-24] MEDS: SENNOSIDES/DOCUSATE SODIUM 1 TAB TABLET PO SCH (21:05)
[2018-11-24] MEDS: FINASTERIDE 5 MG TABLET PO SCH (21:06)
[2018-11-24] MEDS: MONTELUKAST SODIUM 10 MG TABLET PO SCH (21:06)
[2018-11-24] MEDS: DOXAZOSIN MESYLATE 2 MG TABLET PO SCH (21:06)
[2018-11-25 06:08] LABS: Anion Gap 11.8 mmol/L (6.8-13.8); BUN/Creatinine Ratio 21.7 (9.0-21.6); Calcium * 8.4 mg/dL (7.9-10.9); Carbon Dioxide 26.1 mmol/L (24-32.6); Estimated Creat Clear 105.5; Potassium 3.9 mmol/L (3.4-4.6)
--- NOTE | 2018-11-25 07:36 | DS ---
(1) Low back pain Problem: Chronic Qualifiers: Chronicity: chronic Back pain laterality: unspecified Sciatica presence: unspecified whether sciatica present Qualified Code(s): M54.5 - Low back pain; G89.29 - Other chronic pain (2) Neck pain Problem: Chronic (3) Hyponatremia Problem: Resolved (4) Intractable nausea and vomiting Problem: Resolved (5) Urinary retention Problem: Acute (6) Abdominal pain Problem: Resolved Qualifiers: Abdominal location: epigastric Qualified Code(s): R10.13 - Epigastric pain (7) Gastroenteritis Problem: Resolved (8) Hypertension Problem: Chronic Qualifiers: Hypertension type: essential hypertension Qualified Code(s): I10 - Essential (primary) hypertension (9) CAD (coronary artery disease) Problem: Chronic Qualifiers: Coronary Disease-Associated Artery/Lesion type: [place] artery [place] vs. transplanted heart: [place] heart Associated angina: without angina Qualified Code(s): I25.10 - Atherosclerotic heart disease of [place] coronary artery without angina pectoris (10) Diabetes mellitus Problem: Chronic Qualifiers: Diabetes mellitus type: type 2 Diabetes mellitus intermediate designer insulin use: with skilled nursing use Diabetes mellitus complication status: with neurologic complications Diabetes mellitus complication detail: with polyneuropathy Qualified Code(s): E11.42 - Type 2 diabetes mellitus with diabetic polyneuropathy (11) Diabetic neuropathy Problem: Chronic Qualifiers: Diabetes mellitus type: type 2 Diabetes mellitus complication detail: diabetic polyneuropathy Qualified Code(s): E11.42 - Type 2 diabetes mellitus with diabetic polyneuropathy (12) Leg ulcer Problem: Acute Date of Discharge:: 11/25/18 Description of Stay: Jake Lawler is a 77-year-old male with multiple medical problems who was admitted on 11/14/2018 with intractable nausea and vomiting, acute urinary retention which he had for 2 days, severe low back pain, upper right shoulder and neck pain and pain radiating to the right wrist. The patient had been having N/V/D/abdominal pain and could not take his oral medications. he was admitted to our SCU initially by doctor otolaryngology surgeon for Nicardipine drip to control his BP . He had received IV boluses for his low urine output and had to have a sales for possible retention. He had a CT scan of the abdomen and he has had a cholecystectomy in the past. He had a trial of sales cath removal but had been retaining urine necessitating frequent straight sales cath. He was put back on indwelling sales cath and Urology was consulted. He is for cystoscopy. His N/V perisited until reglan for possible diabetic gastroparesis was started. He is back to mechanical soft , diabeti c diet. His Na went down likely due to SIADH vs rest oasmotat. Itis now 130. He will stay on fluid restriction 1.5 L/day. His pain of his neck and low back hampered his his work with PT . His lidocaine pacth was d/c and Fentanyl patch was initiated. He says his pain is better controlled and able to walk in the room. His gabapentin was increased to 800 mg PO TID. He will need an follow up MRI of his neck and LS spine and refer to anesthesia- Sd Ram for possible OTTO which worked before. Procedures Performed: none Results and Findings: Pending Mircobiology Results 11/22/18 07:36 Stool Stool Culture - Preliminary No Pathogens Isolated Lab Pending Results 11/14/18 01:22: WBC 9.1, RBC 5.06, Hgb 14.9, Hct 41.3 L, MCV 81.6, MCH 29.4, MCHC 36.1 H, RDW 12.7, Plt Count 179, MPV 12.2 H, Immature Gran % (Auto) 0.20, Immature Gran # (Auto) 0.02, Neutrophils % 76.2 H, Lymphocytes % 13.3 L, Monocytes % 8.5, Eosinophils % 1.0, Basophils % 0.8, Nucleated RBC % 0.0, Neutrophils # 6.9 H, Lymphocytes # 1.21 L, Monocytes # 0.8, Eosinophils # 0.1, Absolute Basophils 0.1 11/14/18 01:22: Sodium 137, Plasma Sodium 140, Potassium 3.4, Chloride 101, Carbon Dioxide 24.6, Anion Gap 14.8 H, BUN 17, Creatinine 0.93, Est GFR (Non-Af Amer) 101, BUN/Creatinine Ratio 18.3, Random Glucose 291 H, Calcium 9.5, Calcium Adj for Albumin 9.3, Total Bilirubin 0.9, AST 12, ALT 8 L, Alkaline Phosphatase 90, Troponin I Less than 0.017, Total Protein 7.5, Albumin 3.8, Amylase 33, Lipase 27 L 11/14/18 03:02: Urine Color Yellow, Urine Appearance Clear, Urine pH 7.5, Ur Specific [place] 1.010, Urine Protein Negative, Urine Glucose (UA) >=1000 H, Ur ine Ketones 15, Urine Blood Negative, Urine Nitrate Negative, Urine Bilirubin Negative, Urine Urobilinogen Normal, Ur Leukocyte Esterase Negative, Urine RBC None seen, Urine WBC None seen, Ur Epithelial Cells None seen, Urine Bacteria None seen, Urine Culture Comments No culture indicated 11/15/18 05:30: WBC 7.4, RBC 4.27 L, Hgb 12.5 L, Hct 36.0 L, MCV 84.3, MCH 29.3, MCHC 34.7, RDW 13.0, Plt Count 175, MPV 12.0 H, Immature Gran % (Auto) 0.30, Immature Gran # (Auto) 0.02, Neutrophils % 68.0, Lymphocytes % 17.6 L, Monocytes % 11.5 H, Eosinophils % 2.3, Basophils % 0.3, Nucleated RBC % 0.0, Neutrophils # 5.0, Lymphocytes # 1.30 L, Monocytes # 0.9, Eosinophils # 0.2, Absolute Basophils 0.0 11/15/18 05:30: Sodium 138, Plasma Sodium 138, Potassium 3.3 L, Chloride 103, Carbon Dioxide 27.2, Anion Gap 11.1, BUN 17, Creatinine 0.81, Est GFR (Non-Af Amer) 119, BUN/Creatinine Ratio 21.0, Random Glucose 116 H D, Calcium 8.0, Calcium Adj for Albumin 8.5, Total Bilirubin 0.8, AST 14, ALT 6 L, Alkaline Phosphatase 67, Total Protein 6.0 L, Albumin 3.0 L 11/15/18 05:30: Mean Blood Glucose 177, Hemoglobin A1c 7.9 H 11/17/18 05:00: Sodium 136, Plasma Sodium 136, Potassium 3.4, Chloride 100, Carbon Dioxide 26.9, Anion Gap 12.5, BUN 7 D, Creatinine 0.65, Est GFR (Non-Af Amer) 153 H D, BUN/Creatinine Ratio 10.8, Random Glucose 78 D, Calcium 8.6 11/17/18 11:38: Urine Color Yellow, Urine Appearance Slightly cloudy, Urine pH 7.0, Ur Specific [place] 1.010, Urine Protein Negative, Urine Glucose (UA) 100 H, Urine Ketones Negative, Urine Blood 5 H, Urine Nitrate Positive H, Urine Bilirubin Negative, Urine Urobilinogen Normal, Ur Leukocyte Esterase Negative, Urine RBC 0-5, Urine WBC None seen, Ur Epithelial Cells 0-5, Urine Bacteria 2+ H, Urine Comment Culture ordered L 11/18/18 17:19: Random Glucose 31 L D 11/19/18 14:04: WBC 12.5 H, RBC 3.96 L, Hgb 11.5 L, Hct 32.2 L, MCV 81.3, MCH 29.0, MCHC 35.7, RDW 12.8, Plt Count 200, MPV 10.6, Immature Gran % (Auto) 0.50 H, Immature Gran # (Auto) 0.06 H, Neutrophils % 76.5 H, Lymphocytes % 10.7 L, Monocytes % 9.4 H, Eosinophils % 2.7, Basophils % 0.2, Nucleated RBC % 0.0, Neutrophils # 9.6 H, Lymphocytes # 1.34 L, Monocytes # 1.2 H, Eosinophils # 0.3, Absolute Basophils 0.0 11/19/18 14:04: Sodium 125 L, Plasma Sodium 126 L, Potassium 4.5 D, Chloride 95 L, Carbon Dioxide 23.8 L, Anion Gap 10.7, BUN 13 D, Creatinine 0.76, Est GFR (Non-Af Amer) 128, BUN/Creatinine Ratio 17.1, Random Glucose 175 H D, Calcium 8.2, Calcium Adj for Albumin 8.9, Total Bilirubin 0.7, AST 14, ALT 6 L, Alkaline Phosphatase 60, Total Protein 5.6 L, Albumin 2.7 L 11/20/18 05:40: Sodium 125 L, Plasma Sodium 126 L, Potassium 4.1, Chloride 93 L, Carbon Dioxide 24.3, Anion Gap 11.8, BUN 10, Creatinine 0.68, Est GFR (Non-Af Amer) 145 H, BUN/Creatinine Ratio 14.7, Random Glucose 151 H, Calcium 7.9 11/20/18 13:50: WBC 10.6 H, RBC 3.94 L, Hgb 11.7 L, Hct 31.7 L, MCV 80.5, MCH 29.7, MCHC 36.9 H, RDW 12.5, Plt Count 190, MPV 10.4, Immature Gran % (Auto) 0.70 H, Immature Gran # (Auto) 0.07 H, Neutrophils % 74.5, Lymphocytes % 10.9 L, Monocytes % 10.6 H, Eosinophils % 3.1 H, Basophils % 0.2, Nucleated RBC % 0.0, Neutrophils # 7.9 H, Lymphocytes # 1.15 L, Monocytes # 1.1 H, Eosinophils # 0.3, Absolute Basophils 0.0 11/20/18 13:50: Sodium 122 L, Plasma Sodium 124 L, Potassium 4.4, Chloride 90 L, Carbon Dioxide 24.2, Anion Gap 12.2, BUN 11, Creatinine 0.71, Est GFR (Non-Af Amer) 138 H, BUN/Creatinine Ratio 15.5, Random Glucose 230 H D, Calcium 8.2, Calcium Adj for Albumin 8.8, Total Bilirubin 0.8, AST 19, ALT 11 L, Alkaline Phosphatase 66, Troponin I 0.024, Total Protein 5.9 L, Albumin 2.8 L 11/20/18 13:50: Procalcitonin 2.21 H 11/20/18 13:50: Serum Osmolality 252 L 11/20/18 16:15: Urine Osmolality 584 11/20/18 19:15: Troponin I 0.021 11/21/18 06:20: Sodium 124 L, Plasma Sodium 125 L, Potassium 4.0, Chloride 93 L, Carbon Dioxide 23.1 L, Anion Gap 11.9, BUN 11, Creatinine 0.63, Est GFR (Non-Af Amer) 158 H, BUN/Creatinine Ratio 17.5, Random Glucose 176 H, Calcium 8.1, Calcium Adj for Albumin 8.9, Total Bilirubin 0.7, AST 18, ALT 8 L, Alkaline Phosphatase 64, Total Protein 5.6 L, Albumin 2.6 L 11/21/18 15:16: Sodium 127 L, Plasma Sodium 128 L, Potassium 4.2, Chloride 93 L, Carbon Dioxide 25.7, Anion Gap 12.5, BUN 12, Creatinine 0.70, Est GFR (Non-Af Amer) 140 H, BUN/Creatinine Ratio 17.1, Random Glucose 179 H, Calcium 8.5 11/21/18 16:30: Ur Random Sodium 134 H 11/22/18 05:45: Sodium 122 L, Plasma Sodium 123 L, Potassium 4.0, Chloride 91 L, Carbon Dioxide 23.7 L, Anion Gap 11.3, BUN 11, Creatinine 0.62, Est GFR (Non-Af Amer) 161 H, BUN/Creatinine Ratio 17.7, Random Glucose 151 H, Calcium 8.3, Calcium Adj for Albumin 9.0, Total Bilirubin 0.8, AST 18, ALT 9 L, Alkaline P hosphatase 68, Total Protein 6.0 L, Albumin 2.7 L 11/22/18 05:46: B-Natriuretic Peptide 284, TSH 1.315 11/22/18 07:36: Stool Occult Blood Negative 11/22/18 14:16: Sodium 125 L 11/22/18 16:20: Sodium 123 L 11/22/18 19:45: Sodium 125 L 11/22/18 21:50: Sodium 123 L 11/23/18 05:36: WBC 9.5, RBC 4.04 L, Hgb 11.8 L, Hct 32.2 L, MCV 79.7, MCH 29.2, MCHC 36.6 H, RDW 12.6, Plt Count 232, MPV 10.8, Immature Gran % (Auto) 0.70 H, Immature Gran # (Auto) 0.07 H, Neutrophils % 71.2, Lymphocytes % 14.0 L, Monocytes % 10.3 H, Eosinophils % 3.5 H, Basophils % 0.3, Nucleated RBC % 0.0, Neutrophils # 6.8 H, Lymphocytes # 1.33 L, Monocytes # 1.0, Eosinophils # 0.3, Absolute Basophils 0.0 11/23/18 05:36: Sodium 122 L, Plasma Sodium 124 L, Potassium 3.8, Chloride 92 L, Carbon Dioxide 24.1, Anion Gap 9.7, BUN 11, Creatinine 0.62, Est GFR (Non-Af Amer) 161 H, BUN/Creatinine Ratio 17.7, Random Glucose 207 H D, Calcium 8.0 11/23/18 20:15: Sodium 128 L 11/24/18 08:00: Sodium 126 L 11/25/18 05:54: Sodium 130 L, Plasma Sodium 131, Potassium 3.9, Chloride 96 L, Carbon Dioxide 26.1, Anion Gap 11.8, BUN 15, Creatinine 0.69, Est GFR (Non-Af Amer) 143 H, BUN/Creatinine Ratio 21.7 H, Random Glucose 159 H, Calcium 8.4 Discharge Location: [facility] Disposition: SNF Condition: Stable Level of Care: SNF Discharge Activity: Activity as tolerated Discharge Diet: Consistent carbs, Mech soft, Other - Fluid restriction to 1.5 L/day Group Home Therapy: Physical Therapy, Occupation Therapy, Speech Therapy Referrals: Juanjo Chavez MD [Associate] - [facility] Steven Martinez MD [Primary Care Provider] - (To follow at [facility]) Problem Oriented Discharge Instructions to Patient/Family: Viral Gastr oenteritis, Adult, [id number]-[id number]-[id number], Acute Urinary Retention, Male, Strx-to-Eivh, Gastroparesis Additional Patient Instructions (free text): -Follow up with on 12-01-18 at 3:15 pm. Follow up with Dr. Chavez on 12-03-18 at 11:00 am. Prescriptions (Any new or edited meds): Insulin Glargine,Hum.rec.anlog [Basaglar Kwikpen U-100] 20 unit SUBCUT .AM #15 ml Doxazosin Mesylate [Cardura] 2 mg PO HS #30 tab Bisacodyl [Dulcolax Suppository] 10 mg RC DAILY PRN #7 supp.rect PRN Reason: Constipation fentaNYL [Duragesic] 12 mcg TD Q72H #4 patch.td72 Levofloxacin [Levaquin] 500 mg PO DAILY@1100 #5 tab Metoprolol Tartrate [Lopressor] 50 mg PO BID #60 tab Gabapentin [Neurontin] 800 mg PO TID #60 cap Famotidine [Pepcid] 20 mg PO DAILY #60 tab Finasteride [Proscar] 5 mg PO HS #30 tab Metoclopramide HCl [Reglan] 5 mg PO ACHS PRN #30 tab PRN Reason: Nausea Sennosides/Docusate Sodium [Senokot-S] 2 tab PO HS PRN #60 tab PRN Reason: Constipation Complete Home Medications List: Complete Home Medication List: Blood-Glucose Meter [Freestyle Lite Meter] 1 ea MC ACHS 12/24/11 Nitroglycerin [Nitrostat] 1 tab SL Q5MX3 PRN 12/24/11 Aspirin [Aspirin Enteric Coated] 325 mg PO DAILY 01/29/16 albuterol sulfate 2.5 mg/3 mL (0.083 %) solution for nebulization 2.5 mg IH QID #180 ml 11/30/17 clopidogrel 75 mg tablet 75 mg PO DAILY #90 tab 03/25/18 gabapentin 400 mg capsule 400 mg PO TID 90 Days #270 cap 03/25/18 Amlodipine Besylate 5 mg PO DAILY 06/01/18 Atorvastatin Calcium [Lipitor] 20 mg PO DAILY 06/01/18 Glucagon HCl 1 mg IJ PRN PRN 06/01/18 Syringe-Needle,Insulin,0.5 ml [Litetouch Insulin Syringe] 0 ea .ROUTE .MEDSUPPLY 06/01/18 albuterol sulfate HFA 90 mcg/actuation aerosol inhaler 2 puff IH QID PRN #18 g 06/01/18 metFORMIN HCL [Glucophage] 1,000 mg PO BID 06/01/18 BD Ultra-Fine Mini Pen Needle 31 gauge x 3/16" See Dose Instructions .ROUTE .MEDSUPPLY #100 ea NS 06/30/18 silver sulfadiazine 1 % topical cream 1 applic TP DAILY #50 g 07/22/18 Fluticasone Propion/Salmeterol [Advair 250-50 Diskus] 1 puff INHALATION BID 08/30/18 Montelukast Sodium [Singulair] 10 mg PO HS 08/30/18 Doxazosin Mesylate [Cardura] 2 mg PO HS #30 tab 11/19/18 Finasteride [Proscar] 5 mg PO HS #30 tab 11/19/18 Insulin Glargine,Hum.rec.anlog [Basaglar Emanuelikaneesh U-100] 20 unit SUBCUT .AM #15 ml 11/19/18 Metoprolol Tartrate [Lopressor] 50 mg PO BID #60 tab 11/19/18 Sennosides/Docusate Sodium [Senokot-S] 2 tab PO HS PRN #60 tab 11/19/18 Bisacodyl [Dulcolax Suppository] 10 mg RC DAILY PRN #7 supp.rect 11/25/18 Famotidine [Pepcid] 20 mg PO DAILY #60 tab 11/25/18 Gabapentin [Neurontin] 800 mg PO TID #60 cap 11/25/18 Levofloxacin [Levaquin] 500 mg PO DAILY@1100 #5 tab 11/25/18 Metoclopramide HCl [Reglan] 5 mg PO ACHS PRN #30 tab 11/25/18 fentaNYL [Duragesic] 12 mcg TD Q72H #4 patch.td72 11/25/18 Amb Orders for Discharge: Basic Metabolic Panel Time Frame: 1 Week, Location: Laboratory
[2018-11-25] MEDS: FAMOTIDINE 20 MG TABLET PO SCH (08:18)
[2018-11-25] MEDS: CLOPIDOGREL BISULFATE 75 MG TABLET PO SCH (08:18)
[2018-11-25] MEDS: FLUTICASONE PROPION/SALMETEROL 14 PUFF DISK.W.DEV IH SCH (08:18)
[2018-11-25] MEDS: POLYETHYLENE GLYCOL 3350 17 GM PACKET PO SCH (08:18)
[2018-11-25] MEDS: GABAPENTIN 400 MG CAPSULE PO SCH (08:18)
[2018-11-25] MEDS: SODIUM CHLORIDE 1 GM TABLET PO SCH (08:19)
[2018-11-25] MEDS: SILVER SULFADIAZINE 50 APPL JAR TP SCH (08:19)
[2018-11-25] MEDS: amLODIPine BESYLATE 5 MG TABLET PO SCH (09:48)
[2018-11-25] MEDS: METOPROLOL TARTRATE 50 MG TABLET PO SCH (09:48)
[2018-11-25] MEDS: LEVOFLOXACIN 500 MG TABLET PO SCH (10:31)
[2018-11-25 13:22] VITALS: BP 121/62
== END 2018-11-25 13:20 | DRG 391 ==
LOC: ER 00:28 → MS 04:00 → SCU 08:54 → MS 11-15 01:20
PROVIDERS: ADMIT Family Medicine; ATTEND Internal Medicine
DX: Z79.4 Long term (current) use of insulin; R53.1 Weakness; E11.621 Type 2 diabetes mellitus with foot ulcer; J44.9 Chronic obstructive pulmonary disease, unspecified; Z87.891 Personal history of nicotine dependence; R33.8 Other retention of urine; E22.2 Syndrome of inappropriate secretion of antidiuretic hormone; K31.84 Gastroparesis; J45.909 Unspecified asthma, uncomplicated; L89.623 Pressure ulcer of left heel, stage 3; I10 Essential (primary) hypertension; I25.10 Atherosclerotic heart disease of native coronary artery without angina pectoris; R11.2 Nausea with vomiting, unspecified; M54.2 Cervicalgia; A08.4 Viral intestinal infection, unspecified; N40.1 Benign prostatic hyperplasia with lower urinary tract symptoms; K59.00 Constipation, unspecified; M54.5 Low back pain; E11.42 Type 2 diabetes mellitus with diabetic polyneuropathy
CPT/HCPCS: 36415; 70450; 71010; 71045; 71275; 72110; 74019; 74020; 74175; 76770; 80048; 80053; 81001; 82150; 82272; 82947; 83036; 83519; 83690; 83880; 83930; 83935; 84145; 84295; 84300; 84443; 84484; 85025; 87045; 87046; 87077; 87081; 87086; 87186; 93005; 94640; 94664; 96365; 96366; 96375; 97110; 97116; 97140; 97161; 97530; 99285; J2405; Q9967

== ENCOUNTER 2018-12-22 11:40 | Inpatient (IN) ==
[2018-12-22] MEDS ORDERED: NORMAL SALINE 1,000 ML IV PRN (12:28)
[2018-12-22 12:56] LABS: Hematocrit 33.5 % (42.0-52.0); Hemoglobin 11.1 gm/dL (13.5-18.0); Mean Cell Volume 87.5 fl (78-100); Mean Corpuscular Hgb Conc 33.1 g/dl (32-36); Mean Platelet Volume 10.2 fl (8-11.3); Neutrophil # 17.7 K/mm3 (1.3-6.0); Neutrophil % 86.5 % (42-75.0); Platelet Count 295 K/mm3 (150-450); Red Blood Count 3.83 M/mm3 (4.7-6.0); Red Cell Distribution Width 13.2 % (11.5-14.0); White Blood Count 20.4 K/mm3 (4.0-10.5)
--- NOTE | 2018-12-22 12:58 | ERNOTE ---
Abdominal HPI - Narrative Date of Service: 12/22/18 - General Chief Complaint: Abdominal Pain Time Seen by Provider: 12/22/18 12:13 Source: patient Exam Limitations: no limitations - Immun/Allergies/Home Medications Immunizatons: IMMUNIZATION HX Immunizations Up to Date Yes History of Influenza Vaccine Yes Hx Pneumococcal Vaccination Yes Allergies/Adverse Reactions: Allergies lisinopril Allergy (Mild, Verified 12/17/18 12:07) Hives, "FEELS SICK" tamsulosin HCl [From Flomax] Adverse Reaction (Mild, Verified 12/17/18 12:07) "FEELS SICK" Home Medications: HOME MEDICATIONS Blood-Glucose Meter [Freestyle Lite Meter] 1 ea MC ACHS 12/24/11 [Last Taken 06/14/18] Nitroglycerin [Nitrostat] 1 tab SL Q5MX3 PRN 12/24/11 [Last Taken Unknown] Aspirin [Aspirin Enteric Coated] 325 mg PO DAILY 01/29/16 [Last Taken 06/16/18] albuterol sulfate 2.5 mg IH QID #180 ml 11/30/17 [Last Taken 06/01/18] clopidogrel 75 mg tablet 75 mg PO DAILY #90 tab 03/25/18 [Last Taken 12/10/18] Amlodipine Besylate 5 mg PO DAILY 06/01/18 [Last Taken 06/16/18] Atorvastatin Calcium [Lipitor] 20 mg PO DAILY 06/01/18 [Last Taken 06/16/18] Glucagon HCl 1 mg IJ PRN PRN 06/01/18 [Last Taken Unknown] Syringe-Needle,Insulin,0.5 ml [Warp 9uch Insulin Syringe] 0 ea .ROUTE .MEDSUPPLY 06/01/18 [Last Taken 06/14/18] albuterol sulfate 90 mcg/actuation aerosol inhaler 2 puff IH QID PRN #18 g 06/01/18 [Last Taken 06/01/18] metFORMIN HCL [Glucophage] 1,000 mg PO BID 06/01/18 [Last Taken 06/16/18] BD Ultra-Fine Mini Pen Needle 31 gauge x 3/16" See Dose Instructions .ROUTE .MEDSUPPLY #100 ea NS 06/30/18 [Last Taken Unknown] Fluticasone Propion/Salmeterol [Advair 250-50 Diskus] 1 puff INHALATION BID 08/30/18 [Last Taken Unknown] Montelukast Sodium [Singulair] 10 mg PO HS 08/30/18 [Last Taken Unknown] Doxazosin Mesylate [Cardura] 2 mg PO HS #30 tab 11/19/18 [Last Taken Unknown] Finasteride [Proscar] 5 mg PO HS #30 tab 11/19/18 [Last Taken Unknown] Metoprolol Tartrate [Lopressor] 50 mg PO BID #60 tab 11/19/18 [Last Taken Unknown] Sennosides/Docusate Sodium [Senokot-S] 2 tab PO HS PRN #60 tab 11/19/18 [Last Taken Unknown] Bisacodyl [Dulcolax Suppository] 10 mg RC DAILY PRN #7 supp.rect 11/25/18 [Last Taken Unknown] Famotidine [Pepcid] 20 mg PO DAILY #60 tab 11/25/18 [Last Taken Unknown] Metoclopramide HCl [Reglan] 5 mg PO ACHS PRN #30 tab 11/25/18 [Last Taken Unknown] gabapentin 400 mg capsule 400 mg PO TID #0.1 cap 12/01/18 [Last Taken Unknown] insulin glargine 100 unit/mL (3 mL) subcutaneous pen 10 unit SUBCUT .am #15 ml 12/01/18 [Last Taken Unknown] ondansetron HCl 4 mg tablet 4 mg PO Q6H PRN #30 tab 12/08/18 [Last Taken Unknown] fentanyl 25 mcg/hr transdermal patch 1 patch TRANSDERMAL Q72H #5 ea 12/17/18 [Last Taken Unknown] Arginine/Ascorbate Sod/Yuan AC [Arginaid Powder] 1 ea PO BID 12/22/18 [Last Taken Unknown] Escitalopram Oxalate [Lexapro] 10 mg PO DAILY 12/22/18 [Last Taken Unknown] Whey Protein Isolate [Beneprotein] 1 ea PO BIDWM 12/22/18 [Last Taken Unknown] - Pain Score Pain Score #1 Pain Score: 1 Abdominal Pain Onset Location: LLQ Pain Radiation: no radiation - History of Present Illness Narrative: The patient is a 78 year old male who presents for nausea and vomiting which has been present for 3 days. There are no associated symptoms. The patient denies pain. There are no alleviating factors. There are no aggravating factors. Previous treatments have included: Zofran with improvement. The past medical history includes: asthma, BPH, COPD, CAD, depression, DM, DJD, GERD and HLD. The social history is positive for former smoker. The patient has had no ill contacts. Patient was recently treated with Bactrim for UTI positive for MRSA urine. Patient reports last emesis being this am. Patient reports normal BM yesterday. Review of Systems - Review of Systems Constitutional: Present: fatigue. Absent: fever EYE: Present: no symptoms reported ENT: Present: no symptoms reported. Absent: ear pain, nasal drainage, sore throat Respiratory: Present: no symptoms reported. Absent: shortness of breath, cough Cardiology: Present: no symptoms reported. Absent: chest pain Gastrointestinal/Abdominal: Present: nausea, vomiting, abdominal pain. Absent: diarrhea, constipation Genitourinary: Present: no symptoms reported. Absent: dysuria, decreased urinary output Musculoskeletal: Present: no symptoms reported Skin: Present: no symptoms reported. Absent: rash Neurological: Present: no symptoms reported. 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 Depression (Chronic) Onset Date: Unknown CAD (coronary artery disease) (Chronic) Onset Date: Unknown COPD (chronic obstructive pulmonary disease) (Chronic) Onset Date: ~1985 BPH (benign prostatic hyperplasia) (Chronic) Onset Date: ~2005 TURP Asthma (Chronic) Onset Date: ~1985 Bronchitis Onset Date: ~10/2016 [facility] inpatient Contracture of tendon Onset Date: ~01/08/12 Diabetic foot ulcers Lives with spouse Myocardial infarction Onset Date: ~2009 No history of alcohol use Non-tobacco user Respiratory failure Onset Date: ~10/2016 Acute; unspecified whether with hypoxia or hypercapnia, inpatient at [facility] Hyperlipidemia Onset Date: ~2004 Leukocytosis Onset Date: ~2003 Chambers's neuroma Onset Date: ~12/03/11 Neck pain Onset Date: ~2005 history of neck injury Peripheral neuropathy Onset Date: ~06/14/06 secondary to diabetes Spinal stenosis Onset Date: Unknown UTI (urinary tract infection) Onset Date: Unknown Surgical History: Surgical History (Last Reviewed 12/22/18 @ 12:47 by RAMESH Cosby) History of bilateral cataract extraction H/O colonoscopy Onset Date: ~01/200607/15/11; Shimon Normal follow up in 7-10 years. Tinguely H/O knee surgery Onset Date: ~1959 [facility] History of esophagogastroduodenoscopy (EGD) Onset Date: ~07/15/11 With biopsy. Krystaely BERTHA test negative Hx laparoscopic cholecystectomy Onset Date: ~12/26/11 Tinguely Male circumcision Onset Date: ~07/2005 Aher S/P TURP (status post transurethral resection of prostate) Onset Date: ~04/2005 AHER S/P cervical spinal fusion Onset Date: ~1989 1999. Posterior and anterior fusion. Initially done in 1989 then repeated in 1999 S/P epidural steroid injection Onset Date: ~04/2005, 11/01, L3-4, C7-T1, L4-5, and L5-S1 Stented coronary artery Onset Date: ~06/30/12 Sophy; Left anterior descending artery utilizing a 2.75 x 20 mm promus stent Family History: Family History (Last Reviewed 12/22/18 @ 12:47 by RAMESH Cosby) Father , age 68 Cancer lung Mother , age 65 Diabetes Hypertension CVA (cerebral vascular accident) Brother , 1 at age 57 due to brain cancer; 1 at age 62 lung/stomach cancer; 1 age 72 stomach cancer; 3 at ages 51, 56, and 41 due to [place] No problems noted. Sister , 1 at age 39 due to uterine cancer; one at age 73 [place] Myocardial infarction Sister Sister Sister Cancer cervical Sister Cancer unknown type Sister Cancer brain cancer Brother Brother Cancer unknown type Brother Brother Cancer unknown type Brother Myocardial infarction Brother Cancer brain cancer Brother Brother Unknown whether patient has any health problems Son Alive and well Son Alive and well Daughter Alive and well Son Alive and well Son Alive and well Daughter Hypertension Daughter Alive and well Social History: (Last Reviewed 12/22/18 @ 12:47 by Chrissy Manjula, CYBERATHLETE) Social History: adopted: No Marital status: lives independently: Yes household members: spouse number of children: 7 current occupational status: retired Highest education level completed: 9th grade Service: No Tobacco: Smoking Status: Former smoker how long ago did patient quit smoking: age 39 Alcohol: alcohol intake: former Substance Use: substance use type: unknown Dietary Habits: caffeine: Yes Physical Exam - Physical Exam General Appearance: Present: wd/wn, alert, mild distress Head Exam: Present: normal inspection Eye Exam: Normal inspection: bilateral Neck: Present: normal inspection Respiratory: Present: no respiratory distress, normal breath sounds, no accessory muscle use, lungs clear Cardiovascular/Chest: Present: regular rate, rhythm, no murmur Gastrointestinal/Abdominal: Present: normal bowel sounds, nondistended, soft, no organomegaly, tenderness - LLQ, mild. Absent: guarding, mass Extremity Exam: Present: no edema Neurological Exam: Present: alert, oriented, normal mood/affect, no motor/sensory deficits Skin Exam: Present: normal color, warm/dry Progress - Date and Time Seen: Date and Time: 12/22/18 14:02 Patient previously being treated with Cipro for UTI, culture resulted this am showed MRSA which was resistant to medication. Patient was changed to Bactrim this am. 12/22/18 14:20 Discussed case with will admit to observation after discussion with case management. - Results and Orders Patient's Lab Results:: I have reviewed the patient's lab results. - Vital Signs Patient's Vital Signs:: I have reviewed the patient's vital signs. Vital Signs: Vital Signs 12/22/18 12:04 12/22/18 12:36 Temperature 36.3 C Pulse Rate 83 85 Respiratory Rate 16 Blood Pressure 86/55 L O2 Sat by Pulse Oximetry 94 Review of orthostatic BPs obtained - X-Ray X-Ray #1 X-Ray: abdomen Interpretation: Reviewed by me X-ray Comments: IMPRESSION: 1. NONSPECIFIC BOWEL GAS PATTERN Electronically signed by Blue Martinez M.D.. - Progress/Reassessment Chief Complaint: Abdominal Pain Departure Clinical Impression: Failure of outpatient treatment Urinary tract infection Qualifiers: Urinary tract infection type: site unspecified Hematuria presence: without hematuria Qualified Code(s): N39.0 - Urinary tract infection, site not specified Vomiting Qualifiers: Vomiting type: unspecified Vomiting Intractability: non-intractable Nausea presence: with nausea Qualified Code(s): R11.2 - Nausea with vomiting, unspecified - Departure Disposition: Still a patient Condition: Stable
[2018-12-22 13:00] LABS: Urine Bilirubin 1 mg/dl (NEGATIVE); Urine Blood 250 /ul (NEGATIVE); Urine Ketone Negative (NEGATIVE); Urine Nitrite Negative (NEGATIVE); Urine Protein 100 mg/dL (NEGATIVE); Urine Specific Gravity >=1.030 SP.GR. (1.005-1.030); Urine Urobilinogen Normal (NORMAL)
[2018-12-22 13:08] LABS: Urine Appearance Slightly Cloudy (CLEAR); Urine Bacteria 1+; Urine Color Yellow
[2018-12-22 13:09] LABS: Urine Mucus Few - 1+
[2018-12-22 13:14] LABS: Albumin * 2.6 gm/dl (3.4-5.0); Anion Gap 11.1 mmol/L (6.8-13.8); BUN/Creatinine Ratio 32.7 (9.0-21.6); Bilirubin, Total 0.7 mg/dL (0.0-1.1); Ca. Corrected For Albumin 9.4 mg/dL (8.4-10.2); Calcium * 8.6 mg/dL (7.9-10.9); Carbon Dioxide 29.2 mmol/L (24-32.6); Potassium 4.3 mmol/L (3.4-4.6); Total Protein 6.3 gm/dL (6.2-8.2)
[2018-12-22] MEDS: NORMAL SALINE 1,000 ML IV PRN ×2 (14:58→23:18)
[2018-12-22] MEDS: LINEZOLID IN DEXTROSE 5% 600 MG/300 ML BAG IV SCH (15:17)
[2018-12-22] MEDS ORDERED: ALBUTEROL SULFATE 2.5 MG/0.5 ML VIAL.NEB IH PRN (15:20)
[2018-12-22] MEDS ORDERED: GLUCAGON,HUMAN RECOMBINANT 1 MG VIAL IJ PRN (15:20)
[2018-12-22] MEDS ORDERED: NITROGLYCERIN 0.4 MG/TAB BTL SL PRN (15:20)
[2018-12-22] MEDS ORDERED: INSULIN GLARGINE,HUM.REC.ANLOG 100 UNITS/ML VIAL SC SCH (15:45)
[2018-12-22] MEDS ORDERED: ROSUVASTATIN CALCIUM 10 MG TABLET PO SCH (15:45)
--- NOTE | 2018-12-22 15:55 | HP ---
Chief Complaint - Chief Complaint Date of Service: 12/22/18 Time of Service: 15:39 Chief Complaint: I have had vomiting, weakness, and urinary tract infection over the past several days History of Present Illness: 78-year-old male assisted resident with past medical history of type 2 diabetes, hypertension, bronchial asthma, COPD, coronary artery disease with old RI, BPH, GERD, hyperlipidemia, was evaluated in our ER due to worsening weakness and ongoing nonbloody vomiting over the past several days. Patient was seen recently in the ER and was diagnosed with a UTI for which she was prescribed p.o. antibiotics and was sent back to the assisted, however 2 days later he started vomiting and complained of poor oral intake. Patient subsequently became weak and has been deconditioning since then. Urine culture taken at his last visit to the ER demonstrate a growth of MRSA susceptible to several antibiotics. Of importance patient was also treated for urinary retention and inability to urinate and underwent urinary catheterization and a Olsen catheter was left in place. Patient was then sent home with the same catheter to alleviate his retention, it is highly suspected that this is a source of his infection. He denies fever but reports having chills and feeling extremely cold since becoming ill. Medical History (Last Reviewed 12/22/18 @ 12:47 by RAMESH Cosby) Hiatal hernia (Chronic) Onset Date: ~1994 Gastroesophageal reflux (Chronic) Onset Date: Unknown DJD (degenerative joint disease), multiple sites (Chronic) Onset Date: Unknown Diabetes 1.5, 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 Depression (Chronic) Onset Date: Unknown CAD (coronary artery disease) (Chronic) Onset Date: Unknown COPD (chronic obstructive pulmonary disease) (Chronic) Onset Date: ~1985 BPH (benign prostatic hyperplasia) (Chronic) Onset Date: ~2005 TURP Asthma (Chronic) Onset Date: ~1985 Bronchitis Onset Date: ~10/2016 [facility] inpatient Contracture of tendon Onset Date: ~01/08/12 Diabetic foot ulcers Lives with spouse Myocardial infarction Onset Date: ~2009 No history of alcohol use Non-tobacco user Respiratory failure Onset Date: ~10/2016 Acute; unspecified whether with hypoxia or hypercapnia, inpatient at [facility] Hyperlipidemia Onset Date: ~2004 Leukocytosis Onset Date: ~2003 Chambers's neuroma Onset Date: ~12/03/11 Neck pain Onset Date: ~2005 history of neck injury Peripheral neuropathy Onset Date: ~08/06/05 secondary to diabetes Spinal stenosis Onset Date: Unknown UTI (urinary tract infection) Onset Date: Unknown Surgical History: Surgical History (Last Reviewed 12/22/18 @ 12:47 by RAMESH Cosby) History of bilateral cataract extraction H/O colonoscopy Onset Date: ~01/200607/15/11; Normal follow up in 7-10 years. Tinguely H/O knee surgery Onset Date: ~1959 [facility] History of esophagogastroduodenoscopy (EGD) Onset Date: ~07/15/11 With biopsy. Tinguely BERTHA test negative Hx laparoscopic cholecystectomy Onset Date: ~12/26/11 Tinguely Male circumcision Onset Date: ~07/2005 Aher S/P TURP (status post transurethral resection of prostate) Onset Date: ~04/2005 AHER S/P cervical spinal fusion Onset Date: ~1989 1999. Posterior and anterior fusion. Initially done in 1989 then repeated in 1999 S/P epidural steroid injection Onset Date: ~04/2005/, 11/01, L3-4, C7-T1, L4-5, and L5-S1 Stented coronary artery Onset Date: ~06/30/12 Sophy; Left anterior descending artery utilizing a 2.75 x 20 mm promus stent Family History: Family History (Last Reviewed 12/22/18 @ 12:47 by RAMESH Cosby) Father , age 68 Cancer lung Mother , age 65 Diabetes Hypertension CVA (cerebral vascular accident) Brother , 1 at age 57 due to brain cancer; 1 at age 62 lung/stomach cancer; 1 age 72 stomach cancer; 3 at ages 51, 56, and 41 due to RI No problems noted. Sister , 1 at age 39 due to uterine cancer; one at age 73 RI Myocardial infarction Sister Sister Sister Cancer cervical Sister Cancer unknown type Sister Cancer brain cancer Brother Brother Cancer unknown type Brother Brother Cancer unknown type Brother Myocardial infarction Brother Cancer brain cancer Brother Brother Unknown whether patient has any health problems Son Alive and well Son Alive and well Daughter Alive and well Son Alive and well Son Alive and well Daughter Hypertension Daughter Alive and well Social History: (Last Reviewed 12/22/18 @ 12:47 by TULIO Cosby Social History: adopted: No Marital status: lives independently: Yes household members: spouse number of children: 7 current occupational status: retired Highest education level completed: 9th grade Service: No Tobacco: Smoking Status: Former smoker how long ago did patient quit smoking: age 39 Alcohol: alcohol intake: former Substance Use: substance use type: unknown Dietary Habits: caffeine: Yes Peds Patient Hx - Developmental: No Pertinent Hx Peds Patient Hx - Medical: No Pertinent Hx Peds Patient Hx - Cardiac/Respiratory: No Pertinent Hx Peds Patient Hx - Surgical: No Surgical History Patient History - Cancer: No Hx of Cancer Review Of Systems (GEN) - Review of Systems Generalized/Overall Review: Present: Weakness, Chills EENTM: Present: No Symptoms Reported Respiratory: Present: No Symptoms Reported Cardiac: Present: No Symptoms Reported Abdominal: Present: Nausea, Vomiting Genitourinary: Present: Retention Musculoskeletal: Present: No Symptoms Reported Neurological: Present: No Symptoms Reported Skin: Present: No Symptoms Reported Endocrine: Present: No Symptoms Reported Immunizations: IMMUNIZATION HX Immunizations Up to Date Yes History of Influenza Vaccine Yes Hx Pneumococcal Vaccination Yes Allergies/Adverse Reactions: Allergies Allergy/AdvReac Type Severity Reaction Status Date / Time lisinopril Allergy Mild Hives, Verified 12/22/18 15:45 "FEELS SICK" tamsulosin HCl [From Flomax] AdvReac Mild "FEELS Verified 12/22/18 15:45 SICK" Home Medications: HOME MEDICATIONS Blood-Glucose Meter [Freestyle Lite Meter] 1 ea MC ACHS 12/24/11 [Last Taken 06/14/18] Nitroglycerin [Nitrostat] 1 tab SL [id number] PRN 12/24/11 [Last Taken Unknown] Aspirin [Aspirin Enteric Coated] 325 mg PO DAILY 01/29/16 [Last Taken 06/16/18] albuterol sulfate 2.5 mg IH QID #180 ml 11/30/17 [Last Taken 06/01/18] clopidogrel 75 mg tablet 75 mg PO DAILY #90 tab 03/25/18 [Last Taken 12/10/18] Amlodipine Besylate 5 mg PO DAILY 06/01/18 [Last Taken 06/16/18] Atorvastatin Calcium [Lipitor] 20 mg PO DAILY 06/01/18 [Last Taken 06/16/18] Glucagon HCl 1 mg IJ PRN PRN 06/01/18 [Last Taken Unknown] Syringe-Needle,Insulin,0.5 ml [Litetouch Insulin Syringe] 0 ea .ROUTE .MEDSUPPLY 06/01/18 [Last Taken 06/14/18] albuterol sulfate 90 mcg/actuation aerosol inhaler 2 puff IH QID PRN #18 g 06/01/18 [Last Taken 06/01/18] metFORMIN HCL [Glucophage] 1,000 mg PO BID 06/01/18 [Last Taken 06/16/18] BD Ultra-Fine Mini Pen Needle 31 gauge x 316" See Dose Instructions .ROUTE .MEDSUPPLY #100 ea NS 06/30/18 [Last Taken Unknown] Fluticasone Propion/Salmeterol [Advair 250-50 Diskus] 1 puff INHALATION BID 08/30/18 [Last Taken Unknown] Montelukast Sodium [Singulair] 10 mg PO HS 08/30/18 [Last Taken Unknown] Doxazosin Mesylate [Cardura] 2 mg PO HS #30 tab 11/19/18 [Last Taken Unknown] Finasteride [Proscar] 5 mg PO HS #30 tab 11/19/18 [Last Taken Unknown] Metoprolol Tartrate [Lopressor] 50 mg PO BID #60 tab 11/19/18 [Last Taken Unknown] Sennosides/Docusate Sodium [Senokot-S] 2 tab PO HS PRN #60 tab 11/19/18 [Last Taken Unknown] Bisacodyl [Dulcolax Suppository] 10 mg RC DAILY PRN #7 supp.rect 11/25/18 [Last Taken Unknown] Famotidine [Pepcid] 20 mg PO DAILY #60 tab 11/25/18 [Last Taken Unknown] Metoclopramide HCl [Reglan] 5 mg PO ACHS PRN #30 tab 11/25/18 [Last Taken Unknown] gabapentin 400 mg capsule 400 mg PO TID #0.1 cap 12/01/18 [Last Taken Unknown] insulin glargine 100 unit/mL (3 mL) subcutaneous pen 10 unit SUBCUT .am #15 ml 12/01/18 [Last Taken Unknown] ondansetron HCl 4 mg tablet 4 mg PO Q6H PRN #30 tab 12/08/18 [Last Taken Unknown] fentanyl 25 mcg/hr transdermal patch 1 patch TRANSDERMAL Q72H #5 ea 12/17/18 [Last Taken Unknown] Arginine/Ascorbate Sod/Yuan AC [Arginaid Powder] 1 ea PO BID 12/22/18 [Last Taken Unknown] Escitalopram Oxalate [Lexapro] 10 mg PO DAILY 12/22/18 [Last Taken Unknown] Whey Protein Isolate [Beneprotein] 1 ea PO BIDWM 12/22/18 [Last Taken Unknown] Exam - Exam Vital Signs: Vital Signs - Last Taken Temp 36.8 C 12/22/18 14:47 Pulse 89 12/22/18 14:47 Resp 16 12/22/18 14:47 BP 148/78 12/22/18 14:47 Pulse Ox 95 12/22/18 14:47 Constitutional: Present: Alert, Oriented x3, Cooperative, Well developed, Well nourished, No distress, Elderly, Thin and frail ENT Exam: Present: normal ENT inspection, hearing grossly normal, pharynx normal, TMs normal Eye Exam: bilateral eye: normal inspection, PERRL, EOMI Neck: Present: non-tender, full range of motion, supple, normal inspection, trachea midline, limited range of motion Back Exam: Present: normal inspection, no CVA tenderness, no vertebral tenderness Breasts: Present: Exam deferred Respiratory: Present: chest non-tender, lungs clear, normal breath sounds, no respiratory distress, no accessory muscle use Cardiovascular/Chest: Present: normal peripheral pulses, regular rate, rhythm, no chest tenderness, no edema, no gallop, no JVD, no murmur, no rub Peripheral Pulses: carotid (R): 3+, carotid (L): 3+, femoral (R): 3+, femoral (L): 3+, dorsalis-pedis (R): 3+, dorsalis-pedis (L): 3+ Abdomen: Present: Normal bowel sounds, soft, nontender, nondistended, no rebound tenderness, no hepatospenomegaly, no masses /Rectal: Present: Exam deferred Extremity: Present: normal range of motion, non-tender, normal inspection, no pedal edema, no calf tenderness, normal capillary refill Skin Exam: Present: normal color, warm/dry, no cyanosis Lymphatic: Present: no adenopathy Neurologic: Present: heel splitter II-XII nml as tested, no motor/sensory deficits, alert, normal mood/affect, oriented x 3 Appearance: Present: appropriate appearance, appropriate insight, neat, no memory impairment Eye contact: Present: cooperative, good eye contact, normal speech Thoughts: Present: normal thought pattern, no apparent hallucination Diagnostic Studies: Abnormal Lab Results 12/22/18 12/22/18 12/22/18 Range/Units 12:45 12:50 12:50 WBC 20.4 H (4.0-10.5) K/mm3 RBC 3.83 L (4.7-6.0) M/mm3 Hgb 11.1 L (13.5-18.0) gm/dL Hct 33.5 L (42.0-52.0) % Immature Gran % (Auto) 1.80 H (0.001-0.429) % Immature Gran # (Auto) 0.37 H (0.000-0.0310) K/mm3 Neutrophils % 86.5 H (42-75.0) % Lymphocytes % 5.4 L (20-51) % Neutrophils # 17.7 H (1.3-6.0) K/mm3 Lymphocytes # 1.11 L (1.5-3.5) k/mm3 BUN 34 H (6-23) mg/dL BUN/Creatinine Ratio 32.7 H (9.0-21.6) Random Glucose 216 H (70-110) mg/dL Lactic Acid, Venous (0.4-2.0) mmol/L C-Reactive Prot, Quant (0.0-0.9) mg/dL Albumin 2.6 L (3.4-5.0) gm/dl Lipase 27 L (73-393) U/L Urine Protein 100 H (NEGATIVE) mg/dL Urine Blood 250 H (NEGATIVE) /ul Urine Bilirubin 1 H (NEGATIVE) mg/dl Ur Leukocyte Esterase 25 H (NEGATIVE) /ul Urine RBC 5-10 H (0-5) /hpf Urine WBC 5-10 H (0-5) /hpf Urine Bacteria 1+ H (NONE) Urine Mucus Few - 1+ H (NONE) 12/22/18 12/22/18 Range/Units 12:50 13:01 WBC (4.0-10.5) K/mm3 RBC (4.7-6.0) M/mm3 Hgb (13.5-18.0) gm/dL Hct (42.0-52.0) % Immature Gran % (Auto) (0.001-0.429) % Immature Gran # (Auto) (0.000-0.0310) K/mm3 Neutrophils % (42-75.0) % Lymphocytes % (20-51) % Neutrophils # (1.3-6.0) K/mm3 Lymphocytes # (1.5-3.5) k/mm3 BUN (6-23) mg/dL BUN/Creatinine Ratio (9.0-21.6) Random Glucose (70-110) mg/dL Lactic Acid, Venous 2.3 H* (0.4-2.0) mmol/L C-Reactive Prot, Quant 3.2 H (0.0-0.9) mg/dL Albumin (3.4-5.0) gm/dl Lipase (73-393) U/L Urine Protein (NEGATIVE) mg/dL Urine Blood (NEGATIVE) /ul Urine Bilirubin (NEGATIVE) mg/dl Ur Leukocyte Esterase (NEGATIVE) /ul Urine RBC (0-5) /hpf Urine WBC (0-5) /hpf Urine Bacteria (NONE) Urine Mucus (NONE) Laboratory Results WBC 20.4 K/mm3 (4.0-10.5) H 12/22/18 12:50 RBC 3.83 M/mm3 (4.7-6.0) L 12/22/18 12:50 Hgb 11.1 gm/dL (13.5-18.0) L 12/22/18 12:50 Hct 33.5 % (42.0-52.0) L 12/22/18 12:50 MCV 87.5 fl (78-100) 12/22/18 12:50 MCH 29.0 pg (27-31) 12/22/18 12:50 MCHC 33.1 g/dl (32-36) 12/22/18 12:50 RDW 13.2 % (11.5-14.0) 12/22/18 12:50 Plt Count 295 K/mm3 (150-450) 12/22/18 12:50 MPV 10.2 fl (8-11.3) 12/22/18 12:50 Immature Gran % (Auto) 1.80 % (0.001-0.429) H 12/22/18 12:50 Immature Gran # (Auto) 0.37 K/mm3 (0.000-0.0310) H 12/22/18 12:50 Neutrophils % 86.5 % (42-75.0) H 12/22/18 12:50 Lymphocytes % 5.4 % (20-51) L 12/22/18 12:50 Monocytes % 4.8 % (0.0-9) 12/22/18 12:50 Eosinophils % 1.1 % (0.0-3.0) 12/22/18 12:50 Basophils % 0.4 % (0.0-1.0) 12/22/18 12:50 Nucleated RBC % 0.0 k/mm3 (0-1) 12/22/18 12:50 Neutrophils # 17.7 K/mm3 (1.3-6.0) H 12/22/18 12:50 Lymphocytes # 1.11 k/mm3 (1.5-3.5) L 12/22/18 12:50 Monocytes # 1.0 k/mm3 (0.0-1.0) 12/22/18 12:50 Eosinophils # 0.2 k/mm3 (0.0-0.7) 12/22/18 12:50 Absolute Basophils 0.1 k/mm3 (0.0-0.1) 12/22/18 12:50 Sodium 137 mmol/L (132-142) 12/22/18 12:50 Plasma Sodium 139 mmol/L (130-142) 12/22/18 12:50 Potassium 4.3 mmol/L (3.4-4.6) 12/22/18 12:50 Chloride 101 mmol/L (97-106) 12/22/18 12:50 Carbon Dioxide 29.2 mmol/L (24-32.6) 12/22/18 12:50 Anion Gap 11.1 mmol/L (6.8-13.8) 12/22/18 12:50 BUN 34 mg/dL (6-23) H 12/22/18 12:50 Creatinine 1.04 mg/dL (0.4-1.4) 12/22/18 12:50 Est GFR (Non-Af Amer) 89 mL/min (60-130) D 12/22/18 12:50 BUN/Creatinine Ratio 32.7 (9.0-21.6) H 12/22/18 12:50 Random Glucose 216 mg/dL (70-110) H 12/22/18 12:50 Lactic Acid, Venous 2.3 mmol/L (0.4-2.0) H* 12/22/18 12:50 Calcium 8.6 mg/dL (7.9-10.9) 12/22/18 12:50 Calcium Adj for Albumin 9.4 mg/dL (8.4-10.2) 12/22/18 12:50 Total Bilirubin 0.7 mg/dL (0.0-1.1) 12/22/18 12:50 AST 12 U/L (0-48) 12/22/18 12:50 ALT 22 U/L (19-67) 12/22/18 12:50 Alkaline Phosphatase 94 U/L (50-170) 12/22/18 12:50 C-Reactive Prot, Quant 3.2 mg/dL (0.0-0.9) H 12/22/18 13:01 Total Protein 6.3 gm/dL (6.2-8.2) 12/22/18 12:50 Albumin 2.6 gm/dl (3.4-5.0) L 12/22/18 12:50 Amylase 30 U/L (25-115) 12/22/18 12:50 Lipase 27 U/L (73-393) L 12/22/18 12:50 Urine Color Yellow 12/22/18 12:45 Urine Appearance Slightly cloudy (CLEAR) 12/22/18 12:45 Urine pH 5.0 pH (5.0-7.0) 12/22/18 12:45 Ur Specific [place] >=1.030 SP.GR. (1.005-1.030) 12/22/18 12:45 Urine Protein 100 mg/dL (NEGATIVE) H 12/22/18 12:45 Urine Glucose (UA) Negative mg/dL (NEGATIVE) 12/22/18 12:45 Urine Ketones Negative mg/dL (NEGATIVE) 12/22/18 12:45 Urine Blood 250 /ul (NEGATIVE) H 12/22/18 12:45 Urine Nitrate Negative (NEGATIVE) 12/22/18 12:45 Urine Bilirubin 1 mg/dl (NEGATIVE) H 12/22/18 12:45 Urine Ictotest Negative (NEGATIVE) 12/22/18 12:45 Prot Sulfosalicylic Acd 1+ mg/dL (0) 12/22/18 12:45 Urine Urobilinogen Normal EU/dl (NORMAL) 12/22/18 12:45 Ur Leukocyte Esterase 25 /ul (NEGATIVE) H 12/22/18 12:45 Urine RBC 5-10 /hpf (0-5) H 12/22/18 12:45 Urine WBC 5-10 /hpf (0-5) H 12/22/18 12:45 Ur Epithelial Cells 0-5 /hpf (0-5) 12/22/18 12:45 Urine Bacteria 1+ (NONE) H 12/22/18 12:45 Urine Mucus Few - 1+ (NONE) H 12/22/18 12:45 Urine Culture Comments Culture to follow 12/22/18 12:45 Assessment/Plan - Narrative Narrative: Patient was evaluated and medical chart was reviewed and decision to admit to our inpatient MedSurg nava for observation was made. Labs on admission demonstrate a marked leukocytosis with a left shift and an elevated lactic acid level. Patient's electrolytes as well as renal function were within normal limits. We will treat him with IV antibiotics and IV hydration to hydrate him due to signs and symptoms of dehydration secondary to his vomiting. Patient's last episode of emesis was this morning but has now stopped vomiting with Zofran. We will keep Zofran on as-needed basis in case of ongoing vomiting. Blood cultures have been taken we will follow-up with results and additional labs in the morning. Patient is maintaining vitals and denies any pain. All routine medications were reconciled for him to continue receiving them during his hospitalization. - Assessment/Plan (1) Sepsis due to urinary tract infection Problem: Acute (2) MRSA (methicillin resistant Staphylococcus aureus) infection Problem: Acute (3) Indwelling urinary catheter present Problem: Acute (4) Diabetes 1.5, managed as type 2 Problem: Acute (5) Nausea & vomiting Problem: Acute Qualifiers: Vomiting Intractability: non-intractable (6) Dehydration Problem: Acute
[2018-12-22] MEDS: FAMOTIDINE 20 MG in DEXTROSE 5 % IN WATER 100 ML IV SCH ×2 (16:50)
[2018-12-22] MEDS: GABAPENTIN 400 MG CAPSULE PO SCH (16:50)
[2018-12-22] MEDS: ALBUTEROL SULFATE 2.5 MG/0.5 ML VIAL.NEB IH SCH (18:07)
[2018-12-22] MEDS: FLUTICASONE PROPION/SALMETEROL 14 PUFF DISK.W.DEV IH SCH (20:04)
[2018-12-22] MEDS: ROSUVASTATIN CALCIUM 10 MG TABLET PO SCH (20:05)
[2018-12-22] MEDS: FINASTERIDE 5 MG TABLET PO SCH (20:06)
[2018-12-22] MEDS: MONTELUKAST SODIUM 10 MG TABLET PO SCH (20:06)
[2018-12-22] MEDS: ARGININE PO SCH (20:07)
[2018-12-22] MEDS: ASCORBATE SOD PO SCH (20:07)
[2018-12-22] MEDS: METOPROLOL TARTRATE 50 MG TABLET PO SCH (20:07)
[2018-12-22] MEDS: DOXAZOSIN MESYLATE 2 MG TABLET PO SCH (20:07)
[2018-12-22] MEDS: VITE AC PO SCH (20:07)
[2018-12-23] MEDS: LINEZOLID IN DEXTROSE 5% 600 MG/300 ML BAG IV SCH (02:59)
[2018-12-23] MEDS: FAMOTIDINE 20 MG in DEXTROSE 5 % IN WATER 100 ML IV SCH ×4 (04:20→15:22)
[2018-12-23] MEDS: ALBUTEROL SULFATE 2.5 MG/0.5 ML VIAL.NEB IH SCH ×3 (06:10→14:56)
[2018-12-23 06:13] LABS: Hematocrit 31.6 % (42.0-52.0); Hemoglobin 10.4 gm/dL (13.5-18.0); Mean Cell Volume 87.5 fl (78-100); Mean Corpuscular Hemoglobin 28.8 pg (27-31); Mean Corpuscular Hgb Conc 32.9 g/dl (32-36); Mean Platelet Volume 10.9 fl (8-11.3); Neutrophil % 84.5 % (42-75.0); Platelet Count 267 K/mm3 (150-450); Red Blood Count 3.61 M/mm3 (4.7-6.0); Red Cell Distribution Width 13.2 % (11.5-14.0); White Blood Count 20.1 K/mm3 (4.0-10.5)
[2018-12-23 06:16] LABS: Albumin * 2.4 gm/dl (3.4-5.0); Anion Gap 8.9 mmol/L (6.8-13.8); BUN/Creatinine Ratio 35.7 (9.0-21.6); Bilirubin, Total 0.7 mg/dL (0.0-1.1); Ca. Corrected For Albumin 9.2 mg/dL (8.4-10.2); Calcium * 8.2 mg/dL (7.9-10.9); Carbon Dioxide 27.5 mmol/L (24-32.6); Potassium 3.4 mmol/L (3.4-4.6)
[2018-12-23] MEDS: ONDANSETRON 4 MG TAB.RAPDIS PO PRN ×3 (07:27→20:26)
[2018-12-23] MEDS: INSULIN GLARGINE,HUM.REC.ANLOG 100 UNITS/ML VIAL SC SCH (07:47)
[2018-12-23] MEDS: NORMAL SALINE 1,000 ML IV PRN ×2 (08:48→17:27)
[2018-12-23] MEDS: ACETAMINOPHEN 325 MG TABLET PO PRN ×2 (09:19→18:31)
[2018-12-23] MEDS: FLUTICASONE PROPION/SALMETEROL 14 PUFF DISK.W.DEV IH SCH ×2 (09:30→21:39)
[2018-12-23] MEDS: VITE AC PO SCH ×2 (09:31→21:40)
[2018-12-23] MEDS: ASCORBATE SOD PO SCH ×2 (09:31→21:40)
[2018-12-23] MEDS: ASPIRIN 325 MG TABLET.DR PO SCH (09:31)
[2018-12-23] MEDS: ARGININE PO SCH ×2 (09:31→21:40)
[2018-12-23] MEDS: METOPROLOL TARTRATE 50 MG TABLET PO SCH ×2 (09:32→21:43)
[2018-12-23] MEDS: DOCUSATE SODIUM 100 MG CAPSULE PO SCH (09:32)
[2018-12-23] MEDS: amLODIPine BESYLATE 5 MG TABLET PO SCH (09:33)
[2018-12-23] MEDS: CLOPIDOGREL BISULFATE 75 MG TABLET PO SCH (09:33)
[2018-12-23] MEDS: GABAPENTIN 400 MG CAPSULE PO SCH ×3 (09:33→17:18)
[2018-12-23] MEDS: ESCITALOPRAM OXALATE 10 MG TAB PO SCH (09:33)
--- NOTE | 2018-12-23 11:52 | PN ---
Progess Note - Interim Date: 12/23/18 Time: 11:46 Narrative: 12/23/18 11:46 Patient is feeling better. His UCS on admission is growing Staph species. His UCS on 12/20/18 showed MRSA which was sensitive to Bactrim for which the patient was started on oral bactrim . he was in PT when he stared having vomting x 4. It was not started as he was not able to keep it down. will change IV linezold to IV Bactrim as it more sensitive to it and his WBC did not really siginificiantly change with the linezolid.
[2018-12-23] MEDS ORDERED: TRIMETHOPRIM IV SCH ×2 (12:00)
[2018-12-23] MEDS ORDERED: WATER IV SCH ×2 (12:00)
[2018-12-23] MEDS ORDERED: SULFAMETHOXAZOLE IV SCH ×2 (12:00)
[2018-12-23] MEDS ORDERED: DEXTROSE IV SCH ×2 (12:00)
[2018-12-23] MEDS: SULFAMETHOXAZOLE/TRIMETHOPRIM 10 ML in DEXTROSE 5 % IN WATER 250 ML IV SCH ×4 (13:24→19:15)
--- NOTE | 2018-12-23 14:20 | PN ---
Subjective - Date and Time Seen Date: 12/23/18 Time: 14:14 Subjective Narrative: Patient is feeling better. He still N/V episodes. Objective - Review of Systems Generalized/Overall Review: Reports: Weakness. Denies: Chills, Fever EENTM: Denies: Blurred Vision Respiratory: Denies: Cough, Shortness of Breath, Wheezing Cardiac: Denies: Chest Pain, Edema, Palpitations Abdominal: Reports: Nausea, Vomiting Genitourinary Symptoms: Denies: Urgency, Frequency Musculoskeletal Complaints: Reports: Joint Pain, Back Pain, Neck Pain Neurological: Denies: Headache Skin: Denies: Lesions, Rash Endocrine: Denies: Intolerance to Cold, Intolerance to Heat Misc: All systems neg except as marked - Vitals Vitals: Last Vital Signs Temp 36.6 C 12/23/18 10:24 Pulse 98 12/23/18 10:41 Resp 18 12/23/18 10:41 BP 136/77 12/23/18 10:24 Pulse Ox 96 12/23/18 10:32 - Abnormal Lab Findings Abnormal Lab Findings: Abnormal Lab Results 12/22/18 12/23/18 12/23/18 Range/Units 12:50 05:35 05:35 WBC 20.1 H (4.0-10.5) K/mm3 RBC 3.61 L (4.7-6.0) M/mm3 Hgb 10.4 L (13.5-18.0) gm/dL Hct 31.6 L (42.0-52.0) % Immature Gran % (Auto) 1.20 H (0.001-0.429) % Immature Gran # (Auto) 0.24 H (0.000-0.0310) K/mm3 Neutrophils % 84.5 H (42-75.0) % Lymphocytes % 6.2 L (20-51) % Neutrophils # 17.0 H (1.3-6.0) K/mm3 Lymphocytes # 1.24 L (1.5-3.5) k/mm3 Monocytes # 1.1 H (0.0-1.0) k/mm3 BUN 25 H (6-23) mg/dL Est GFR (Non-Af Amer) 140 H D (60-130) mL/min BUN/Creatinine Ratio 35.7 H (9.0-21.6) Random Glucose 209 H (70-110) mg/dL Lactic Acid, Venous 2.3 H* (0.4-2.0) mmol/L ALT 17 L (19-67) U/L Total Protein 6.0 L (6.2-8.2) gm/dL Albumin 2.4 L (3.4-5.0) gm/dl - Exam Constitutional: Present: Alert, Oriented x3, Cooperative, Elderly Neck: Present: limited range of motion. Absent: lymphadenopathy (R), lymphadenopathy (L) Respiratory: Present: decreased breath sounds, No rales, No wheezing Cardiovascular/Chest: Present: regular rate, rhythm, no edema, no JVD, no murmur Abdomen: Present: Normal bowel sounds, soft, nontender, nondistended Extremity: Present: no pedal edema, no calf tenderness Cauti Physician Documentation - Urinary Catheter Management Urethral (Olsen) Date of Insertion: 12/22/18 Time of Insertion: 16:26 Assessment/Plan Plan Narrative: His UCS on admission is growing Staph species. His UCS on 12/20/18 showed MRSA which was sensitive to Bactrim for which the patient was started on oral bactrim . He was in PT when he stared having vomiting x 4. It was not started as he was not able to keep it down. I will change IV linezold to IV Bactrim as it more sensitive to it and his WBC did not really siginificiantly change with the linezolid.He is unable to take his oral antibiotics consistently due to his N/V. Will continue with IV antibiotics and he still has some N/V due to diabetic gastroperesis. We will also start him on Metoclopamide for gastroparesis QAC and QHS. - Problems/Diagnosis (1) MRSA (methicillin resistant Staphylococcus aureus) infection Problem: Acute (2) Nausea & vomiting Problem: Acute Qualifiers: Vomiting Intractability: non-intractable (3) Diabetic gastroparesis Problem: Chronic (4) Dehydration Problem: Acute (5) Sepsis due to urinary tract infection Problem: Resolved (6) Indwelling urinary catheter present Problem: Acute (7) Urinary retention Problem: Acute (8) CAD (coronary artery disease) Problem: Chronic Qualifiers: Coronary Disease-Associated Artery/Lesion type: [place] artery [place] vs. transplanted heart: [place] heart Associated angina: without angina Qualified Code(s): I25.10 - Atherosclerotic heart disease of [place] coronary artery without angina pectoris (9) COPD (chronic obstructive pulmonary disease) Problem: Chronic Qualifiers: COPD type: unspecified COPD Qualified Code(s): J44.9 - Chronic obstructive pulmonary disease, unspecified (10) Diabetes mellitus Problem: Chronic Qualifiers: Diabetes mellitus type: type 2 Diabetes mellitus intermediate designer insulin use: with intermediate designer use Diabetes mellitus complication status: with neurologic complications Diabetes mellitus complication detail: with polyneuropathy Qualified Code(s): E11.42 - Type 2 diabetes mellitus with diabetic polyneuropathy (11) Hyperlipidemia Problem: Chronic Qualifiers: Hyperlipidemia type: pure hypercholesterolemia Qualified Code(s): E78.00 - Pure hypercholesterolemia, unspecified; E78.0 - Pure hypercholesterolemia (12) Hypertension Problem: Chronic Qualifiers: Hypertension type: essential hypertension Qualified Code(s): I10 - Essential (primary) hypertension (13) Low back pain Problem: Chronic Qualifiers: Chronicity: chronic Back pain laterality: unspecified Sciatica presence: unspecified whether sciatica present Qualified Code(s): M54.5 - Low back pain; G89.29 - Other chronic pain (14) Neck pain Problem: Chronic
[2018-12-23] MEDS: METOCLOPRAMIDE HCL 5 MG TABLET PO SCH ×2 (17:18→20:23)
[2018-12-23] MEDS: DOXAZOSIN MESYLATE 2 MG TABLET PO SCH (21:41)
[2018-12-23] MEDS: FINASTERIDE 5 MG TABLET PO SCH (21:42)
[2018-12-23] MEDS: ROSUVASTATIN CALCIUM 10 MG TABLET PO SCH (21:42)
[2018-12-23] MEDS: MONTELUKAST SODIUM 10 MG TABLET PO SCH (21:45)
[2018-12-24] MEDS: ONDANSETRON 4 MG TAB.RAPDIS PO PRN (02:20)
[2018-12-24] MEDS: ACETAMINOPHEN 325 MG TABLET PO PRN (02:20)
[2018-12-24] MEDS: NORMAL SALINE 1,000 ML IV PRN ×3 (02:27→22:48)
[2018-12-24] MEDS: FAMOTIDINE 20 MG in DEXTROSE 5 % IN WATER 100 ML IV SCH ×2 (03:42)
[2018-12-24] MEDS: SULFAMETHOXAZOLE/TRIMETHOPRIM 10 ML in DEXTROSE 5 % IN WATER 250 ML IV SCH ×8 (04:07→22:43)
[2018-12-24] MEDS: ALBUTEROL SULFATE 2.5 MG/0.5 ML VIAL.NEB IH SCH ×5 (06:07→18:20)
[2018-12-24 07:13] LABS: Hematocrit 32.2 % (42.0-52.0); Hemoglobin 11.1 gm/dL (13.5-18.0); Mean Cell Volume 84.7 fl (78-100); Mean Corpuscular Hemoglobin 29.2 pg (27-31); Mean Corpuscular Hgb Conc 34.5 g/dl (32-36); Platelet Count 266 K/mm3 (150-450); Red Cell Distribution Width 12.8 % (11.5-14.0); White Blood Count 23.2 K/mm3 (4.0-10.5)
[2018-12-24 07:14] LABS: Total Cells Counted 100
[2018-12-24 07:16] LABS: Anion Gap 12.2 mmol/L (6.8-13.8); BUN/Creatinine Ratio 18.6 (9.0-21.6); Calcium * 8.4 mg/dL (7.9-10.9); Estimated Creat Clear 99.5; Potassium 3.2 mmol/L (3.4-4.6)
[2018-12-24 07:24] LABS: Lymphocyte 2 % (20-51); Monocyte 3 % (0-9); Neutrophil 95 % (42-75); Platelet Estimate Normal (NORMAL); RBC Morphology Normal (NORMAL)
[2018-12-24] MEDS: METOCLOPRAMIDE HCL 5 MG TABLET PO SCH ×2 (07:36→10:11)
[2018-12-24] MEDS: INSULIN GLARGINE,HUM.REC.ANLOG 100 UNITS/ML VIAL SC SCH (07:37)
[2018-12-24] MEDS ORDERED: POTASSIUM CHLORIDE 20 MEQ TABLET.SA PO ONE ×2 (07:56→09:15)
--- NOTE | 2018-12-24 08:44 | PN ---
Subjective - Date and Time Seen Date: 12/24/18 Time: 08:29 Subjective Narrative: patient is worried his clothes are not in the closet. he has been having episodes of N/V. will change reglan to IV. WBC is up. Objective - Review of Systems Generalized/Overall Review: Reports: Weakness. Denies: Chills, Fever EENTM: Denies: Blurred Vision Respiratory: Denies: Cough, Shortness of Breath Cardiac: Denies: Chest Pain, Edema, Palpitations Abdominal: Reports: Nausea, Vomiting. Denies: Abdominal Pain Genitourinary Symptoms: Denies: Urgency, Frequency Musculoskeletal Complaints: Reports: Joint Pain, Back Pain, Neck Pain Neurological: Denies: Headache Skin: Denies: Lesions, Rash Endocrine: Denies: Intolerance to Cold, Intolerance to Heat Misc: All systems neg except as marked - Vitals Vitals: Last Vital Signs Temp 36.5 C 12/24/18 06:55 Pulse 104 H 12/24/18 06:55 Resp 16 12/24/18 06:55 BP 158/84 H 12/24/18 06:55 Pulse Ox 97 12/24/18 06:55 - Abnormal Lab Findings Abnormal Lab Findings: Abnormal Lab Results 12/24/18 12/24/18 Range/Units 06:57 06:57 WBC 23.2 H (4.0-10.5) K/mm3 RBC 3.80 L (4.7-6.0) M/mm3 Hgb 11.1 L (13.5-18.0) gm/dL Hct 32.2 L (42.0-52.0) % Neutrophils % (Manual) 95 H (42-75) % Lymphocytes % (Manual) 2 L (20-51) % Neutrophils # (Manual) 22.0 H (1.3-6.0) K/mm3 Lymphocytes # (Manual) 0.5 L (1.5-3.5) k/mm3 Potassium 3.2 L (3.4-4.6) mmol/L Est GFR (Non-Af Amer) 140 H (60-130) mL/min Random Glucose 261 H (70-110) mg/dL - Exam Constitutional: Present: Alert, Oriented x3, Cooperative ENT Exam: Present: hearing grossly normal Neck: Present: limited range of motion. Absent: lymphadenopathy (R), lymphadenopathy (L) Respiratory: Present: decreased breath sounds, No rales, No wheezing Cardiovascular/Chest: Present: regular rate, rhythm, no JVD, no murmur Abdomen: Present: Normal bowel sounds, soft, nontender, nondistended Extremity: Present: no pedal edema, no calf tenderness Cauti Physician Documentation - Urinary Catheter Management Urethral (Olsen) Date of Insertion: 12/22/18 Time of Insertion: 16:26 Assessment/Plan Plan Narrative: Jake continues to have intermittent nausea and vomiting. We will change his Reglan from p.o. to IV. His white blood cell count is up to 23. His repeat culture and sensitivity on admission of his urine again grew MRSA which was sensitive to Bactrim. We changed his linezolid to IV Bactrim yesterday as it was more sensitive to Bactrim than linezolid and his his WBC did not change significantly. If white blood cell count does not start getting better will likely change to IV doxycycline per sensitivity. Once his N/V gets better, will transition to oral antibiotics again. He recently had cystoscopy for his urinary retention necessitating chronic indwelling Olsen catheter and the plan is that if he does not improve to think about TURP. - Problems/Diagnosis (1) Leukocytosis Problem: Acute Qualifiers: Leukocytosis type: leukemoid reaction Qualified Code(s): D72.823 - Leukemoid reaction (2) MRSA (methicillin resistant Staphylococcus aureus) infection Problem: Acute (3) Nausea & vomiting Problem: Acute Qualifiers: Vomiting Intractability: non-intractable (4) Diabetic gastroparesis Problem: Chronic (5) Dehydration Problem: Acute (6) Sepsis due to urinary tract infection Problem: Resolved (7) Indwelling urinary catheter present Problem: Acute (8) Urinary retention Problem: Acute (9) CAD (coronary artery disease) Problem: Chronic Qualifiers: Coronary Disease-Associated Artery/Lesion type: elem artery [place] vs. transplanted heart: elem heart Associated angina: without angina Qualified Code(s): I25.10 - Atherosclerotic heart disease of [place] coronary artery without angina pectoris (10) COPD (chronic obstructive pulmonary disease) Problem: Chronic Qualifiers: COPD type: unspecified COPD Qualified Code(s): J44.9 - Chronic obstructive pulmonary disease, unspecified (11) Diabetes mellitus Problem: Chronic Qualifiers: Diabetes mellitus type: type 2 Diabetes mellitus intermediate accountant insulin use: with halfway use Diabetes mellitus complication status: with neurologic complications Diabetes mellitus complication detail: with polyneuropathy Qualified Code(s): E11.42 - Type 2 diabetes mellitus with diabetic polyneuropathy (12) Hyperlipidemia Problem: Chronic Qualifiers: Hyperlipidemia type: pure hypercholesterolemia Qualified Code(s): E78.00 - Pure hypercholesterolemia, unspecified; E78.0 - Pure hypercholesterolemia (13) Hypertension Problem: Chronic Qualifiers: Hypertension type: essential hypertension Qualified Code(s): I10 - Essential (primary) hypertension (14) Low back pain Problem: Chronic Qualifiers: Chronicity: chronic Back pain laterality: unspecified Sciatica presence: unspecified whether sciatica present Qualified Code(s): M54.5 - Low back pain; G89.29 - Other chronic pain (15) Neck pain Problem: Chronic
[2018-12-24] MEDS: GABAPENTIN 400 MG CAPSULE PO SCH ×3 (08:53→16:26)
[2018-12-24] MEDS: ASPIRIN 325 MG TABLET.DR PO SCH (08:53)
[2018-12-24] MEDS: CLOPIDOGREL BISULFATE 75 MG TABLET PO SCH (08:53)
[2018-12-24] MEDS: METOPROLOL TARTRATE 50 MG TABLET PO SCH ×2 (08:54→20:11)
[2018-12-24] MEDS: amLODIPine BESYLATE 5 MG TABLET PO SCH (08:54)
[2018-12-24] MEDS: ESCITALOPRAM OXALATE 10 MG TAB PO SCH (08:54)
[2018-12-24] MEDS: ARGININE PO SCH ×2 (08:55→20:07)
[2018-12-24] MEDS: FLUTICASONE PROPION/SALMETEROL 14 PUFF DISK.W.DEV IH SCH ×2 (08:55→20:06)
[2018-12-24] MEDS: DOCUSATE SODIUM 100 MG CAPSULE PO SCH (08:55)
[2018-12-24] MEDS: ASCORBATE SOD PO SCH ×2 (08:55→20:07)
[2018-12-24] MEDS: VITE AC PO SCH ×2 (08:55→20:07)
[2018-12-24] MEDS ORDERED: POTASSIUM CHLORIDE 20 MEQ TABLET.SA ONE (09:01)
[2018-12-24] MEDS ORDERED: METOCLOPRAMIDE HCL 5 MG/ML VIAL IV PRN (10:50)
[2018-12-24] MEDS: METOCLOPRAMIDE HCL 5 MG/ML VIAL IV SCH ×3 (11:14→22:43)
[2018-12-24] MEDS: fentaNYL 25 MCG PATCH.TD72 TD SCH (20:03)
[2018-12-24] MEDS: DOXAZOSIN MESYLATE 2 MG TABLET PO SCH (20:08)
[2018-12-24] MEDS: FAMOTIDINE 20 MG TABLET PO SCH (20:09)
[2018-12-24] MEDS: ROSUVASTATIN CALCIUM 10 MG TABLET PO SCH (20:10)
[2018-12-24] MEDS: FINASTERIDE 5 MG TABLET PO SCH (20:10)
[2018-12-24] MEDS: MONTELUKAST SODIUM 10 MG TABLET PO SCH (20:11)
[2018-12-25] MEDS: ACETAMINOPHEN 325 MG TABLET PO PRN ×2 (03:23→23:17)
[2018-12-25] MEDS: METOCLOPRAMIDE HCL 5 MG/ML VIAL IV SCH ×4 (04:22→22:35)
[2018-12-25] MEDS: SULFAMETHOXAZOLE/TRIMETHOPRIM 10 ML in DEXTROSE 5 % IN WATER 250 ML IV SCH ×8 (04:26→22:46)
[2018-12-25 06:19] LABS: Hematocrit 26.8 % (42.0-52.0); Hemoglobin 9.1 gm/dL (13.5-18.0); Mean Cell Volume 85.1 fl (78-100); Mean Corpuscular Hemoglobin 28.9 pg (27-31); Neutrophil # 12.8 K/mm3 (1.3-6.0); Platelet Count 222 K/mm3 (150-450); Red Blood Count 3.15 M/mm3 (4.7-6.0); Red Cell Distribution Width 13.2 % (11.5-14.0); White Blood Count 15.2 K/mm3 (4.0-10.5)
[2018-12-25 06:28] LABS: Anion Gap 12.9 mmol/L (6.8-13.8); BUN/Creatinine Ratio 19.2 (9.0-21.6); Calcium * 7.8 mg/dL (7.9-10.9); Carbon Dioxide 24.9 mmol/L (24-32.6); Estimated Creat Clear 89.3; Potassium 3.8 mmol/L (3.4-4.6)
[2018-12-25] MEDS: ALBUTEROL SULFATE 2.5 MG/0.5 ML VIAL.NEB IH SCH ×4 (06:28→18:00)
[2018-12-25] MEDS: INSULIN GLARGINE,HUM.REC.ANLOG 100 UNITS/ML VIAL SC SCH (09:51)
[2018-12-25] MEDS: CLOPIDOGREL BISULFATE 75 MG TABLET PO SCH (09:52)
[2018-12-25] MEDS: GABAPENTIN 400 MG CAPSULE PO SCH ×3 (09:52→16:50)
[2018-12-25] MEDS: ASCORBATE SOD PO SCH ×2 (09:52→20:36)
[2018-12-25] MEDS: FLUTICASONE PROPION/SALMETEROL 14 PUFF DISK.W.DEV IH SCH ×2 (09:52→20:36)
[2018-12-25] MEDS: ARGININE PO SCH ×2 (09:52→20:36)
[2018-12-25] MEDS: ESCITALOPRAM OXALATE 10 MG TAB PO SCH (09:52)
[2018-12-25] MEDS: METOPROLOL TARTRATE 50 MG TABLET PO SCH ×2 (09:52→20:37)
[2018-12-25] MEDS: FAMOTIDINE 20 MG TABLET PO SCH ×2 (09:52→20:38)
[2018-12-25] MEDS: amLODIPine BESYLATE 5 MG TABLET PO SCH (09:52)
[2018-12-25] MEDS: ASPIRIN 325 MG TABLET.DR PO SCH (09:52)
[2018-12-25] MEDS: VITE AC PO SCH ×2 (09:52→20:36)
[2018-12-25] MEDS: DOCUSATE SODIUM 100 MG CAPSULE PO SCH (09:52)
[2018-12-25] MEDS: NORMAL SALINE 1,000 ML IV PRN ×2 (11:05→22:36)
--- NOTE | 2018-12-25 12:34 | PN ---
Subjective - Date and Time Seen Date: 12/25/18 Time: 09:40 Subjective Narrative: Jake Lawler is a 78-year-old patient of Dr. Martinez who was admitted for urinary tract infection, vomiting, failed outpatient therapy. He states she is feeling some better today. He is answering questions appropriately. Labs shows his white count has improved down to 15,200. The hemoglobin has dropped 2 g down to 9.1 g. Potassium has improved to 3.8. His glucose has improved to 242 which of course is still too high. His albumin is low at 2.4 yesterday and his calcium of course is also low. His treatment course is in progress and no changes are to be made. Objective - Review of Systems Generalized/Overall Review: Reports: Weakness EENTM: Reports: No Symptoms Reported Respiratory: Reports: No Symptoms Reported Cardiac: Reports: No Symptoms Reported Abdominal: Reports: No Symptoms Reported Genitourinary Symptoms: Reports: No Symptoms Reported Musculoskeletal Complaints: Reports: Other - Complains of diffuse body aches Neurological: Reports: No Symptoms Reported Skin: Reports: No Symptoms Reported Endocrine: Reports: No Symptoms Reported - Vitals Vitals: Last Vital Signs Temp 36.5 C 12/25/18 10:00 Pulse 89 12/25/18 10:00 Resp 20 12/25/18 10:00 BP 146/77 12/25/18 10:00 Pulse Ox 96 12/25/18 10:00 - Abnormal Lab Findings Abnormal Lab Findings: Abnormal Lab Results 12/25/18 12/25/18 Range/Units 06:00 06:00 WBC 15.2 H D (4.0-10.5) K/mm3 RBC 3.15 L (4.7-6.0) M/mm3 Hgb 9.1 L (13.5-18.0) gm/dL Hct 26.8 L (42.0-52.0) % Immature Gran % (Auto) 1.60 H (0.001-0.429) % Immature Gran # (Auto) 0.24 H (0.000-0.0310) K/mm3 Neutrophils % 84.0 H (42-75.0) % Lymphocytes % 6.0 L (20-51) % Neutrophils # 12.8 H (1.3-6.0) K/mm3 Lymphocytes # 0.92 L (1.5-3.5) k/mm3 Monocytes # 1.2 H (0.0-1.0) k/mm3 Random Glucose 242 H (70-110) mg/dL Calcium 7.8 L (7.9-10.9) mg/dL - Exam Constitutional: Present: Alert, Oriented x3, Cooperative, Well developed, Well nourished, No distress ENT Exam: Present: normal ENT inspection, hearing grossly normal, pharynx normal Neck: Present: non-tender, full range of motion, supple, normal inspection Breasts: Present: Exam deferred Respiratory: Present: chest non-tender, lungs clear, normal breath sounds, no respiratory distress, no accessory muscle use Cardiovascular/Chest: Present: normal peripheral pulses, regular rate, rhythm, no chest tenderness, no edema, no gallop, no JVD, no murmur, no rub Abdomen: Present: Normal bowel sounds, soft, nontender /Rectal: Present: Exam deferred Extremity: Present: normal range of motion, non-tender, normal inspection, no pedal edema, no calf tenderness, normal capillary refill Skin Exam: Present: normal color, warm/dry, no cyanosis Lymphatic: Present: no adenopathy Neurologic: Present: 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, normal cerebellar test, no motor/sensory deficits, alert, normal mood/affect Appearance: Present: appropriate appearance, neat, denies illness, disheveled, impaired insight, impaired recent memory Eye contact: Present: cooperative, good eye contact, normal speech Thoughts: Present: normal thought pattern, no apparent hallucination Cauti Physician Documentation - Urinary Catheter Management Urethral (Olsen) Urethral Indwelling: Yes Reason for Continuing Indwelling Catheter: Other - Prostatism with bladder outlet obstruction Date of Insertion: 12/22/18 Time of Insertion: 16:26 Assessment/Plan Plan Narrative: 1. Repeat lab tomorrow morning with CBC and CMP 2. 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
[2018-12-25] MEDS: ROSUVASTATIN CALCIUM 10 MG TABLET PO SCH (20:36)
[2018-12-25] MEDS: DOXAZOSIN MESYLATE 2 MG TABLET PO SCH (20:37)
[2018-12-25] MEDS: MONTELUKAST SODIUM 10 MG TABLET PO SCH (20:38)
[2018-12-25] MEDS: FINASTERIDE 5 MG TABLET PO SCH (20:39)
[2018-12-26] MEDS: SULFAMETHOXAZOLE/TRIMETHOPRIM 10 ML in DEXTROSE 5 % IN WATER 250 ML IV SCH ×8 (03:57→22:45)
[2018-12-26] MEDS: METOCLOPRAMIDE HCL 5 MG/ML VIAL IV SCH ×4 (04:00→22:49)
[2018-12-26] MEDS: ACETAMINOPHEN 325 MG TABLET PO PRN (05:07)
[2018-12-26] MEDS: ALBUTEROL SULFATE 2.5 MG/0.5 ML VIAL.NEB IH SCH ×5 (05:20→19:47)
[2018-12-26 05:59] LABS: Hematocrit 26.2 % (42.0-52.0); Hemoglobin 8.8 gm/dL (13.5-18.0); Mean Cell Volume 85.6 fl (78-100); Mean Corpuscular Hemoglobin 28.8 pg (27-31); Mean Corpuscular Hgb Conc 33.6 g/dl (32-36); Mean Platelet Volume 10.7 fl (8-11.3); Neutrophil # 16.3 K/mm3 (1.3-6.0); Neutrophil % 84.3 % (42-75.0); Platelet Count 209 K/mm3 (150-450); Red Blood Count 3.06 M/mm3 (4.7-6.0); Red Cell Distribution Width 13.5 % (11.5-14.0); White Blood Count 19.3 K/mm3 (4.0-10.5)
[2018-12-26] MEDS: NORMAL SALINE 1,000 ML IV PRN ×2 (07:30→18:33)
[2018-12-26] MEDS: INSULIN GLARGINE,HUM.REC.ANLOG 100 UNITS/ML VIAL SC SCH (09:00)
[2018-12-26] MEDS: FLUTICASONE PROPION/SALMETEROL 14 PUFF DISK.W.DEV IH SCH ×2 (09:00→20:15)
[2018-12-26] MEDS: DOCUSATE SODIUM 100 MG CAPSULE PO SCH (09:38)
[2018-12-26] MEDS: ASPIRIN 325 MG TABLET.DR PO SCH (09:38)
[2018-12-26] MEDS: ESCITALOPRAM OXALATE 10 MG TAB PO SCH (09:39)
[2018-12-26] MEDS: GABAPENTIN 400 MG CAPSULE PO SCH ×3 (09:39→16:48)
[2018-12-26] MEDS: METOPROLOL TARTRATE 50 MG TABLET PO SCH ×2 (09:39→20:18)
[2018-12-26] MEDS: amLODIPine BESYLATE 5 MG TABLET PO SCH (09:40)
[2018-12-26] MEDS: CLOPIDOGREL BISULFATE 75 MG TABLET PO SCH (09:40)
[2018-12-26] MEDS: FAMOTIDINE 20 MG TABLET PO SCH ×2 (09:40→20:17)
[2018-12-26 10:36] LABS: Albumin * 2.3 gm/dl (3.4-5.0); Anion Gap 11.5 mmol/L (6.8-13.8); Bilirubin, Total 0.3 mg/dL (0.0-1.1); Ca. Corrected For Albumin 8.6 mg/dL (8.4-10.2); Calcium * 7.6 mg/dL (7.9-10.9); Carbon Dioxide 23.2 mmol/L (24-32.6); Potassium 3.7 mmol/L (3.4-4.6); Total Protein 5.6 gm/dL (6.2-8.2)
[2018-12-26] MEDS: VITE AC PO SCH ×2 (10:38→20:19)
[2018-12-26] MEDS: ASCORBATE SOD PO SCH ×2 (10:38→20:19)
[2018-12-26] MEDS: ARGININE PO SCH ×2 (10:38→20:19)
[2018-12-26 11:02] LABS: Total Cells Counted 100
[2018-12-26 11:37] LABS: Lymphocyte 7 % (20-51); Monocyte 8 % (0-9); Neutrophil 85 % (42-75); Neutrophil # 16.4 K/mm3 (1.3-6.0); Platelet Estimate Normal (NORMAL); RBC Morphology Normal (NORMAL)
--- NOTE | 2018-12-26 13:17 | PN ---
Subjective - Date and Time Seen Date: 12/26/18 Time: 10:30 Subjective Narrative: Mr. Lawler is sitting up and appears to be feeling about the same as yesterday. He is complaining of double vision this morning which he has never had before. He is in no distress this morning. He has had no more vomiting. This morning lab shows hemoglobin is dropped to 9.3 g and his white count has jumped back up to 19,300. His sodium is dropped to 127. Glucose is 191 and albumin has dropped to 2.3. Objective - Review of Systems Generalized/Overall Review: Reports: Weakness EENTM: Reports: Double Vision Respiratory: Reports: No Symptoms Reported Cardiac: Reports: No Symptoms Reported Abdominal: Reports: No Symptoms Reported Genitourinary Symptoms: Reports: No Symptoms Reported Musculoskeletal Complaints: Reports: Back Pain - Low back Neurological: Reports: No Symptoms Reported Skin: Reports: No Symptoms Reported Endocrine: Reports: No Symptoms Reported - Vitals Vitals: Last Vital Signs Temp 36.5 C 12/26/18 11:22 Pulse 88 12/26/18 11:22 Resp 16 12/26/18 11:22 BP 140/78 12/26/18 11:22 Pulse Ox 96 12/26/18 11:22 - Abnormal Lab Findings Abnormal Lab Findings: Abnormal Lab Results 12/26/18 12/26/18 Range/Units 06:00 06:00 WBC 19.3 H D (4.0-10.5) K/mm3 RBC 3.06 L (4.7-6.0) M/mm3 Hgb 8.8 L (13.5-18.0) gm/dL Hct 26.2 L (42.0-52.0) % Immature Gran % (Auto) 1.30 H (0.001-0.429) % Immature Gran # (Auto) 0.25 H (0.000-0.0310) K/mm3 Neutrophils % 84.3 H (42-75.0) % Neutrophils % (Manual) 85 H (42-75) % Lymphocytes % 5.0 L (20-51) % Lymphocytes % (Manual) 7 L (20-51) % Neutrophils # 16.3 H (1.3-6.0) K/mm3 Neutrophils # (Manual) 16.4 H (1.3-6.0) K/mm3 Lymphocytes # 0.97 L (1.5-3.5) k/mm3 Lymphocytes # (Manual) 1.4 L (1.5-3.5) k/mm3 Monocytes # 1.6 H (0.0-1.0) k/mm3 Monocytes # (Manual) 1.5 H (0.0-1.0) k/mm3 Sodium 127 L (132-142) mmol/L Plasma Sodium 128 L (130-142) mmol/L Chloride 96 L (97-106) mmol/L Carbon Dioxide 23.2 L (24-32.6) mmol/L Random Glucose 191 H (70-110) mg/dL Calcium 7.6 L (7.9-10.9) mg/dL ALT 14 L (19-67) U/L Total Protein 5.6 L (6.2-8.2) gm/dL Albumin 2.3 L (3.4-5.0) gm/dl - Exam Constitutional: Present: Alert, Oriented x3, Cooperative, Well developed, Well nourished, Mild distress ENT Exam: Present: normal ENT inspection, hearing grossly normal Neck: Present: non-tender, full range of motion, supple, normal inspection, trachea midline, limited range of motion Respiratory: Present: chest non-tender, lungs clear, normal breath sounds, no respiratory distress, no accessory muscle use Cardiovascular/Chest: Present: normal peripheral pulses, regular rate, rhythm, no chest tenderness, no edema Abdomen: Present: Normal bowel sounds, soft, nontender, nondistended, no rebound tenderness, no hepatospenomegaly, no masses /Rectal: Present: Exam deferred, External genitalia normal, discharge, hemorrhoids Extremity: Present: normal range of motion, non-tender, normal inspection, no pedal edema, no calf tenderness Skin Exam: Present: normal color, warm/dry, no cyanosis Lymphatic: Present: no adenopathy 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 Anticipate the diplopia will self resolve but if it has not by tomorrow then he may need some CT imaging of his head. 2. Recheck morning labs CBC and CMP 3. Case management working on placement for Mr. campa 4. Normal saline 1 L IV piggyback over [address] Martinez to assume medical management tomorrow morning. 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
[2018-12-26] MEDS: MONTELUKAST SODIUM 10 MG TABLET PO SCH (20:17)
[2018-12-26] MEDS: FINASTERIDE 5 MG TABLET PO SCH (20:18)
[2018-12-26] MEDS: DOXAZOSIN MESYLATE 2 MG TABLET PO SCH (20:18)
[2018-12-26] MEDS: ROSUVASTATIN CALCIUM 10 MG TABLET PO SCH (20:18)
[2018-12-26] MEDS ORDERED: OLANZapine 5 MG TABLET PO ONE (20:30)
[2018-12-27] MEDS: NORMAL SALINE 1,000 ML IV PRN ×2 (02:40→10:24)
[2018-12-27] MEDS: SULFAMETHOXAZOLE/TRIMETHOPRIM 10 ML in DEXTROSE 5 % IN WATER 250 ML IV SCH ×8 (04:55→23:11)
[2018-12-27] MEDS: METOCLOPRAMIDE HCL 5 MG/ML VIAL IV SCH (04:57)
[2018-12-27] MEDS: ALBUTEROL SULFATE 2.5 MG/0.5 ML VIAL.NEB IH SCH ×4 (06:18→18:03)
[2018-12-27 06:26] LABS: Hematocrit 25.4 % (42.0-52.0); Hemoglobin 8.8 gm/dL (13.5-18.0); Mean Cell Volume 83.8 fl (78-100); Mean Corpuscular Hgb Conc 34.6 g/dl (32-36); Mean Platelet Volume 10.4 fl (8-11.3); Neutrophil # 13.5 K/mm3 (1.3-6.0); Neutrophil % 84.6 % (42-75.0); Platelet Count 206 K/mm3 (150-450); Red Blood Count 3.03 M/mm3 (4.7-6.0); Red Cell Distribution Width 13.5 % (11.5-14.0)
[2018-12-27 06:39] LABS: Albumin * 2.1 gm/dl (3.4-5.0); Anion Gap 11.8 mmol/L (6.8-13.8); BUN/Creatinine Ratio 20.3 (9.0-21.6); Bilirubin, Total 0.3 mg/dL (0.0-1.1); Ca. Corrected For Albumin 8.8 mg/dL (8.4-10.2); Calcium * 7.6 mg/dL (7.9-10.9); Potassium 3.8 mmol/L (3.4-4.6); Total Protein 5.2 gm/dL (6.2-8.2)
--- NOTE | 2018-12-27 09:16 | PN ---
Subjective - Date and Time Seen Date: 12/27/18 Time: 08:57 Subjective Narrative: patient is AAO x 1 and confused. lab called and said that his BC is showing Strep Viridans. He is pouting his lips. Objective - Review of Systems Misc: All systems neg except as marked - ROS is unrelibale due to his confusion - Vitals Vitals: Last Vital Signs Temp 37.0 C 12/27/18 06:42 Pulse 86 12/27/18 06:42 Resp 18 12/27/18 06:42 BP 133/72 12/27/18 06:42 Pulse Ox 96 12/27/18 06:42 - Abnormal Lab Findings Abnormal Lab Findings: Abnormal Lab Results 12/26/18 12/26/18 12/27/18 Range/Units 06:00 06:00 06:19 WBC 19.3 H D 16.0 H (4.0-10.5) K/mm3 RBC 3.06 L 3.03 L (4.7-6.0) M/mm3 Hgb 8.8 L 8.8 L (13.5-18.0) gm/dL Hct 26.2 L 25.4 L (42.0-52.0) % Immature Gran % (Auto) 1.30 H 0.90 H (0.001-0.429) % Immature Gran # (Auto) 0.25 H 0.14 H (0.000-0.0310) K/mm3 Neutrophils % 84.3 H 84.6 H (42-75.0) % Neutrophils % (Manual) 85 H (42-75) % Lymphocytes % 5.0 L 6.3 L (20-51) % Lymphocytes % (Manual) 7 L (20-51) % Neutrophils # 16.3 H 13.5 H (1.3-6.0) K/mm3 Neutrophils # (Manual) 16.4 H (1.3-6.0) K/mm3 Lymphocytes # 0.97 L 1.00 L (1.5-3.5) k/mm3 Lymphocytes # (Manual) 1.4 L (1.5-3.5) k/mm3 Monocytes # 1.6 H (0.0-1.0) k/mm3 Monocytes # (Manual) 1.5 H (0.0-1.0) k/mm3 Sodium 127 L (132-142) mmol/L Plasma Sodium 128 L (130-142) mmol/L Chloride 96 L (97-106) mmol/L Carbon Dioxide 23.2 L (24-32.6) mmol/L Est GFR (Non-Af Amer) (60-130) mL/min Random Glucose 191 H (70-110) mg/dL Calcium 7.6 L (7.9-10.9) mg/dL ALT 14 L (19-67) U/L Total Protein 5.6 L (6.2-8.2) gm/dL Albumin 2.3 L (3.4-5.0) gm/dl 12/27/18 Range/Units 06:19 WBC (4.0-10.5) K/mm3 RBC (4.7-6.0) M/mm3 Hgb (13.5-18.0) gm/dL Hct (42.0-52.0) % Immature Gran % (Auto) (0.001-0.429) % Immature Gran # (Auto) (0.000-0.0310) K/mm3 Neutrophils % (42-75.0) % Neutrophils % (Manual) (42-75) % Lymphocytes % (20-51) % Lymphocytes % (Manual) (20-51) % Neutrophils # (1.3-6.0) K/mm3 Neutrophils # (Manual) (1.3-6.0) K/mm3 Lymphocytes # (1.5-3.5) k/mm3 Lymphocytes # (Manual) (1.5-3.5) k/mm3 Monocytes # (0.0-1.0) k/mm3 Monocytes # (Manual) (0.0-1.0) k/mm3 Sodium 128 L (132-142) mmol/L Plasma Sodium 128 L (130-142) mmol/L Chloride (97-106) mmol/L Carbon Dioxide 23.0 L (24-32.6) mmol/L Est GFR (Non-Af Amer) 155 H D (60-130) mL/min Random Glucose 115 H D (70-110) mg/dL Calcium 7.6 L (7.9-10.9) mg/dL ALT 15 L (19-67) U/L Total Protein 5.2 L (6.2-8.2) gm/dL Albumin 2.1 L (3.4-5.0) gm/dl - Exam Constitutional: Present: Alert - AAO x 1, Elderly ENT Exam: Present: hearing grossly normal Neck: Present: limited range of motion. 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 His AMS could be multifactoirial- delirium, hyponatremia, He has pouting and chewing with his mouth. Tardive dyskinesia is suspected and we will stop his metoclopramide. If he continues to have vomiting we will do erythromycin to 50 mg p.o. 3 times daily before each meal for his diabetic gastroparesis. His urinary retention likely is due to BPH as after speaking with urology who did a cystoscopy 1 and 1/2 weeks ago that if he is not improving he was considering doing a TURP. His urinary retention could also be neurogenic due to his diabetes or possible spinal stenosis. He was told before in the past in [facility] that he was not a surgical candidate for his lower back. He had cervical fusion at that time of his neck. His blood culture is growing Streptococcus viridans x1 bottle. We will get an echocardiogram today. He has no other signs of bacterial endocarditis. We might however increase his Rocephin dose if there is any suspicious echocardiogram findings. We will also stop his Lexapro as it can cause euovolemic, hypotnic, hyponatremia likely SIADH and interact with metoclopramide. - Problems/Diagnosis (1) AMS (altered mental status) Problem: Acute Qualifiers: Altered mental status type: delirium Qualified Code(s): R41.0 - Disorientation, unspecified (2) Hyponatremia Problem: Acute (3) Tardive dyskinesia Problem: Suspected (4) Leukocytosis Problem: Acute Qualifiers: Leukocytosis type: leukemoid reaction Qualified Code(s): D72.823 - Le ukemoid reaction (5) MRSA (methicillin resistant Staphylococcus aureus) infection Problem: Acute (6) Nausea & vomiting Problem: Acute Qualifiers: Vomiting Intractability: non-intractable (7) Diabetic gastroparesis Problem: Chronic (8) Dehydration Problem: Acute (9) Sepsis due to urinary tract infection Problem: Resolved (10) Indwelling urinary catheter present Problem: Acute (11) Urinary retention Problem: Acute (12) CAD (coronary artery disease) Problem: Chronic Qualifiers: Coronary Disease-Associated Artery/Lesion type: [place] artery [place] vs. transplanted heart: [place] heart Associated angina: without angina Qualified Code(s): I25.10 - Atherosclerotic heart disease of [place] coronary artery without angina pectoris (13) COPD (chronic obstructive pulmonary disease) Problem: Chronic Qualifiers: COPD type: unspecified COPD Qualified Code(s): J44.9 - Chronic obstructive pulmonary disease, unspecified (14) Diabetes mellitus Problem: Chronic Qualifiers: Diabetes mellitus type: type 2 Diabetes mellitus snf insulin use: with manager terminal use Diabetes mellitus complication status: with neurologic complications Diabetes mellitus complication detail: with polyneuropathy Qualified Code(s): E11.42 - Type 2 diabetes mellitus with diabetic polyneuropathy (15) Hyperlipidemia Problem: Chronic Qualifiers: Hyperlipidemia type: pure hypercholesterolemia Qualified Code(s): E78.00 - Pure hypercholesterolemia, unspecified; E78.0 - Pure hypercholesterolemia (16) Hypertension Problem: Chronic Qualifiers: Hypertension type: essential hypertension Qualified Code(s): I10 - Essential (primary) hypertension (17) Low back pain Problem: Chronic Qualifiers: Chronicity: chronic Back pain laterality: unspecified Sciatica presence: unspecified whether sciatica present Qualified Code(s): M54.5 - Low back pain; G89.29 - Other chronic pain (18) Neck pain Problem: Chronic
[2018-12-27] MEDS: INSULIN GLARGINE,HUM.REC.ANLOG 100 UNITS/ML VIAL SC SCH (10:14)
[2018-12-27] MEDS: amLODIPine BESYLATE 5 MG TABLET PO SCH (10:15)
[2018-12-27] MEDS: ASPIRIN 325 MG TABLET.DR PO SCH (10:15)
[2018-12-27] MEDS: CLOPIDOGREL BISULFATE 75 MG TABLET PO SCH (10:16)
[2018-12-27] MEDS: DOCUSATE SODIUM 100 MG CAPSULE PO SCH (10:16)
[2018-12-27] MEDS: FAMOTIDINE 20 MG TABLET PO SCH ×2 (10:16→20:31)
[2018-12-27] MEDS: GABAPENTIN 400 MG CAPSULE PO SCH ×3 (10:16→16:37)
[2018-12-27] MEDS: METOPROLOL TARTRATE 50 MG TABLET PO SCH ×2 (10:16→20:32)
[2018-12-27] MEDS: FLUTICASONE PROPION/SALMETEROL 14 PUFF DISK.W.DEV IH SCH ×2 (10:17→20:31)
[2018-12-27] MEDS: ASCORBATE SOD PO SCH ×2 (10:17→20:33)
[2018-12-27] MEDS: VITE AC PO SCH ×2 (10:17→20:33)
[2018-12-27] MEDS: ARGININE PO SCH ×2 (10:17→20:33)
[2018-12-27] MEDS: ESCITALOPRAM OXALATE 10 MG TAB PO SCH (10:25)
[2018-12-27] MEDS: ROSUVASTATIN CALCIUM 10 MG TABLET PO SCH (20:32)
[2018-12-27] MEDS: MONTELUKAST SODIUM 10 MG TABLET PO SCH (20:33)
[2018-12-27] MEDS: FINASTERIDE 5 MG TABLET PO SCH (20:33)
[2018-12-27] MEDS: DOXAZOSIN MESYLATE 2 MG TABLET PO SCH (20:33)
[2018-12-27] MEDS: fentaNYL 25 MCG PATCH.TD72 TD SCH (20:41)
[2018-12-28] MEDS: SULFAMETHOXAZOLE/TRIMETHOPRIM 10 ML in DEXTROSE 5 % IN WATER 250 ML IV SCH ×4 (04:36→09:19)
[2018-12-28] MEDS: ALBUTEROL SULFATE 2.5 MG/0.5 ML VIAL.NEB IH SCH ×4 (06:05→18:30)
[2018-12-28 08:53] LABS: Hematocrit 25.1 % (42.0-52.0); Hemoglobin 8.9 gm/dL (13.5-18.0); Mean Cell Volume 82.3 fl (78-100); Mean Corpuscular Hemoglobin 29.2 pg (27-31); Mean Corpuscular Hgb Conc 35.5 g/dl (32-36); Mean Platelet Volume 10.2 fl (8-11.3); Neutrophil # 12.4 K/mm3 (1.3-6.0); Neutrophil % 85.2 % (42-75.0); Platelet Count 209 K/mm3 (150-450); Red Blood Count 3.05 M/mm3 (4.7-6.0); Red Cell Distribution Width 13.6 % (11.5-14.0); White Blood Count 14.5 K/mm3 (4.0-10.5)
[2018-12-28] MEDS: INSULIN GLARGINE,HUM.REC.ANLOG 100 UNITS/ML VIAL SC SCH (08:58)
[2018-12-28 09:02] LABS: Anion Gap 11.4 mmol/L (6.8-13.8); Calcium * 7.7 mg/dL (7.9-10.9); Carbon Dioxide 22.6 mmol/L (24-32.6); Estimated Creat Clear 107.1
[2018-12-28] MEDS: DOCUSATE SODIUM 100 MG CAPSULE PO SCH (09:20)
[2018-12-28] MEDS: FLUTICASONE PROPION/SALMETEROL 14 PUFF DISK.W.DEV IH SCH ×2 (09:20→20:28)
[2018-12-28] MEDS: amLODIPine BESYLATE 5 MG TABLET PO SCH (09:20)
[2018-12-28] MEDS: GABAPENTIN 400 MG CAPSULE PO SCH ×3 (09:20→17:14)
[2018-12-28] MEDS: FAMOTIDINE 20 MG TABLET PO SCH ×2 (09:20→20:28)
[2018-12-28] MEDS: ASPIRIN 325 MG TABLET.DR PO SCH (09:20)
[2018-12-28] MEDS: CLOPIDOGREL BISULFATE 75 MG TABLET PO SCH (09:20)
[2018-12-28] MEDS: METOPROLOL TARTRATE 50 MG TABLET PO SCH ×2 (09:21→20:28)
[2018-12-28] MEDS: VITE AC PO SCH ×2 (09:21→20:28)
[2018-12-28] MEDS: ARGININE PO SCH ×2 (09:21→20:28)
[2018-12-28] MEDS: ASCORBATE SOD PO SCH ×2 (09:21→20:28)
--- NOTE | 2018-12-28 09:53 | PN ---
Subjective - Date and Time Seen Date: 12/28/18 Time: 09:46 Subjective Narrative: patient was asleep but woke up with name call and answered I'm OK when asked how he is doing. No more pouting/chewing movements of his lips and mouth. Objective - Review of Systems Misc: All systems neg except as marked - unreliable due to confusion - Vitals Vitals: Last Vital Signs Temp 36.2 C 12/28/18 08:08 Pulse 89 12/28/18 09:21 Resp 16 12/28/18 08:08 BP 130/68 12/28/18 09:21 Pulse Ox 95 12/28/18 08:08 - Abnormal Lab Findings Abnormal Lab Findings: Abnormal Lab Results 12/28/18 12/28/18 Range/Units 08:47 08:47 WBC 14.5 H (4.0-10.5) K/mm3 RBC 3.05 L (4.7-6.0) M/mm3 Hgb 8.9 L (13.5-18.0) gm/dL Hct 25.1 L (42.0-52.0) % Immature Gran % (Auto) 0.90 H (0.001-0.429) % Immature Gran # (Auto) 0.13 H (0.000-0.0310) K/mm3 Neutrophils % 85.2 H (42-75.0) % Lymphocytes % 5.6 L (20-51) % Neutrophils # 12.4 H (1.3-6.0) K/mm3 Lymphocytes # 0.81 L (1.5-3.5) k/mm3 Sodium 126 L (132-142) mmol/L Plasma Sodium 126 L (130-142) mmol/L Chloride 96 L (97-106) mmol/L Carbon Dioxide 22.6 L (24-32.6) mmol/L Est GFR (Non-Af Amer) 152 H (60-130) mL/min Random Glucose 123 H (70-110) mg/dL Calcium 7.7 L (7.9-10.9) mg/dL - Exam Constitutional: Present: Alert - AAo x 2, Elderly ENT Exam: Present: hearing grossly normal Neck: Present: supple. Absent: lymphadenopathy (R), lymphadenopathy (L) Respiratory: Present: decreased breath sounds, No rales, No wheezing Cardiovascular/Chest: Present: regular rate, rhythm, no JVD, no murmur Abdomen: Present: Normal bowel sounds, soft, nontender, nondistended Extremity: Present: no pedal edema, no calf tenderness Cauti Physician Documentation - Urinary Catheter Management Urethral (Olsen) Urethral Indwelling: Yes Date of Insertion: 12/22/18 Time of Insertion: 16:26 Assessment/Plan Plan Narrative: Jake is still confused but improved. I do not see his mouth and lips doing any pouting and chewing movements today. His sodium is down to 126. His hemoglobin is 8.9. His white blood cell count is down to 14. His echocardiogram did not show suspicious vegetations. We will put patient on fluid restriction at 1250 mL per 24 hours and consider adding Lasix. Will get Wound consult for his Decubitus ulcer. - Problems/Diagnosis (1) AMS (altered mental status) Problem: Acute Qualifiers: Altered mental status type: delirium Qualified Code(s): R41.0 - Disorientation, unspecified (2) Bacteremia due to Streptococcus Problem: Acute (3) Hyponatremia Problem: Acute (4) Tardive dyskinesia Problem: Suspected (5) Leukocytosis Problem: Acute Qualifiers: Leukocytosis type: leukemoid reaction Qualified Code(s): D72.823 - Leukemoid reaction (6) MRSA (methicillin resistant Staphylococcus aureus) infection Problem: Acute (7) Nausea & vomiting Problem: Acute Qualifiers: Vomiting Intractability: non-intractable (8) Diabetic gastroparesis Problem: Chronic (9) Dehydration Problem: Acute (10) Sepsis due to urinary tract infection Problem: Resolved (11) Indwelling urinary catheter present Problem: Acute (12) Urinary retention Problem: Acute (13) CAD (coronary artery disease) Problem: Chronic Qualifiers: Coronary Disease-Associated Artery/Lesion type: [place] artery [place] vs. transplanted heart: [place] heart Associated angina: without angina Qualified Code(s): I25.10 - Atherosclerotic heart disease of [place] coronary artery without angina pectoris (14) COPD (chronic obstructive pulmonary disease) Problem: Chronic Qualifiers: COPD type: unspecified COPD Qualified Code(s): J44.9 - Chronic obstructive pulmonary disease, unspecified (15) Diabetes mellitus Problem: Chronic Qualifiers: Diabetes mellitus type: type 2 Diabetes mellitus long-term insulin use: with extermination inspector use Diabetes mellitus complication status: with neurologic complications Diabetes mellitus complication detail: with polyneuropathy Qualified Code(s): E11.42 - Type 2 diabetes mellitus with diabetic polyneuropathy (16) Hyperlipidemia Problem: Chronic Qualifiers: Hyperlipidemia type: pure hypercholesterolemia Qualified Code(s): E78.00 - Pure hypercholesterolemia, unspecified; E78.0 - Pure hypercholesterolemia (17) Hypertension Problem: Chronic Qualifiers: Hypertension type: essential hypertension Qualified Code(s): I10 - Essential (primary) hypertension (18) Low back pain Problem: Chronic Qualifiers: Chronicity: chronic Back pain laterality: unspecified Sciatica presence: unspecified whether sciatica present Qualified Code(s): M54.5 - Low back pain; G89.29 - Other chronic pain (19) Neck pain Problem: Chronic (20) Decubitus ulcer Problem: Chronic Qualifiers: Pressure injury location: sacral region Pressure injury stage: stage 2 Qualified Code(s): L89.152 - Pressure ulcer of sacral region, stage 2 Narrative: stage 2-3
[2018-12-28] MEDS ORDERED: FUROSEMIDE 10 MG/ML VIAL IV ONE ×3 (10:49→19:52)
[2018-12-28] MEDS ORDERED: FUROSEMIDE 10 MG/ML VIAL ONE ×2 (12:59→20:32)
[2018-12-28] MEDS: NYSTATIN ORAL.SUSP PO SCH ×2 (13:02→17:14)
--- NOTE | 2018-12-28 13:11 | CONS ---
[facility] - General Date of Service: 12/28/17 - History of Present Illness Initial Comments: Patient is a 78-year-old male, recently admitted to the hospital due to weakness and vomiting. The patient was recently treated for a UTI with sepsis. He was residing at the [facility] prior to his most recent symptoms. He was admitted to the hospital approximately 5 days ago for treatment of his current symptoms. At that time they noted an ulcer to his sacrum. The history related to this ulcer is unclear. The patient is sleeping during this visit, and does not awaken during observation. He is unable to provide any details related to his ulcer. Current treatment includes on mepilex border. The patient's current diagnoses include altered mental status, bacteremia [place] to Streptococcus, hyponatremia, tardive dyskinesia, leukocytosis, MRSA, nausea and vomiting, diabetic gastropa resis, dehydration, urinary retention, coronary artery disease, COPD, hypertension, hyperlipidemia, low back pain and neck pain. [facility] to an ulcer on his left heel that responded well to treatment, and healed. Timing/Duration: unsure Allergies/Adverse Reactions: Allergies lisinopril Allergy (Mild, Verified 12/22/18 15:45) Hives, "FEELS SICK" metoclopramide [From Reglan] Adverse Reaction (Severe, Verified 12/27/18 09:16) Tardive Dyskinesia tamsulosin HCl [From Flomax] Adverse Reaction (Mild, Verified 12/22/18 15:45) "FEELS SICK" Home Medications: Home Medications Medication Instructions Recorded Last Taken Blood-Glucose Meter [Freestyle 1 ea MC ACHS 12/24/11 06/14/18 Lite Meter] Nitroglycerin [Nitrostat] 1 tab SL [id number] PRN 12/24/11 Unknown Aspirin [Aspirin Enteric Coated] 325 mg PO DAILY 01/29/16 06/16/18 albuterol sulfate 2.5 mg IH QID #180 ml 11/30/17 06/01/18 clopidogrel 75 mg tablet 75 mg PO DAILY #90 tab 03/25/18 12/10/18 Amlodipine Besylate 5 mg PO DAILY 06/01/18 06/16/18 Atorvastatin Calcium [Lipitor] 20 mg PO DAILY 06/01/18 06/16/18 Glucagon HCl 1 mg IJ PRN PRN 06/01/18 Unknown Syringe-Needle,Insulin,0.5 ml 0 ea .ROUTE .MEDSUPPLY 06/01/18 06/14/18 [Litetouch Insulin Syringe] albuterol sulfate 90 mcg/actuation 2 puff IH QID PRN #18 g 06/01/18 06/01/18 aerosol inhaler metFORMIN HCL [Glucophage] 1,000 mg PO BID 06/01/18 06/16/18 BD Ultra-Fine Mini Pen Needle 31 See Dose Instructions .ROUTE 06/30/18 Unknown gauge x 05/08" .MEDSUPPLY #100 ea NS Fluticasone Propion/Salmeterol 1 puff INHALATION BID 08/30/18 Unknown [Advair 250-50 Diskus] Montelukast Sodium [Singulair] 10 mg PO HS 08/30/18 Unknown Doxazosin Mesylate [Cardura] 2 mg PO HS #30 tab 11/19/18 Unknown Finasteride [Proscar] 5 mg PO HS #30 tab 11/19/18 Unknown Metoprolol Tartrate [Lopressor] 50 mg PO BID #60 tab 11/19/18 Unknown Sennosides/Docusate Sodium 2 tab PO HS PRN #60 tab 11/19/18 Unknown [Senokot-S] Bisacodyl [Dulcolax Suppository] 10 mg RC DAILY PRN #7 supp.rect 11/25/18 Unknown Famotidine [Pepcid] 20 mg PO DAILY #60 tab 11/25/18 Unknown Metoclopramide HCl [Reglan] 5 mg PO ACHS PRN #30 tab 11/25/18 Unknown gabapentin 400 mg capsule 400 mg PO TID #0.1 cap 12/01/18 Unknown insulin glargine 100 unit/mL (3 10 unit SUBCUT .am #15 ml 12/01/18 Unknown mL) subcutaneous pen ondansetron HCl 4 mg tablet 4 mg PO Q6H PRN #30 tab 12/08/18 Unknown fentanyl 25 mcg/hr transdermal 1 patch TRANSDERMAL Q72H #5 ea 12/17/18 Unknown patch Acetaminophen 650 mg PO Q6H PRN 12/22/18 Unknown Arginine/Ascorbate Sod/Yuan AC 1 ea PO BID 12/22/18 Unknown [Arginaid Powder] Escitalopram Oxalate [Lexapro] 10 mg PO DAILY 12/22/18 Unknown Whey Protein Isolate [Beneprotein] 1 ea PO BIDWM 12/22/18 Unknown Procedures Biopsy of mouth, unspecified structure (07/15/11) Circumcision (06/30/05) Colonoscopy (07/15/11) Esophagogastroduodenoscopy [EGD] with closed biopsy (07/15/11) Injection of anesthetic into spinal canal for analgesia (11/24/12) Injection of other agent into spinal canal (11/24/12) Injection of steroid (11/24/12) Introduction of Anti-inflammatory into Epidural Space, Percutaneous Approach (02/06/16) Introduction of Local Anesthetic into Epidural Space, Percutaneous Approach (02/06/16) Laparoscopic cholecystectomy (12/26/11) Other diagnostic procedures on lymphatic structures (07/15/11) Other transurethral prostatectomy (04/28/05) Replacement of Left Lens with Synthetic Substitute, Percutaneous Approach (01/05/17) Replacement of Right Lens with Synthetic Substitute, Percutaneous Approach (10/13/16) Retrograde pyelogram (04/28/05) Transfusion of packed cells (04/28/05) Medications - Medications Current Medications: Current Medications Acetaminophen (Tylenol) 650 mg PO Q6H PRN PRN Reason: Mild pain (pain scale 1-3) Stop: 01/21/19 15:18 Last Admin: 12/26/18 05:07 Dose: 650 mg Documented by: Albuterol Sulfate (Albuterol Sulfate 2.5 Mg/0.5ml) 2.5 mg IH QIDRT [facility] Stop: 01/21/19 19:01 Last Admin: 12/28/18 10:48 Dose: 2.5 mg Documented by: Albuterol Sulfate (Albuterol Sulfate 2.5 Mg/0.5ml) 2.5 mg IH QID PRN PRN Reason: Shortness Of Breath Stop: 01/21/19 15:21 Last Admin: 12/23/18 18:30 Dose: 2.5 mg Documented by: Amlodipine Besylate (Norvasc) 5 mg PO DAILY [facility] Stop: 01/22/19 09:01 Last Admin: 12/28/18 09:20 Dose: 5 mg Documented by: Aspirin (Aspirin Enteric Coated) 325 mg PO DAILY [facility] Stop: 01/22/19 09:01 Last Admin: 12/28/18 09:20 Dose: 325 mg Documented by: Clopidogrel Bisulfate (Plavix) 75 mg PO DAILY [facility] Stop: 01/22/19 09:01 Last Admin: 12/28/18 09:20 Dose: 75 mg Documented by: Docusate Sodium (Colace) 100 mg PO DAILY [facility] Stop: 01/22/19 09:01 Last Admin: 12/28/18 09:20 Dose: 100 mg Documented by: Doxazosin Mesylate (Cardura) 2 mg PO HS [facility] Stop: 01/21/19 21:01 Last Admin: 12/27/18 20:33 Dose: 2 mg Documented by: Famotidine (Pepcid) 20 mg PO BID [facility] Stop: 01/23/19 21:01 Last Admin: 12/28/18 09:20 Dose: 20 mg Documented by: Fentanyl (Duragesic) 25 mcg TD Q72H [facility] Stop: 01/23/19 20:01 Last Admin: 12/27/18 20:41 Dose: 25 mcg Documented by: Finasteride (Proscar) 5 mg PO [facility] Stop: 01/21/19 21:01 Last Admin: 12/27/18 20:33 Dose: 5 mg Documented by: Gabapentin (Neurontin) 400 mg PO TID [facility] Stop: 01/21/19 17:01 Last Admin: 12/28/18 09:20 Dose: 400 mg Documented by: Trimethoprim/Sulfamethoxazole (10 ml/ Dextrose/Water) 260 mls @ 250 mls/hr IV Q6H [facility]; Protocol Stop: 01/23/19 16:01 Last Infusion: 12/28/18 10:22 Dose: Infused Documented by: Ceftriaxone Sodium 2,000 mg/ (Dextrose/Water) 100 mls @ 200 mls/hr IV Q24H [facility]; Protocol Stop: 01/26/19 13:46 Last Infusion: 12/27/18 14:23 Dose: Infused Documented by: Insulin Glargine (Lantus) 10 units SC 0800 [facility] Stop: 01/22/19 08:01 Last Admin: 12/28/18 08:58 Dose: Not Given Documented by: Metformin HCl (Glucophage) 1,000 mg PO BIDWM [facility] Stop: 01/21/19 17:01 Last Admin: 12/27/18 16:37 Dose: 1,000 mg Documented by: Metoprolol Tartrate (Lopressor) 50 mg PO BID [facility] Stop: 01/21/19 21:01 Last Admin: 12/28/18 09:21 Dose: 50 mg Documented by: Montelukast Sodium (Singulair) 10 mg PO HS [facility] Stop: 01/21/19 21:01 Last Admin: 12/27/18 20:33 Dose: 10 mg Documented by: Arginine/Ascorbate Sod/Yuan Ac [ Arginaid Powder] 1 ea PO BID [facility] Stop: 01/21/19 21:01 Last Admin: 12/28/18 09:21 Dose: Not Given Documented by: Ondansetron HCl (Zofran Odt) 4 mg PO Q4H PRN PRN Reason: Nausea And Vomiting Stop: 01/21/19 15:21 Last Admin: 12/24/18 02:20 Dose: 4 mg Documented by: Rosuvastatin Calcium (Crestor) 10 mg PO HS [facility] Stop: 01/21/19 21:01 Last Admin: 12/27/18 20:32 Dose: 10 mg Documented by: Fluticasone/Salmeterol (Advair 250-50 Diskus) 1 puff IH BID [facility] Stop: 01/21/19 21:01 Last Admin: 12/28/18 09:20 Dose: 1 puff Documented by: Review of Systems - Review of Systems Narrative: unable to obtain, due to patient condition Physical Examination - Exam Vital Signs: Vital Signs - Last Taken Temp 36.4 C 12/28/18 09:52 Pulse 75 12/28/18 10:58 Resp 22 H 12/28/18 10:58 BP 114/63 12/28/18 09:52 Pulse Ox 95 12/28/18 10:48 O2 Oxygen Delivery Method Room Air Comprehensive Narative: 12/28/18 13:10 patient is asleep, and does not awaken during evaluation. Constitutional: Present: No distress, Lethargic, Thin and frail Skin Exam: Present: other - there is an ulcer on the sacrum, measuring ~2.5 x 1.5cm with large amount of yellow necrosis. the depth of the ulcer cannot be determined. moderate amount of serous drainage. no erythema. - Results and Findings: Narrative: The patient's current health condition is poor. He does not respond to questions, or repositioning. The origin and duration of the ulcer is undetermined. Consideration should be given for a Shabbir Ulcer diagnosis. Recommend dressings to include Aquacel Ag, covered with gauze and secured with tape. This will control drainage and bacteria. The dressing will be changed daily and washed with soap and water at dressing changes. Continue with the excellent off-loading. Lab/Microbiology results last 24 hrs: Abnormal/Pending Laboratory Last 24 HRS 12/28/18 12/28/18 08:47 08:47 WBC 14.5 H RBC 3.05 L Hgb 8.9 L Hct 25.1 L Immature Gran % (Auto) 0.90 H Immature Gran # (Auto) 0.13 H Neutrophils % 85.2 H Lymphocytes % 5.6 L Neutrophils # 12.4 H Lymphocytes # 0.81 L Sodium 126 L Plasma Sodium 126 L Chloride 96 L Carbon Dioxide 22.6 L Est GFR (Non-Af Amer) 152 H Random Glucose 123 H Calcium 7.7 L Culture 12/22/18 14:40 Blood Culture - Final Blood NO GROWTH 5 DAYS 12/22/18 12:50 Blood Culture - Final Blood Streptococcus Viridans - Assessments/Findings (1) Sacral pressure ulcer Problem: Acute
--- NOTE | 2018-12-28 13:14 | ECHO ---
This report is available in the EMR
[2018-12-28] MEDS ORDERED: diphenhydrAMINE HCL 50 MG/ML VIAL IV ONE (13:53)
[2018-12-28] MEDS ORDERED: METHYLPREDNISOLONE SOD SUCC/PF 125 MG/2 ML VIAL IV STA (14:37)
--- NOTE | 2018-12-28 15:51 | PN ---
[facility] Note - Interim Date: 12/28/18 Time: 15:45 Narrative: 12/28/18 15:45 I was called to see Jake because the patient was desaturating in the 70s to 80s. He was put on nasal mask with 15 L of oxygen his oxygen saturation went up to the 90%. He was noted to have tongue swelling and lip swelling this morning for which we gave him Benadryl and IV Solu-Medrol. We also gave him 1 dose of IV Lasix 20 mg. He is not on any AR inhibitor. His most recent medication 2 days ago was a one-time dose of Zyprexa. He was on his 6 to 7-day of IV Bactrim. His ABG were within normal range except for his oxygen saturation of 84.5% with the PO2 of 47.6. His chest x-ray showed pulmonary congestion but correlate clinically for infection. We will start patient on CPAP of 5 and transfer him to the unit for closer observation. It looks like the swelling of the tongue and the lips are starting to get a little bit smaller. If he starts to show any stridor or inspiratory wheezing denoting upper airway then we will need to intubate him. If this is a late reaction to his IV Bactrim we are going to stop it and start him on IV Vanco for his MRSA. If after diuresing him more a follow-up chest x-ray shows more of possible aspiration pneumonia we will change his IV Rocephin IV meropenem.
[2018-12-28] MEDS: VANCOMYCIN HCL 1 GM in DEXTROSE 5 % IN WATER 250 ML IV SCH ×2 (17:23)
[2018-12-28] MEDS: DOXAZOSIN MESYLATE 2 MG TABLET PO SCH (20:28)
[2018-12-28] MEDS: MONTELUKAST SODIUM 10 MG TABLET PO SCH (20:28)
[2018-12-28] MEDS: ROSUVASTATIN CALCIUM 10 MG TABLET PO SCH (20:28)
[2018-12-28] MEDS: FINASTERIDE 5 MG TABLET PO SCH (20:28)
[2018-12-29] MEDS: VANCOMYCIN HCL 1 GM in DEXTROSE 5 % IN WATER 250 ML IV SCH ×4 (04:32→17:58)
[2018-12-29] MEDS: ALBUTEROL SULFATE 2.5 MG/0.5 ML VIAL.NEB IH SCH ×4 (06:03→19:39)
[2018-12-29 06:47] LABS: Mean Cell Volume 83.1 fl (78-100); Mean Corpuscular Hemoglobin 29.9 pg (27-31); Platelet Count 242 K/mm3 (150-450); Red Blood Count 3.01 M/mm3 (4.7-6.0); Red Cell Distribution Width 13.4 % (11.5-14.0); White Blood Count 28.6 K/mm3 (4.0-10.5)
[2018-12-29 06:51] LABS: Total Cells Counted 100
[2018-12-29 06:59] LABS: Anion Gap 15.2 mmol/L (6.8-13.8); BUN/Creatinine Ratio 19.8 (9.0-21.6); Calcium * 7.9 mg/dL (7.9-10.9); Carbon Dioxide 20.4 mmol/L (24-32.6); Potassium 4.6 mmol/L (3.4-4.6)
[2018-12-29 07:06] LABS: Atypical (Reactive) Lymph 1 % (0-2); Band 1 % (0-2.0); Lymphocyte 1 % (20-51); Neutrophil 97 % (42-75); Neutrophil # 27.7 K/mm3 (1.3-6.0)
[2018-12-29 07:10] LABS: Platelet Estimate Normal (NORMAL); RBC Morphology Normal (NORMAL)
--- NOTE | 2018-12-29 08:29 | PN ---
Subjective - Date and Time Seen Date: 12/29/18 Time: 08:18 Subjective Narrative: patient on nasal cannula 2 L. he is more awake and alert today but remained on and off confused. Objective - Review of Systems Misc: All systems neg except as marked - ROS is unreliable due to his confusion. - Vitals Vitals: Last Vital Signs Temp 37.0 C 12/29/18 07:00 Pulse 101 H 12/29/18 07:00 Resp 16 12/29/18 07:00 BP 141/72 12/29/18 07:00 Pulse Ox 95 12/29/18 07:00 - Abnormal Lab Findings Abnormal Lab Findings: Abnormal Lab Results 12/28/18 12/28/18 12/28/18 Range/Units 08:47 08:47 15:17 WBC 14.5 H (4.0-10.5) K/mm3 RBC 3.05 L (4.7-6.0) M/mm3 Hgb 8.9 L (13.5-18.0) gm/dL Hct 25.1 L (42.0-52.0) % Immature Gran % (Auto) 0.90 H (0.001-0.429) % Immature Gran # (Auto) 0.13 H (0.000-0.0310) K/mm3 Neutrophils % 85.2 H (42-75.0) % Neutrophils % (Manual) (42-75) % Lymphocytes % 5.6 L (20-51) % Lymphocytes % (Manual) (20-51) % Neutrophils # 12.4 H (1.3-6.0) K/mm3 Neutrophils # (Manual) (1.3-6.0) K/mm3 Lymphocytes # 0.81 L (1.5-3.5) k/mm3 Lymphocytes # (Manual) (1.5-3.5) k/mm3 pO2 47.6 L (83.0-108.0) mmHg ABG O2 Sat (Measured) 84.5 L (94.0-98.0) % Sodium 126 L (132-142) mmol/L Plasma Sodium 126 L (130-142) mmol/L Chloride 96 L (97-106) mmol/L Carbon Dioxide 22.6 L (24-32.6) mmol/L Anion Gap (6.8-13.8) mmol/L Est GFR (Non-Af Amer) 152 H (60-130) mL/min Random Glucose 123 H (70-110) mg/dL Calcium 7.7 L (7.9-10.9) mg/dL B-Natriuretic Peptide (5-650) pg/mL 12/29/18 12/29/18 Range/Units 06:15 06:15 WBC 28.6 H D (4.0-10.5) K/mm3 RBC 3.01 L (4.7-6.0) M/mm3 Hgb 9.0 L (13.5-18.0) gm/dL Hct 25.0 L (42.0-52.0) % Immature Gran % (Auto) (0.001-0.429) % Immature Gran # (Auto) (0.000-0.0310) K/mm3 Neutrophils % (42-75.0) % Neutrophils % (Manual) 97 H (42-75) % Lymphocytes % (20-51) % Lymphocytes % (Manual) 1 L (20-51) % Neutrophils # (1.3-6.0) K/mm3 Neutrophils # (Manual) 27.7 H (1.3-6.0) K/mm3 Lymphocytes # (1.5-3.5) k/mm3 Lymphocytes # (Manual) 0.3 L (1.5-3.5) k/mm3 pO2 (83.0-108.0) mmHg ABG O2 Sat (Measured) (94.0-98.0) % Sodium 124 L (132-142) mmol/L Plasma Sodium 127 L (130-142) mmol/L Chloride 93 L (97-106) mmol/L Carbon Dioxide 20.4 L (24-32.6) mmol/L Anion Gap 15.2 H (6.8-13.8) mmol/L Est GFR (Non-Af Amer) (60-130) mL/min Random Glucose 295 H D (70-110) mg/dL Calcium (7.9-10.9) mg/dL B-Natriuretic Peptide 722 H (5-650) pg/mL - Exam Constitutional: Present: Alert - AAO x 2, Cooperative, Elderly Neck: Present: limited range of motion. Absent: lymphadenopathy (R), lymphadenopathy (L) Respiratory: Present: decreased breath sounds, rales, No wheezing Cardiovascular/Chest: Present: regular rate, rhythm, no JVD, no murmur Abdomen: Present: Normal bowel sounds, soft, nontender, nondistended Extremity: Present: no calf tenderness, pedal edema, other - swollen LUE Cauti Physician Documentation - Urinary Catheter Management Urethral (Olsen) Urethral Indwelling: Yes Date of Insertion: 12/22/18 Time of Insertion: 16:26 Assessment/Plan Plan Narrative: Jake remains confused but is more awake alert oriented today. Swelling of his lips and tongue has improved. He is on nasal cannula at 2 L and saturating above 93%. His sodium is down to 124 today and his white blood cell count is up to 28. His leukocytosis likely is a reaction to the IV steroids we gave yesterday to try and reduce the swelling of his lips and tongue. His hyponatremia did not respond to 2 rounds of hypertonic saline in his last admission. We will increase his fluid restriction today give him IV Lasix and start him on sodium tablets. There is some difference in pupillary sizes, the left smaller and nonreactive to sluggish reactive to light. He is not able to open his eyelids on the left. His head CT scan did not show any acute intracranial process. If he remains stable today we will order for an MRI. We will also order for ultrasound to rule out DVT of his right upper extremity. He is not on DVT prophylaxis but is on SCD. - Problems/Diagnosis (1) AMS (altered mental status) Problem: Acute Qualifiers: Altered mental status type: delirium Qualified Code(s): R41.0 - Disorientation, unspecified Narrative: multifactorial- delirium, toxic/metabolic encephalopathy wit strep viridans bacteremia/MRSA UTI and hyponatremia (2) Bacteremia due to Streptococcus Problem: Acute (3) Hyponatremia Problem: Acute (4) Tardive dyskinesia Problem: Suspected (5) Leukocytosis Problem: Acute Qualifiers: Leukocytosis type: leukemoid reaction Qualified Code(s): D72.823 - Leukemoid reaction (6) MRSA (methicillin resistant Staphylococcus aureus) infection Problem: Acute (7) Nausea & vomiting Problem: Acute Qualifiers: Vomiting Intractability: non-intractable (8) Diabetic gastroparesis Problem: Chronic (9) Dehydration Problem: Acute (10) Sepsis due to urinary tract infection Problem: Resolved (11) Indwelling urinary catheter present Problem: Acute (12) Urinary retention Problem: Acute (13) CAD (coronary artery disease) Problem: Chronic Qualifiers: Coronary Disease-Associated Artery/Lesion type: [place] artery [place] vs. transplanted heart: [place] heart Associated angina: without angina Qualified Code(s): I25.10 - Atherosclerotic heart disease of [place] coronary artery w ithout angina pectoris (14) COPD (chronic obstructive pulmonary disease) Problem: Chronic Qualifiers: COPD type: unspecified COPD Qualified Code(s): J44.9 - Chronic obstructive pulmonary disease, unspecified (15) Diabetes mellitus Problem: Chronic Qualifiers: Diabetes mellitus type: type 2 Diabetes mellitus [facility] insulin use: with [facility] use Diabetes mellitus complication status: with neurologic complications Diabetes mellitus complication detail: with polyneuropathy Qualified Code(s): E11.42 - Type 2 diabetes mellitus with diabetic polyneuropathy (16) Hyperlipidemia Problem: Chronic Qualifiers: Hyperlipidemia type: pure hypercholesterolemia Qualified Code(s): E78.00 - Pure hypercholesterolemia, unspecified; E78.0 - Pure hypercholesterolemia (17) Hypertension Problem: Chronic Qualifiers: Hypertension type: essential hypertension Qualified Code(s): I10 - Essential (primary) hypertension (18) Low back pain Problem: Chronic Qualifiers: Chronicity: chronic Back pain laterality: unspecified Sciatica presence: unspecified whether sciatica present Qualified Code(s): M54.5 - Low back pain; G89.29 - Other chronic pain (19) Neck pain Problem: Chronic (20) Decubitus ulcer Problem: Chronic Qualifiers: Pressure injury location: sacral region Pressure injury stage: stage 2 Qualified Code(s): L89.152 - Pressure ulcer of sacral region, stage 2
[2018-12-29] MEDS ORDERED: FUROSEMIDE 10 MG/ML VIAL IV ONE (08:33)
[2018-12-29] MEDS: ASPIRIN 325 MG TABLET.DR PO SCH (08:50)
[2018-12-29] MEDS: FLUTICASONE PROPION/SALMETEROL 14 PUFF DISK.W.DEV IH SCH ×2 (08:50→20:02)
[2018-12-29] MEDS: METOPROLOL TARTRATE 50 MG TABLET PO SCH ×2 (08:51→20:04)
[2018-12-29] MEDS: DOCUSATE SODIUM 100 MG CAPSULE PO SCH (08:51)
[2018-12-29] MEDS: NYSTATIN ORAL.SUSP PO SCH ×3 (08:52→17:50)
[2018-12-29] MEDS: GABAPENTIN 400 MG CAPSULE PO SCH ×3 (08:52→17:50)
[2018-12-29] MEDS: amLODIPine BESYLATE 5 MG TABLET PO SCH (08:53)
[2018-12-29] MEDS: CLOPIDOGREL BISULFATE 75 MG TABLET PO SCH (08:54)
[2018-12-29] MEDS: FAMOTIDINE 20 MG TABLET PO SCH ×2 (08:54→20:03)
[2018-12-29] MEDS: SODIUM CHLORIDE 1 GM TABLET PO SCH ×3 (08:56→17:50)
[2018-12-29] MEDS: ASCORBATE SOD PO SCH ×2 (09:41→20:02)
[2018-12-29] MEDS: VITE AC PO SCH ×2 (09:41→20:02)
[2018-12-29] MEDS: ARGININE PO SCH ×2 (09:41→20:02)
[2018-12-29] MEDS: ENOXAPARIN SODIUM 40 MG/0.4 ML SYRG SC SCH (10:09)
[2018-12-29] MEDS: INSULIN GLARGINE,HUM.REC.ANLOG 100 UNITS/ML VIAL SC SCH (11:58)
[2018-12-29] MEDS: ROSUVASTATIN CALCIUM 10 MG TABLET PO SCH (20:03)
[2018-12-29] MEDS: FINASTERIDE 5 MG TABLET PO SCH (20:03)
[2018-12-29] MEDS: DOXAZOSIN MESYLATE 2 MG TABLET PO SCH (20:04)
[2018-12-29] MEDS: MONTELUKAST SODIUM 10 MG TABLET PO SCH (20:04)
[2018-12-30] MEDS: VANCOMYCIN HCL 1 GM in DEXTROSE 5 % IN WATER 250 ML IV SCH ×4 (05:04→17:48)
[2018-12-30] MEDS: ALBUTEROL SULFATE 2.5 MG/0.5 ML VIAL.NEB IH SCH ×4 (06:01→18:25)
[2018-12-30 06:30] LABS: Anion Gap 10.2 mmol/L (6.8-13.8); BUN/Creatinine Ratio 22.5 (9.0-21.6); Calcium * 8.1 mg/dL (7.9-10.9); Carbon Dioxide 24.5 mmol/L (24-32.6); Estimated Creat Clear 78.2; Potassium 3.7 mmol/L (3.4-4.6)
[2018-12-30 06:39] LABS: Mean Cell Volume 84.1 fl (78-100); Mean Corpuscular Hemoglobin 29.3 pg (27-31); Mean Corpuscular Hgb Conc 34.8 g/dl (32-36); Mean Platelet Volume 10.8 fl (8-11.3); Neutrophil # 17.1 K/mm3 (1.3-6.0); Neutrophil % 88.4 % (42-75.0); Platelet Count 234 K/mm3 (150-450); Red Cell Distribution Width 13.8 % (11.5-14.0); White Blood Count 19.4 K/mm3 (4.0-10.5)
[2018-12-30] MEDS ORDERED: FUROSEMIDE 10 MG/ML VIAL IV ONE (06:50)
[2018-12-30 07:08] LABS: Hematocrit 22.7 % (42.0-52.0)
[2018-12-30 07:09] LABS: Hemoglobin 7.9 gm/dL (13.5-18.0)
--- NOTE | 2018-12-30 08:28 | PN ---
Subjective - Date and Time Seen Date: 12/30/18 Time: 08:12 Subjective Narrative: patient was not respondng earlier this morning to SCU nurse and his O2 saturation went down to 70's and minimally improved with NC. He was started on CPAP. He woke up with his name call and answerd my questions appropriately but then went to sleep again. Objective - Review of Systems Misc: All systems neg except as marked - unreliable due to his confusion on and off. - Vitals Vitals: Last Vital Signs Temp 37.3 C 12/30/18 07:00 Pulse 87 12/30/18 07:00 Resp 19 12/30/18 07:00 BP 103/55 12/30/18 07:14 Pulse Ox 93 12/30/18 07:20 - Abnormal Lab Findings Abnormal Lab Findings: Abnormal Lab Results 12/30/18 12/30/18 Range/Units 06:17 06:17 WBC 19.4 H D (4.0-10.5) K/mm3 RBC 2.70 L (4.7-6.0) M/mm3 Hgb 7.9 L* (13.5-18.0) gm/dL Hct 22.7 L* (42.0-52.0) % Immature Gran % (Auto) 1.20 H (0.001-0.429) % Immature Gran # (Auto) 0.23 H (0.000-0.0310) K/mm3 Neutrophils % 88.4 H (42-75.0) % Lymphocytes % 3.9 L (20-51) % Neutrophils # 17.1 H (1.3-6.0) K/mm3 Lymphocytes # 0.76 L (1.5-3.5) k/mm3 Monocytes # 1.1 H (0.0-1.0) k/mm3 Sodium 127 L (132-142) mmol/L Plasma Sodium 129 L (130-142) mmol/L Chloride 96 L (97-106) mmol/L BUN/Creatinine Ratio 22.5 H (9.0-21.6) Random Glucose 220 H (70-110) mg/dL - Exam Constitutional: Present: Alert - AAO x1, Cooperative, Elderly, Thin and frail ENT Exam: Present: hearing grossly normal Neck: Present: limited range of motion. Absent: lymphadenopathy (R), lymphadenopathy (L) Respiratory: Present: decreased breath sounds, crackles, No wheezing Cardiovascular/Chest: Present: regular rate, rhythm, no JVD, no murmur Abdomen: Present: Normal bowel sounds, soft, nontender, nondistended Extremity: Present: no calf tenderness, pedal edema Cauti Physician Documentation - Urinary Catheter Management Urethral (Olsen) Urethral Indwelling: Yes Date of Insertion: 12/22/18 Time of Insertion: 16:26 Assessment/Plan Plan Narrative: Jake continues to be confused on and off. He has delirium as well as an acute metabolic/toxic encephalopathy . He has hyponatremia as well as MRSA UTI as well as Streptococcus viridans bacteremia. As per he is a full code and she wants to put an NG tube for tube feeding as recommended by dietitian/nutrition to help with nutriotn and healing of his decubitus ulcer. He has been only eating about 25% of his meals. His swelling of his lips and tongue has significantly subsided however he continues to have right upper extremity swelling and his has difficulty of opening his left eye. We did an ultrasound of his right upper extremity which showed no DVT. We will schedule him an MRI today when he gets more stable. We will continue him on CPAP and order an echocardiogram. His sodium is improved to 129 today. His hemoglobin went down to 7.9 and his WBC is down to 19 from 28. He had IV linezolid for 1 and 1/2 days on his admission and switched to Bactrim from December 24- and then to IV vancomycin December 28 to present in case it was delayed allergic reaction that caused swelling of his tongue and lips and eyelids. He was also started on IV Rocephin on December 24 for his streptococcus viridans.Will changer his IV rocephin to IV merrem to cover for anaerobes in case there is aspiration. We gave him IV lasix. We will repeat and [facility].We will try to get in touch with infectious disease of [facility] for recommendation. - Problems/Diagnosis (1) AMS (altered mental status) Problem: Acute Qualifiers: Altered mental status type: delirium Qualified Code(s): R41.0 - Disorientation, unspecified (2) Acute encephalopathy Problem: Acute (3) Bacteremia due to Streptococcus Problem: Acute (4) Hyponatremia Problem: Acute (5) Tardive dyskinesia Problem: Suspected (6) Leukocytosis Problem: Acute Qualifiers: Leukocytosis type: leukemoid reaction Qualified Code(s): D72.823 - Leukemoid reaction (7) MRSA (methicillin resistant Staphylococcus aureus) infection Problem: Acute (8) Nausea & vomiting Problem: Acute Qualifiers: Vomiting Intractability: non-intractable (9) Diabetic gastroparesis Problem: Chronic (10) Dehydration Problem: Acute (11) Sepsis due to urinary tract infection Problem: Resolved (12) Indwelling urinary catheter present Problem: Acute (13) Urinary retention Problem: Acute (14) CAD (coronary artery disease) Problem: Chronic Qualifiers: Coronary Disease-Associated Artery/Lesion type: [place] artery [place] vs. transplanted heart: [place] heart Associated angina: without angina Qualified Code(s): I25.10 - Atherosclerotic heart disease of [place] coronary artery without angina pectoris (15) COPD (chronic obstructive pulmonary disease) Problem: Chronic Qualifiers: COPD type: unspecified COPD Qualified Code(s): J44.9 - Chronic obstructive pulmonary disease, unspecified (16) Diabetes mellitus Problem: Chronic Qualifiers: Diabetes mellitus type: type 2 Diabetes mellitus prison insulin use: with prison use Diabetes mellitus complication status: with neurologic complications Diabetes mellitus complication detail: with polyneuropathy Qualified Code(s): E11.42 - Type 2 diabetes mellitus with diabetic polyneuropathy (17) Hyperlipidemia Problem: Chronic Qualifiers: Hyperlipidemia type: pure hypercholesterolemia Qualified Code(s): E78.00 - Pure hypercholesterolemia, unspecified; E78.0 - Pure hypercholesterolemia (18) Hypertension Problem: Chronic Qualifiers: Hypertension type: essential hypertension Qualified Code(s): I10 - Essential (primary) hypertension (19) Low back pain Problem: Chronic Qualifiers: Chronicity: chronic Back pain laterality: unspecified Sciatica presence: unspecified whether sciatica present Qualified Code(s): M54.5 - Low back pain; G89.29 - Other chronic pain (20) Neck pain Problem: Chronic (21) Decubitus ulcer Problem: Chronic Qualifiers: Pressure injury location: sacral region Pressure injury stage: stage 2 Qualified Code(s): L89.152 - Pressure ulcer of sacral region, stage 2 (22) Malnutrition Problem: Acute Qualifiers: Malnutrition type: protein-calorie malnutrition Protein-calorie malnutrition severity: severe Qualified Code(s): E43 - Unspecified severe protein-calorie malnutrition
[2018-12-30] MEDS: INSULIN GLARGINE,HUM.REC.ANLOG 100 UNITS/ML VIAL SC SCH (08:34)
[2018-12-30] MEDS: METOPROLOL TARTRATE 50 MG TABLET PO SCH ×2 (08:35→20:50)
[2018-12-30] MEDS: ASPIRIN 325 MG TABLET.DR PO SCH (08:35)
[2018-12-30] MEDS: DOCUSATE SODIUM 100 MG CAPSULE PO SCH (08:35)
[2018-12-30] MEDS: NYSTATIN ORAL.SUSP PO SCH ×3 (08:36→17:11)
[2018-12-30] MEDS: GABAPENTIN 400 MG CAPSULE PO SCH ×3 (08:37→17:11)
[2018-12-30] MEDS: amLODIPine BESYLATE 5 MG TABLET PO SCH (08:37)
[2018-12-30] MEDS: FAMOTIDINE 20 MG TABLET PO SCH ×2 (08:37→20:51)
[2018-12-30] MEDS: CLOPIDOGREL BISULFATE 75 MG TABLET PO SCH (08:38)
[2018-12-30] MEDS: SODIUM CHLORIDE 1 GM TABLET PO SCH ×3 (08:38→17:11)
[2018-12-30] MEDS: FLUTICASONE PROPION/SALMETEROL 14 PUFF DISK.W.DEV IH SCH ×2 (08:56→20:50)
[2018-12-30 09:30] LABS: Iron 23 mcg/dL (35-120); Transferrin Sat. (% Sat.) 17 % (15-55)
[2018-12-30] MEDS ORDERED: metFORMIN HCL 500 MG TABLET ONE (09:38)
[2018-12-30] MEDS: ARGININE PO SCH ×2 (09:41→20:50)
[2018-12-30] MEDS: VITE AC PO SCH ×2 (09:41→20:50)
[2018-12-30] MEDS: ASCORBATE SOD PO SCH ×2 (09:41→20:50)
[2018-12-30] MEDS: ENOXAPARIN SODIUM 40 MG/0.4 ML SYRG SC SCH (09:43)
[2018-12-30] MEDS: MEROPENEM 1 GM in NORMAL SALINE 100 ML IV SCH ×2 (10:30→22:08)
[2018-12-30] MEDS: SACCHAROMYCES BOULARDII 250 MG CAPSULE PO SCH ×2 (10:30→20:50)
[2018-12-30 10:37] LABS: Urine Bilirubin Negative (NEGATIVE); Urine Blood Negative /ul (NEGATIVE); Urine Ketone Negative (NEGATIVE); Urine Nitrite Negative (NEGATIVE); Urine Protein Negative (NEGATIVE); Urine Specific Gravity 1.025 SP.GR. (1.005-1.030); Urine Urobilinogen Normal (NORMAL); Urine pH 5.5 pH (5.0-7.0)
[2018-12-30 11:01] LABS: Urine Appearance Clear (CLEAR); Urine Color Yellow; Urine RBC None Seen /hpf (0-5); Urine WBC None Seen /hpf (0-5)
[2018-12-30 11:02] LABS: Urine Amorphous Sediment Moderate - 2+ (NONE-FEW); Urine Bacteria None Seen
[2018-12-30 12:08] LABS: Folate 2.1 ng/mL (8.6-58.9)
[2018-12-30] MEDS ORDERED: VANCOMYCIN HCL LEVEL XX ONE (16:30)
--- NOTE | 2018-12-30 17:03 | PN ---
Progess Note - Interim Date: 12/30/18 Time: 16:58 Narrative: 12/30/18 16:58 I discussed the case with Dr. Maraí Hendrix, infectious disease specialist in [facility]. She agrees to continue IV vancomycin, IV Merrem, and recommends getting a urine for Legionella antigen and if positive to add a macrolide. If patient also does not improve in 2 to 3 days she also recommends adding the macrolide anyway. She is asking if we got the sputum culture on him. I said I did put an order for sputum culture but if the patient does not I can order also for sputum induction. I discussed the case with Alice and Giselle about the poor prognosis of Jake. I told him that Jake came in with MRSA urinary tract infection then had one blood culture positive for Streptococcus viridans in his blood causing bacteremia/septicemia. This morning he had desaturations and his chest x-ray showed pneumonia. In the meantime while treating for all this infection he had possible tardive dyskinesia and possible CVA. I told them that we got an MRI but he he was moving all around and so there could not be any definite conclusion from this unless we do this under anesthesia . He might wake up from this and they agree not to pursue it. He was not a candidate for TPA due to his current medical condition. They agree with comfort care if he does not improve and there is no more hope. 12/30/18 19:05 SCU nurse talked to Alice- he is still a full code she wants everything done - CPR and intubation.
[2018-12-30] MEDS: DOXAZOSIN MESYLATE 2 MG TABLET PO SCH (20:50)
[2018-12-30] MEDS: ROSUVASTATIN CALCIUM 10 MG TABLET PO SCH (20:50)
[2018-12-30] MEDS: MONTELUKAST SODIUM 10 MG TABLET PO SCH (20:51)
[2018-12-30] MEDS: FINASTERIDE 5 MG TABLET PO SCH (20:51)
[2018-12-30] MEDS: fentaNYL 25 MCG PATCH.TD72 TD SCH (22:07)
[2018-12-31] MEDS: VANCOMYCIN HCL 1 GM in DEXTROSE 5 % IN WATER 250 ML IV SCH ×4 (04:54→17:30)
[2018-12-31] MEDS: ALBUTEROL SULFATE 2.5 MG/0.5 ML VIAL.NEB IH SCH ×5 (05:53→18:09)
[2018-12-31 06:58] LABS: Hemoglobin 8.1 gm/dL (13.5-18.0); Mean Corpuscular Hemoglobin 29.6 pg (27-31); Mean Corpuscular Hgb Conc 34.8 g/dl (32-36); Mean Platelet Volume 10.8 fl (8-11.3); Neutrophil # 16.7 K/mm3 (1.3-6.0); Neutrophil % 87.8 % (42-75.0); Platelet Count 222 K/mm3 (150-450); Red Blood Count 2.74 M/mm3 (4.7-6.0); Red Cell Distribution Width 14.2 % (11.5-14.0)
[2018-12-31 07:16] LABS: Hematocrit 23.3 % (42.0-52.0)
[2018-12-31 07:21] LABS: Albumin * 1.8 gm/dl (3.4-5.0); Anion Gap 12.5 mmol/L (6.8-13.8); BUN/Creatinine Ratio 25.6 (9.0-21.6); Bilirubin, Total 0.4 mg/dL (0.0-1.1); Ca. Corrected For Albumin 9.5 mg/dL (8.4-10.2); Calcium * 8.1 mg/dL (7.9-10.9); Carbon Dioxide 24.2 mmol/L (24-32.6); Potassium 3.7 mmol/L (3.4-4.6); Total Protein 5.2 gm/dL (6.2-8.2)
[2018-12-31] MEDS ORDERED: AZITHROMYCIN 500 MG in DEXTROSE 5 % IN WATER 250 ML IV ONE ×2 (07:48)
--- NOTE | 2018-12-31 08:11 | PN ---
Subjective - Date and Time Seen Date: 12/31/18 Time: 07:59 Subjective Narrative: Jake had been having apneic spells early this morning. they would wake up him up and his apneic spells would stop.he is on CPAP of 5 at 25 % FIO@. The morning nurse says she has not noticed any apneic spells since her shift. Objective - Review of Systems Misc: All systems neg except as marked - ROS is unreliable due to his on and off confusion - Vitals Vitals: Last Vital Signs Temp 36.9 C 12/31/18 02:00 Pulse 84 12/31/18 07:21 Resp 20 12/31/18 07:21 BP 106/57 12/31/18 06:00 Pulse Ox 96 12/31/18 07:21 - Abnormal Lab Findings Abnormal Lab Findings: Abnormal Lab Results 12/30/18 12/30/18 12/30/18 Range/Units 06:32 06:32 10:30 WBC (4.0-10.5) K/mm3 RBC (4.7-6.0) M/mm3 Hgb (13.5-18.0) gm/dL Hct (42.0-52.0) % RDW (11.5-14.0) % Immature Gran % (Auto) (0.001-0.429) % Immature Gran # (Auto) (0.000-0.0310) K/mm3 Neutrophils % (42-75.0) % Lymphocytes % (20-51) % Neutrophils # (1.3-6.0) K/mm3 Lymphocytes # (1.5-3.5) k/mm3 pO2 (83.0-108.0) mmHg ABG O2 Sat (Measured) (94.0-98.0) % Sodium (132-142) mmol/L Chloride (97-106) mmol/L BUN/Creatinine Ratio (9.0-21.6) Random Glucose (70-110) mg/dL Iron 23 L (35-120) mcg/dL TIBC 137 L (260-445) mcg/dL Ferritin 390 H (26-388) ng/mL ALT (19-67) U/L Total Protein (6.2-8.2) gm/dL Albumin (3.4-5.0) gm/dl Folate 2.1 L (8.6-58.9) ng/mL Amorphous Sediment Moderate - 2+ H (NONE-FEW) 12/31/18 12/31/18 12/31/18 Range/Units 06:00 06:30 06:30 WBC 19.0 H (4.0-10.5) K/mm3 RBC 2.74 L (4.7-6.0) M/mm3 Hgb 8.1 L (13.5-18.0) gm/dL Hct 23.3 L* (42.0-52.0) % RDW 14.2 H (11.5-14.0) % Immature Gran % (Auto) 2.30 H (0.001-0.429) % Immature Gran # (Auto) 0.43 H (0.000-0.0310) K/mm3 Neutrophils % 87.8 H (42-75.0) % Lymphocytes % 3.3 L (20-51) % Neutrophils # 16.7 H (1.3-6.0) K/mm3 Lymphocytes # 0.63 L (1.5-3.5) k/mm3 pO2 67.6 L (83.0-108.0) mmHg ABG O2 Sat (Measured) 93.7 L (94.0-98.0) % Sodium 128 L (132-142) mmol/L Chloride 95 L (97-106) mmol/L BUN/Creatinine Ratio 25.6 H (9.0-21.6) Random Glucose 243 H (70-110) mg/dL Iron (35-120) mcg/dL TIBC (260-445) mcg/dL Ferritin (26-388) ng/mL ALT 17 L (19-67) U/L Total Protein 5.2 L (6.2-8.2) gm/dL Albumin 1.8 L (3.4-5.0) gm/dl Folate (8.6-58.9) ng/mL Amorphous Sediment (NONE-FEW) - Exam Constitutional: Present: Alert - Awake alert oriented x2, Cooperative, Elderly, Thin and frail ENT Exam: Present: hearing grossly normal Neck: Present: limited range of motion. Absent: lymphadenopathy (R), other Respiratory: Present: decreased breath sounds, crackles, No wheezing Cardiovascular/Chest: Present: regular rate, rhythm, no JVD, no murmur Abdomen: Present: Normal bowel sounds, soft, nontender, nondistended Extremity: Present: no calf tenderness, pedal edema Cauti Physician Documentation - Urinary Catheter Management Urethral (Olsen) Urethral Indwelling: Yes Date of Insertion: 12/30/18 Time of Insertion: 16:26 Assessment/Plan Plan Narrative: Jake is a 78-year-old male with multiple medical problems. He woke when I called his name and followed commands. He was admitted for MRSA UTI and weakness. He grew Streptococcus viridans in 1 bottle of his blood culture. He likely had tardive dyskinesia adverse effect from his Reglan. Yesterday he went into acute respiratory distress and has pneumonia on his chest x-ray. He is now on IV vancomycin, IV meropenem, and I have added azithromycin this morning. This is in coordination as well as with infectious disease of [facility] . His white blood cell count this morning is 19. His sodium is 128. 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 I will defer IV lasix today due to decreased urine output. His hemoglobin is 8.1. Anemia work up WNL. will do stool for occult blood. Likely due to anemia of chronic disease. Jake does have malnutrition but when asked if he wanted to have a feeding tube for nutrition , he emphatically raised his voice and said I do not want any feeding tube on me. He is now able to open his left eye usp compared to his right . We did an MRI yesterday for possible CVA but it was nonconclusive due to motion artifacts although it mentioned that there was no mass shift effect. He had been having apneic spells early this morning and would come out of it when they stimulate him or wake him up. His ABG showed 7.4/36.8/67.6/22.5/93.7%. Patient did not have any history of obstructive sleep apnea in the past. This could be central sleep apnea or underlying pulmonary disease ( nocturnal desaturation with mucus impaction) or if he indeed have a CVA. We will keep him on the CPAP at present settings but likely may increase EPAP to 8 and increase O2 to 50% in the evening when he gets those sleep apnea spells. Alternatively we could also put him on auto servo ventilation (AVS) with a back-up respiratory rate. We will defer from starting a feeding tube as he was definitely not confused at that time when he answered to me and to the SCU nurse. His is wanting him to be full code still as of yesterday.. - Problems/Diagnosis (1) AMS (altered mental status) Problem: Acute Qualifiers: Altered mental status type: delirium Qualified Code(s): R41.0 - Disorientation, unspecified (2) Acute encephalopathy Problem: Acute (3) Bacteremia due to Streptococcus Problem: Acute (4) Hyponatremia Problem: Acute (5) Tardive dyskinesia Problem: Suspected (6) Leukocytosis Problem: Acute Qualifiers: Leukocytosis type: leukemoid reaction Qualified Code(s): D72.823 - Leukemoid reaction (7) MRSA (methicillin resistant Staphylococcus aureus) infection Problem: Acute (8) Nausea & vomiting Problem: Acute Qualifiers: Vomiting Intractability: non-intractable (9) Diabetic gastroparesis Problem: Chronic (10) Dehydration Problem: Acute (11) Sepsis due to urinary tract infection Problem: Resolved (12) Indwelling urinary catheter present Problem: Acute (13) Urinary retention Problem: Acute (14) CAD (coronary artery disease) Problem: Chronic Qualifiers: Coronary Disease-Associated Artery/Lesion type: [place] artery [place] vs. transplanted heart: [place] heart Associated angina: without angina Qualified Code(s): I25.10 - Atherosclerotic heart disease of [place] coronary artery without angina pectoris (15) COPD (chronic obstructive pulmonary disease) Problem: Chronic Qualifiers: COPD type: unspecified COPD Qualified Code(s): J44.9 - Chronic obstructive pulmonary disease, unspecified (16) Diabetes mellitus Problem: Chronic Qualifiers: Diabetes mellitus type: type 2 Diabetes mellitus moth exterminator insulin use: with moth exterminator use Diabetes mellitus complication status: with neurologic complications Diabetes mellitus complication detail: with polyneuropathy Qualified Code(s): E11.42 - Type 2 diabetes mellitus with diabetic polyneuropathy (17) Hyperlipidemia Problem: Chronic Qualifiers: Hyperlipidemia type: pure hypercholesterolemia Qualified Code(s): E78.00 - Pure hypercholesterolemia, unspecified; E78.0 - Pure hypercholesterolemia (18) Hypertension Problem: Chronic Qualifiers: Hypertension type: essential hypertension Qualified Code(s): I10 - Essential (primary) hypertension (19) Low back pain Problem: Chronic Qualifiers: Chronicity: chronic Back pain laterality: unspecified Sciatica presence: unspecified whether sciatica present Qualified Code(s): M54.5 - Low back pain; G89.29 - Other chronic pain (20) Neck pain Problem: Chronic (21) Decubitus ulcer Problem: Chronic Qualifiers: Pressure injury location: sacral region Pressure injury stage: stage 2 Qualified Code(s): L89.152 - Pressure ulcer of sacral region, stage 2 (22) Malnutrition Problem: Acute Qualifiers: Malnutrition type: protein-calorie malnutrition Protein-calorie malnutrition severity: severe Qualified Code(s): E43 - Unspecified severe protein-calorie malnutrition
[2018-12-31] MEDS: INSULIN GLARGINE,HUM.REC.ANLOG 100 UNITS/ML VIAL SC SCH (08:53)
[2018-12-31] MEDS: VITE AC PO SCH ×2 (08:56→21:07)
[2018-12-31] MEDS: ASCORBATE SOD PO SCH ×2 (08:56→21:07)
[2018-12-31] MEDS: ARGININE PO SCH ×2 (08:56→21:07)
[2018-12-31] MEDS: DOCUSATE SODIUM 100 MG CAPSULE PO SCH (08:57)
[2018-12-31] MEDS: SACCHAROMYCES BOULARDII 250 MG CAPSULE PO SCH ×2 (08:57→21:33)
[2018-12-31] MEDS: ASPIRIN 325 MG TABLET.DR PO SCH (08:57)
[2018-12-31] MEDS: METOPROLOL TARTRATE 50 MG TABLET PO SCH (08:59)
[2018-12-31] MEDS: GABAPENTIN 400 MG CAPSULE PO SCH ×3 (09:00→17:31)
[2018-12-31] MEDS: FAMOTIDINE 20 MG TABLET PO SCH ×2 (09:00→21:09)
[2018-12-31] MEDS: NYSTATIN ORAL.SUSP PO SCH ×3 (09:00→18:29)
[2018-12-31] MEDS: amLODIPine BESYLATE 5 MG TABLET PO SCH (09:00)
[2018-12-31] MEDS: CLOPIDOGREL BISULFATE 75 MG TABLET PO SCH (09:01)
[2018-12-31] MEDS: ENOXAPARIN SODIUM 40 MG/0.4 ML SYRG SC SCH (09:01)
[2018-12-31] MEDS: SODIUM CHLORIDE 1 GM TABLET PO SCH ×3 (09:01→17:30)
[2018-12-31] MEDS: FLUTICASONE PROPION/SALMETEROL 14 PUFF DISK.W.DEV IH SCH ×2 (09:03→21:07)
[2018-12-31] MEDS: MEROPENEM 1 GM in NORMAL SALINE 100 ML IV SCH ×2 (09:04→21:10)
[2018-12-31] MEDS ORDERED: NORMAL SALINE 500 ML IV ONE ×3 (11:09→13:15)
[2018-12-31] MEDS ORDERED: NORMAL SALINE 1,000 ML IV ONE (12:35)
--- NOTE | 2018-12-31 13:30 | PN ---
[place]ley Note - Interim Date: 12/31/18 Time: 13:26 Narrative: 12/31/18 13:26 patient is awake and sitting talking to family and recognized me as his doctor. his BP though is on the low side and could be due to diuresis and due to his anemia. I have given a total of 1 L IV bolus and will give him 1 unit of PRBC. if he does not repsond. he will need to be started on IV vasopressor NE 1mcg/kg/mn and titrate to keep SBP at >/= 90 for possible septic shock. signed out to Dr. florence.
--- NOTE | 2018-12-31 14:44 | ECHO ---
This report is available in the EMR
[2018-12-31] MEDS: NORMAL SALINE IV PRN (14:54)
[2018-12-31] MEDS: VASOPRESSIN IV PRN (14:54)
[2018-12-31] MEDS: ROSUVASTATIN CALCIUM 10 MG TABLET PO SCH (21:08)
[2018-12-31] MEDS: FINASTERIDE 5 MG TABLET PO SCH (21:09)
[2018-12-31] MEDS: MONTELUKAST SODIUM 10 MG TABLET PO SCH (21:09)
[2018-12-31] MEDS: DOXAZOSIN MESYLATE 2 MG TABLET PO SCH (21:10)
[2019-01-01] MEDS: VANCOMYCIN HCL 1 GM in DEXTROSE 5 % IN WATER 250 ML IV SCH ×4 (04:51→17:14)
[2019-01-01] MEDS: ALBUTEROL SULFATE 2.5 MG/0.5 ML VIAL.NEB IH SCH ×4 (06:14→18:15)
[2019-01-01] MEDS: INSULIN GLARGINE,HUM.REC.ANLOG 100 UNITS/ML VIAL SC SCH (08:03)
[2019-01-01] MEDS: WATER IV SCH ×2 (08:39)
[2019-01-01] MEDS: DEXTROSE 5% IV SCH ×2 (08:39)
[2019-01-01] MEDS: AZITHROMYCIN IV SCH ×2 (08:39)
[2019-01-01] MEDS: MEROPENEM 1 GM in NORMAL SALINE 100 ML IV SCH ×2 (09:51→21:54)
[2019-01-01] MEDS: SACCHAROMYCES BOULARDII 250 MG CAPSULE PO SCH ×2 (10:01→21:09)
[2019-01-01] MEDS: ENOXAPARIN SODIUM 40 MG/0.4 ML SYRG SC SCH (10:01)
[2019-01-01] MEDS: SODIUM CHLORIDE 1 GM TABLET PO SCH ×4 (10:01→17:26)
[2019-01-01] MEDS: METOPROLOL TARTRATE 50 MG TABLET PO SCH ×2 (10:02→21:09)
[2019-01-01] MEDS: GABAPENTIN 400 MG CAPSULE PO SCH ×4 (10:02→17:26)
[2019-01-01] MEDS: CLOPIDOGREL BISULFATE 75 MG TABLET PO SCH (10:02)
[2019-01-01] MEDS: DOCUSATE SODIUM 100 MG CAPSULE PO SCH (10:02)
[2019-01-01] MEDS: ASPIRIN 325 MG TABLET.DR PO SCH (10:03)
[2019-01-01] MEDS: FOLIC ACID 1 MG TABLET PO SCH (10:03)
[2019-01-01] MEDS: amLODIPine BESYLATE 5 MG TABLET PO SCH (10:03)
[2019-01-01] MEDS: FAMOTIDINE 20 MG TABLET PO SCH ×2 (10:03→21:09)
[2019-01-01] MEDS: VITE AC PO SCH ×2 (10:04→21:09)
[2019-01-01] MEDS: NYSTATIN ORAL.SUSP PO SCH ×3 (10:04→17:43)
[2019-01-01] MEDS: ARGININE PO SCH ×2 (10:04→21:09)
[2019-01-01] MEDS: ASCORBATE SOD PO SCH ×2 (10:04→21:09)
[2019-01-01] MEDS: VASOPRESSIN IV PRN (10:10)
[2019-01-01] MEDS: NORMAL SALINE IV PRN (10:10)
[2019-01-01] MEDS: FLUTICASONE PROPION/SALMETEROL 14 PUFF DISK.W.DEV IH SCH ×2 (10:35→21:09)
[2019-01-01] MEDS ORDERED: DEXTROSE 5%-0.5 NORMAL SALINE 1,000 ML IV PRN (16:19)
[2019-01-01 16:37] LABS: Hematocrit 26.6 % (42.0-52.0); Hemoglobin 9.3 gm/dL (13.5-18.0); Mean Cell Volume 84.4 fl (78-100); Mean Corpuscular Hemoglobin 29.5 pg (27-31); Mean Platelet Volume 10.4 fl (8-11.3); Neutrophil % 88.5 % (42-75.0); Platelet Count 231 K/mm3 (150-450); Red Blood Count 3.15 M/mm3 (4.7-6.0); Red Cell Distribution Width 14.6 % (11.5-14.0)
[2019-01-01 16:49] LABS: Albumin * 1.7 gm/dl (3.4-5.0); Anion Gap 12.4 mmol/L (6.8-13.8); BUN/Creatinine Ratio 25.9 (9.0-21.6); Calcium * 8.1 mg/dL (7.9-10.9); Carbon Dioxide 23.2 mmol/L (24-32.6); Potassium 3.6 mmol/L (3.4-4.6); Total Protein 5.3 gm/dL (6.2-8.2)
[2019-01-01 16:50] LABS: Bilirubin, Total 0.3 mg/dL (0.0-1.1); Ca. Corrected For Albumin 9.6 mg/dL (8.4-10.2)
[2019-01-01] MEDS: ROSUVASTATIN CALCIUM 10 MG TABLET PO SCH (21:09)
[2019-01-01] MEDS: DOXAZOSIN MESYLATE 2 MG TABLET PO SCH (21:09)
[2019-01-01] MEDS: MONTELUKAST SODIUM 10 MG TABLET PO SCH (21:09)
[2019-01-01] MEDS: FINASTERIDE 5 MG TABLET PO SCH (21:09)
--- NOTE | 2019-01-01 23:59 | PN ---
Subjective - Date and Time Seen Date: 01/01/19 Time: 15:15 Subjective Narrative: Jake has been unresponsive most of the day. He was awake but confused early this morning. Blood pressure has been stable most of the day and vasopressin was titrated off and he maintained blood pressure. Late this evening after repositioning his oxygen desaturated and blood pressures dropped. He had rales. Fluids stopped. He had only about 100mls of fluid by mouth today. He did not eat food. Nursing discussed with family about code status and confirms that he is full code. Objective - Vitals Vitals: Last Vital Signs Temp 36.1 C 01/01/19 17:43 Pulse 82 01/01/19 22:00 Resp 14 01/01/19 22:00 BP 103/59 01/01/19 22:00 Pulse Ox 96 01/01/19 21:00 - Abnormal Lab Findings Abnormal Lab Findings: Abnormal Lab Results 01/01/19 01/01/19 Range/Units 16:30 16:30 WBC 18.0 H (4.0-10.5) K/mm3 RBC 3.15 L (4.7-6.0) M/mm3 Hgb 9.3 L (13.5-18.0) gm/dL Hct 26.6 L (42.0-52.0) % RDW 14.6 H (11.5-14.0) % Immature Gran % (Auto) 1.90 H (0.001-0.429) % Immature Gran # (Auto) 0.35 H (0.000-0.0310) K/mm3 Neutrophils % 88.5 H (42-75.0) % Lymphocytes % 4.0 L (20-51) % Neutrophils # 16.0 H (1.3-6.0) K/mm3 Lymphocytes # 0.72 L (1.5-3.5) k/mm3 Sodium 130 L (132-142) mmol/L Carbon Dioxide 23.2 L (24-32.6) mmol/L BUN 28 H (6-23) mg/dL BUN/Creatinine Ratio 25.9 H (9.0-21.6) Random Glucose 212 H (70-110) mg/dL ALT 16 L (19-67) U/L Total Protein 5.3 L (6.2-8.2) gm/dL Albumin 1.7 L (3.4-5.0) gm/dl - Exam Constitutional: Present: Obtunded. Absent: Alert, Oriented x3 Respiratory: Present: crackles Cardiovascular/Chest: Present: regular rate, rhythm, no murmur Abdomen: Present: Normal bowel sounds, soft, nontender, nondistended Skin Exam: Present: normal color, warm/dry, no cyanosis Cauti Physician Documentation - Urinary Catheter Management Urethral (Olsen) Urethral Indwelling: Yes Date of Insertion: 12/30/18 Time of Insertion: 16:26 Assessment/Plan Plan Narrative: Jake is unresponsive despite controlling blood pressure with vasopressin, which can be titrated off and on to keep MAP >65. Continue meropenem and vancomycin for broad spectrum coverage. Urine growing MRSA. Blood culture x 1 growing strep viridans, likely contaminate. Since Jake had not ate today and had minimal oral fluids I started D5 0.5NS at 70ml/hr. Later this evening he developed more rales and fluids were stopped. Held off on additional lasix as his respirations and oxygen were maintained with mask and his blood pressures were already low. Blood pressure is controlled, oxygen is controlled, and antibiotics have maximum coverage. Nothing additional can be done at this time. Had nursing call family and have them come in to see Jake as I suspect he may not live through the next twenty four hours and potentially sooner. is still wanting full code status. - Problems/Diagnosis (1) Unresponsive Problem: Acute (2) Septic shock due to methicillin resistant Staphylococcus aureus Problem: Acute
[2019-01-02] MEDS: VANCOMYCIN HCL 1 GM in DEXTROSE 5 % IN WATER 250 ML IV SCH ×4 (04:39→19:30)
[2019-01-02] MEDS: ALBUTEROL SULFATE 2.5 MG/0.5 ML VIAL.NEB IH SCH ×2 (06:07→13:29)
[2019-01-02] MEDS: INSULIN GLARGINE,HUM.REC.ANLOG 100 UNITS/ML VIAL SC SCH (08:18)
[2019-01-02] MEDS: DOCUSATE SODIUM 100 MG CAPSULE PO SCH (08:25)
[2019-01-02] MEDS: ASPIRIN 325 MG TABLET.DR PO SCH (08:25)
[2019-01-02] MEDS: ARGININE PO SCH ×2 (08:25→20:17)
[2019-01-02] MEDS: FLUTICASONE PROPION/SALMETEROL 14 PUFF DISK.W.DEV IH SCH ×2 (08:25→20:17)
[2019-01-02] MEDS: VITE AC PO SCH ×2 (08:25→20:17)
[2019-01-02] MEDS: ASCORBATE SOD PO SCH ×2 (08:25→20:17)
[2019-01-02] MEDS: SACCHAROMYCES BOULARDII 250 MG CAPSULE PO SCH ×2 (08:25→20:17)
[2019-01-02] MEDS: SODIUM CHLORIDE 1 GM TABLET PO SCH ×3 (08:26→18:33)
[2019-01-02] MEDS: CLOPIDOGREL BISULFATE 75 MG TABLET PO SCH (08:26)
[2019-01-02] MEDS: FOLIC ACID 1 MG TABLET PO SCH (08:26)
[2019-01-02] MEDS: GABAPENTIN 400 MG CAPSULE PO SCH ×3 (08:26→18:33)
[2019-01-02] MEDS: amLODIPine BESYLATE 5 MG TABLET PO SCH (08:26)
[2019-01-02] MEDS: METOPROLOL TARTRATE 50 MG TABLET PO SCH ×2 (08:26→20:17)
[2019-01-02] MEDS: FAMOTIDINE 20 MG TABLET PO SCH ×2 (08:26→20:17)
[2019-01-02] MEDS: AZITHROMYCIN IV SCH ×2 (08:56)
[2019-01-02] MEDS: WATER IV SCH ×2 (08:56)
[2019-01-02] MEDS: DEXTROSE 5% IV SCH ×2 (08:56)
[2019-01-02] MEDS: MEROPENEM 1 GM in NORMAL SALINE 100 ML IV SCH ×2 (10:12→21:41)
[2019-01-02] MEDS: ENOXAPARIN SODIUM 40 MG/0.4 ML SYRG SC SCH (10:12)
[2019-01-02] MEDS: NYSTATIN ORAL.SUSP PO SCH ×3 (10:21→18:33)
[2019-01-02] MEDS ORDERED: FUROSEMIDE 10 MG/ML VIAL IV ONE (10:56)
[2019-01-02] MEDS ORDERED: METHYLPREDNISOLONE SOD SUCC/PF 40 MG/ML VIAL IV ONE (10:57)
[2019-01-02 12:12] LABS: Hemoglobin 9.3 gm/dL (13.5-18.0); Mean Cell Volume 87.4 fl (78-100); Mean Corpuscular Hemoglobin 30.1 pg (27-31); Mean Corpuscular Hgb Conc 34.4 g/dl (32-36); Neutrophil # 18.7 K/mm3 (1.3-6.0); Neutrophil % 87.3 % (42-75.0); Platelet Count 257 K/mm3 (150-450); Red Blood Count 3.09 M/mm3 (4.7-6.0); White Blood Count 21.5 K/mm3 (4.0-10.5)
[2019-01-02 12:25] LABS: Albumin * 1.6 gm/dl (3.4-5.0); Anion Gap 13.8 mmol/L (6.8-13.8); BUN/Creatinine Ratio 19.3 (9.0-21.6); Bilirubin, Total 0.3 mg/dL (0.0-1.1); Ca. Corrected For Albumin 9.9 mg/dL (8.4-10.2); Calcium * 8.3 mg/dL (7.9-10.9); Carbon Dioxide 23.3 mmol/L (24-32.6); Potassium 4.1 mmol/L (3.4-4.6); Total Protein 5.3 gm/dL (6.2-8.2)
[2019-01-02] MEDS ORDERED: ONDANSETRON HCL/PF 2 MG/ML VIAL IV PRN (19:34)
[2019-01-02] MEDS ORDERED: POLYVINYL ALCOHOL 150 DROP BTL EACHEYE PRN (19:34)
[2019-01-02] MEDS: fentaNYL 25 MCG PATCH.TD72 TD SCH (19:42)
[2019-01-02] MEDS: MORPHINE SULFATE 2 MG/ML DISP.SYRIN IV PRN ×3 (20:07→23:18)
[2019-01-02] MEDS: LORazepam 2 MG/ML DISP.SYRIN IV PRN ×2 (20:08→22:16)
[2019-01-02] MEDS: ATROPINE SULFATE 50 DROP BTL SL PRN ×2 (20:09→22:16)
[2019-01-02] MEDS: DOXAZOSIN MESYLATE 2 MG TABLET PO SCH (20:17)
[2019-01-02] MEDS: FINASTERIDE 5 MG TABLET PO SCH (20:17)
[2019-01-02] MEDS: ROSUVASTATIN CALCIUM 10 MG TABLET PO SCH (20:17)
[2019-01-02] MEDS: MONTELUKAST SODIUM 10 MG TABLET PO SCH (20:17)
--- NOTE | 2019-01-02 23:54 | PN ---
Subjective - Date and Time Seen Date: 01/02/19 Time: 13:30 Subjective Narrative: Jake remained unresponsive today. Blood pressure has been stable and have been able to wean off pressors. Diuresed due to worsening pulmonary edema and respiratory distress. This happened after giving a small amount of IV fluids which is a poor indicator as he will not be able to receive needed IV fluids as it third spaces. Family have agreed to DNR status and have requested comfort cares. Objective - Vitals Vitals: Last Vital Signs Temp 36.2 C 01/02/19 13:45 Pulse 81 01/02/19 22:00 Resp 13 01/02/19 22:00 BP 130/74 01/02/19 22:00 Pulse Ox 100 01/02/19 22:00 - Abnormal Lab Findings Abnormal Lab Findings: Abnormal Lab Results 01/02/19 01/02/19 Range/Units 11:26 11:26 WBC 21.5 H (4.0-10.5) K/mm3 RBC 3.09 L (4.7-6.0) M/mm3 Hgb 9.3 L (13.5-18.0) gm/dL Hct 27.0 L (42.0-52.0) % RDW 15.0 H (11.5-14.0) % Immature Gran % (Auto) 1.60 H (0.001-0.429) % Immature Gran # (Auto) 0.35 H (0.000-0.0310) K/mm3 Neutrophils % 87.3 H (42-75.0) % Lymphocytes % 3.5 L (20-51) % Neutrophils # 18.7 H (1.3-6.0) K/mm3 Lymphocytes # 0.76 L (1.5-3.5) k/mm3 Monocytes # 1.2 H (0.0-1.0) k/mm3 Sodium 130 L (132-142) mmol/L Carbon Dioxide 23.3 L (24-32.6) mmol/L BUN 29 H (6-23) mg/dL Creatinine 1.50 H D (0.4-1.4) mg/dL Est GFR (Non-Af Amer) 58 L D (60-130) mL/min Random Glucose 167 H (70-110) mg/dL ALT 16 L (19-67) U/L Total Protein 5.3 L (6.2-8.2) gm/dL Albumin 1.6 L (3.4-5.0) gm/dl - Exam Constitutional: Present: Obtunded Respiratory: Present: crackles Cardiovascular/Chest: Present: tachycardia Abdomen: Present: hypoactive Skin Exam: Present: pallor Lymphatic: Present: no adenopathy Cauti Physician Documentation - Urinary Catheter Management Urethral (Olsen) Urethral Indwelling: Yes Date of Insertion: 12/30/18 Time of Insertion: 16:26 Assessment/Plan Plan Narrative: Condition is poor and I do not suspect Jake to recover. He has been made DNR and comfort cares per family wishes. I will continue antibiotics at this time but family is even considering stopping antibiotics. His blood pressure has stablized and he is off pressures but giving fluids will be difficulty as he third spaces even the smallest amount of IV fluids. He is obtunded and unable to take orals fluids and family does not want tube feeds. - Problems/Diagnosis (1) Unresponsive Problem: Acute (2) Septic shock due to methicillin resistant Staphylococcus aureus Problem: Acute
[2019-01-03] MEDS: MORPHINE SULFATE 2 MG/ML DISP.SYRIN IV PRN ×5 (01:37→08:06)
[2019-01-03] MEDS: LORazepam 2 MG/ML DISP.SYRIN IV PRN ×10 (01:37→20:55)
[2019-01-03] MEDS: ATROPINE SULFATE 50 DROP BTL SL PRN ×8 (01:45→18:33)
[2019-01-03] MEDS: VANCOMYCIN HCL 1 GM in DEXTROSE 5 % IN WATER 250 ML IV SCH ×2 (05:08)
[2019-01-03] MEDS: DOCUSATE SODIUM 100 MG CAPSULE PO SCH (08:01)
[2019-01-03] MEDS: FLUTICASONE PROPION/SALMETEROL 14 PUFF DISK.W.DEV IH SCH (08:01)
[2019-01-03] MEDS: ASCORBATE SOD PO SCH (08:01)
[2019-01-03] MEDS: VITE AC PO SCH (08:01)
[2019-01-03] MEDS: SACCHAROMYCES BOULARDII 250 MG CAPSULE PO SCH (08:01)
[2019-01-03] MEDS: INSULIN GLARGINE,HUM.REC.ANLOG 100 UNITS/ML VIAL SC SCH (08:01)
[2019-01-03] MEDS: ARGININE PO SCH (08:01)
[2019-01-03] MEDS: ASPIRIN 325 MG TABLET.DR PO SCH (08:01)
[2019-01-03] MEDS: GABAPENTIN 400 MG CAPSULE PO SCH (08:02)
[2019-01-03] MEDS: NYSTATIN ORAL.SUSP PO SCH (08:02)
[2019-01-03] MEDS: FOLIC ACID 1 MG TABLET PO SCH (08:02)
[2019-01-03] MEDS: METOPROLOL TARTRATE 50 MG TABLET PO SCH (08:02)
[2019-01-03] MEDS: amLODIPine BESYLATE 5 MG TABLET PO SCH (08:02)
[2019-01-03] MEDS: SODIUM CHLORIDE 1 GM TABLET PO SCH (08:03)
[2019-01-03] MEDS: CLOPIDOGREL BISULFATE 75 MG TABLET PO SCH (08:03)
[2019-01-03] MEDS: FAMOTIDINE 20 MG TABLET PO SCH (08:03)
[2019-01-03] MEDS ORDERED: AZITHROMYCIN IV SCH ×2 (09:00)
[2019-01-03] MEDS ORDERED: WATER IV SCH ×2 (09:00)
[2019-01-03] MEDS ORDERED: DEXTROSE 5% IV SCH ×2 (09:00)
[2019-01-03] MEDS ORDERED: ONDANSETRON HCL/PF 2 MG/ML VIAL IV PRN (09:13)
[2019-01-03] MEDS ORDERED: CODEINE PHOSPHATE/GUAIFENESIN 5 ML UDC PO PRN (09:13)
[2019-01-03] MEDS ORDERED: POLYVINYL ALCOHOL 150 DROP BTL EACHEYE PRN (09:13)
[2019-01-03] MEDS ORDERED: ACETAMINOPHEN 325 MG TABLET PO PRN (09:13)
[2019-01-03] MEDS ORDERED: ALBUTEROL SULFATE 2.5 MG/0.5 ML VIAL.NEB IH PRN (09:13)
[2019-01-03] MEDS ORDERED: BISACODYL 10 MG SUPP.RECT RC PRN (09:13)
[2019-01-03] MEDS ORDERED: LORazepam 2 MG/ML DISP.SYRIN ONE (09:14)
[2019-01-03] MEDS: MORPHINE SULFATE 4 MG/ML SYRG IV PRN ×18 (10:27→23:37)
--- NOTE | 2019-01-03 12:39 | PN ---
Subjective - Date and Time Seen Date: 01/03/19 Time: 12:23 Subjective Narrative: Jake remains unresponsive. He is a DNR now. They would want to make him comfort care only. The son who is in the room called his mother Alice and she has decided to make him comfort care only. She wants to stop all of his IV antibiotics and medications except for comfort care medications. Objective - Review of Systems Misc: All systems neg except as marked - unobtainable due to AMS - Vitals Vitals: Last Vital Signs Temp 36.0 C 01/03/19 06:19 Pulse 84 01/03/19 11:50 Resp 8 L 01/03/19 11:50 BP 116/53 01/03/19 11:50 Pulse Ox 100 01/03/19 11:50 - Abnormal Lab Findings Abnormal Lab Findings: Abnormal Lab Results 01/02/19 Range/Units 11:26 Sodium 130 L (132-142) mmol/L Carbon Dioxide 23.3 L (24-32.6) mmol/L BUN 29 H (6-23) mg/dL Creatinine 1.50 H D (0.4-1.4) mg/dL Est GFR (Non-Af Amer) 58 L D (60-130) mL/min Random Glucose 167 H (70-110) mg/dL ALT 16 L (19-67) U/L Total Protein 5.3 L (6.2-8.2) gm/dL Albumin 1.6 L (3.4-5.0) gm/dl - Exam Constitutional: Present: Obtunded, Elderly ENT Exam: Present: other - did not respond to name call Neck: Present: supple. Absent: lymphadenopathy (R), lymphadenopathy (L) Respiratory: Present: decreased breath sounds, crackles, rhonchi Cardiovascular/Chest: Present: regular rate, rhythm, no JVD, no murmur Abdomen: Present: Normal bowel sounds, soft, nontender, nondistended Extremity: Present: no calf tenderness, pedal edema Cauti Physician Documentation - Urinary Catheter Management Urethral ([place]) Urethral Indwelling: Yes Date of Insertion: 12/30/18 Time of Insertion: 16:26 Assessment/Plan Plan Narrative: Jake was admitted for MRSA UTI and developed a Streptococcus viridans bacteremia. He was started on IV antibiotics covering both pathogens per sensitivity. His follow-up urine culture and blood culture on the seventh day of IV antibiotics showed preliminary no growth. He however unfortunately developed pneumonia and he was put on IV meropenem and IV azithromycin and his IV vancomycin was continued. A follow-up chest x-ray showed worsening pulmonary edema, ARDS and multifocal pneumonia. Over the weekend the patient became hypotensive and was started on vasopressors. His blood pressure did go up but clinically did not improve. He was made a DNR and this morning was made a comfort care only. - Problems/Diagnosis (1) ARDS (adult respiratory distress syndrome) Problem: Acute (2) Pneumonia Problem: Acute Qualifiers: Pneumonia type: due to unspecified organism Laterality: bilateral Lung location: unspecified part of lung Qualified Code(s): J18.9 - Pneumonia, unspecified organism Narrative: RUL and LLL- multifocal (3) Septic shock Problem: Resolved Narrative: due to pneumonia (4) AMS (altered mental status) Problem: Acute Qualifiers: Altered mental status type: stupor Qualified Code(s): R40.1 - Stupor Narrative: due to toxic encephalopathy as well as hypoxic encephalopathy. (5) Acute encephalopathy Problem: Acute Narrative: Toxic/hypoxic encephalopathy (6) Bacteremia due to Streptococcus Problem: Resolved (7) Hyponatremia Problem: Resolved (8) Tardive dyskinesia Problem: Resolved (9) Leukocytosis Problem: Acute Qualifiers: Leukocytosis type: leukemoid reaction Qualified Code(s): D72.823 - Leukemoid reaction (10) MRSA (methicillin resistant Staphylococcus aureus) infection Problem: Resolved (11) Nausea & vomiting Problem: Resolved Qualifiers: Vomiting Intractability: non-intractable (12) Diabetic gastroparesis Problem: Chronic (13) Dehydration Problem: Acute (14) Sepsis due to urinary tract infection Problem: Resolved (15) Indwelling urinary catheter present Problem: Chronic (16) Urinary retention Problem: Chronic (17) CAD (coronary artery disease) Problem: Chronic Qualifiers: Coronary Disease-Associated Artery/Lesion type: [place] artery [place] vs. transplanted heart: [place] heart Associated angina: without angina Qualified Code(s): I25.10 - Atherosclerotic heart disease of [place] coronary artery without angina pectoris (18) COPD (chronic obstructive pulmonary disease) Problem: Chronic Qualifiers: COPD type: unspecified COPD Qualified Code(s): J44.9 - Chronic obstructive pulmonary disease, unspecified (19) Diabetes mellitus Problem: Chronic Qualifiers: Diabetes mellitus type: type 2 Diabetes mellitus superintendent terminal insulin use: with chcf use Diabetes mellitus complication status: with neurologic complications Diabetes mellitus complication detail: with polyneuropathy Qualified Code(s): E11.42 - Type 2 diabetes mellitus with diabetic polyneuropathy (20) Hyperlipidemia Problem: Chronic Qualifiers: Hyperlipidemia type: pure hypercholesterolemia Qualified Code(s): E78.00 - Pure hypercholesterolemia, unspecified; E78.0 - Pure hypercholesterolemia (21) Hypertension Problem: Chronic Qualifiers: Hypertension type: essential hypertension Qualified Code(s): I10 - Essential (primary) hypertension (22) Low back pain Problem: Chronic Qualifiers: Chronicity: chronic Back pain laterality: unspecified Sciatica presence: unspecified whether sciatica present Qualified Code(s): M54.5 - Low back pain; G89.29 - Other chronic pain (23) Neck pain Problem: Chronic (24) Decubitus ulcer Problem: Chronic Qualifiers: Pressure injury location: sacral region Pressure injury stage: stage 2 Qualified Code(s): L89.152 - Pressure ulcer of sacral region, stage 2 (25) Malnutrition Problem: Acute Qualifiers: Malnutrition type: protein-calorie malnutrition Protein-calorie malnutrition severity: severe Qualified Code(s): E43 - Unspecified severe protein-calorie malnutrition
[2019-01-04] MEDS: MORPHINE SULFATE 4 MG/ML SYRG IV PRN ×26 (00:50→21:32)
[2019-01-04] MEDS: ATROPINE SULFATE 50 DROP BTL SL PRN ×8 (00:51→20:52)
--- NOTE | 2019-01-04 12:40 | PN ---
Subjective - Date and Time Seen Date: 01/04/19 Time: 12:33 Subjective Narrative: patient is sedated. appears comfortable. ex-daughter in law in the room. Objective - Review of Systems Misc: All systems neg except as marked - unobtainable due to AMS - Vitals Vitals: Last Vital Signs Temp 36.0 C 01/03/19 06:19 Pulse 84 01/03/19 11:50 Resp 8 L 01/03/19 11:50 BP 116/53 01/03/19 11:50 Pulse Ox 100 01/03/19 11:50 - Exam Exam Narrative: Examination deferred. He is on comfort measures. Cauti Physician Documentation - Urinary Catheter Management Urethral ([place]) Urethral Indwelling: Yes Date of Insertion: 12/30/18 Time of Insertion: 16:26 Assessment/Plan Plan Narrative: We will continue with comfort care. - Problems/Diagnosis (1) ARDS (adult respiratory distress syndrome) Problem: Acute (2) Pneumonia Problem: Acute Qualifiers: Pneumonia type: due to unspecified organism Laterality: bilateral Lung location: unspecified part of lung Qualified Code(s): J18.9 - Pneumonia, unspecified organism (3) Septic shock Problem: Resolved (4) AMS (altered mental status) Problem: Acute Qualifiers: Altered mental status type: stupor Qualified Code(s): R40.1 - Stupor (5) Acute encephalopathy Problem: Acute (6) Bacteremia due to Streptococcus Problem: Resolved (7) Hyponatremia Problem: Resolved (8) Tardive dyskinesia Problem: Resolved (9) Leukocytosis Problem: Acute Qualifiers: Leukocytosis type: leukemoid reaction Qualified Code(s): D72.823 - Leukemoid reaction (10) MRSA (methicillin resistant Staphylococcus aureus) infection Problem: Resolved (11) Nausea & vomiting Problem: Resolved Qualifiers: Vomiting Intractability: non-intractable (12) Diabetic gastroparesis Problem: Chronic (13) Dehydration Problem: Acute (14) Sepsis due to urinary tract infection Problem: Resolved (15) Indwelling urinary catheter present Problem: Chronic (16) Urinary retention Problem: Chronic (17) CAD (coronary artery disease) Problem: Chronic Qualifiers: Coronary Disease-Associated Artery/Lesion type: [place] artery [place] vs. transplanted heart: [place] heart Associated angina: without angina Qualified Code(s): I25.10 - Atherosclerotic heart disease of [place] coronary artery without angina pectoris (18) COPD (chronic obstructive pulmonary disease) Problem: Chronic Qualifiers: COPD type: unspecified COPD Qualified Code(s): J44.9 - Chronic obstructive pulmonary disease, unspecified (19) Diabetes mellitus Problem: Chronic Qualifiers: Diabetes mellitus type: type 2 Diabetes mellitus obstetric assistant insulin use: with obstetric assistant use Diabetes mellitus complication status: with neurologic complications Diabetes mellitus complication detail: with polyneuropathy Qualified Code(s): E11.42 - Type 2 diabetes mellitus with diabetic polyneuropathy (20) Hyperlipidemia Problem: Chronic Qualifiers: Hyperlipidemia type: pure hypercholesterolemia Qualified Code(s): E78.00 - Pure hypercholesterolemia, unspecified; E78.0 - Pure hypercholesterolemia (21) Hypertension Problem: Chronic Qualifiers: Hypertension type: essential hypertension Qualified Code(s): I10 - Essential (primary) hypertension (22) Low back pain Problem: Chronic Qualifiers: Chronicity: chronic Back pain laterality: unspecified Sciatica presence: unspecified whether sciatica present Qualified Code(s): M54.5 - Low back pain; G89.29 - Other chronic pain (23) Neck pain Problem: Chronic (24) Decubitus ulcer Problem: Chronic Qualifiers: Pressure injury location: sacral region Pressure injury stage: stage 2 Qualified Code(s): L89.152 - Pressure ulcer of sacral region, stage 2 (25) Malnutrition Problem: Acute Qualifiers: Malnutrition type: protein-calorie malnutrition Protein-calorie malnutrition severity: severe Qualified Code(s): E43 - Unspecified severe protein-calorie malnutrition
[2019-01-04] MEDS: LORazepam 2 MG/ML DISP.SYRIN IV PRN ×4 (14:37→20:47)
[2019-01-05 01:41] VITALS: BP 0/0
--- NOTE | 2019-01-05 08:24 | DS ---
Discharge Summary - Provider Primary Care Provider: Steven Martinez Admitting Clinician: Sania Reid Attending Physician on Admission: Sania Reid Pronouncing Clinician: Steven Martienz - Date and Time Date of : 01/04/19 Time of : 21:58 - Diagnosis/Cause of (1) ARDS (adult respiratory distress syndrome) Problems: Acute (2) Pneumonia Problems: Acute (3) Septic shock Problems: Resolved (4) AMS (altered mental status) Problems: Acute (5) Acute encephalopathy Problems: Acute (6) Bacteremia due to Streptococcus Problems: Resolved (7) Hyponatremia Problems: Resolved (8) Tardive dyskinesia Problems: Resolved (9) Leukocytosis Problems: Acute (10) MRSA (methicillin resistant Staphylococcus aureus) infection Problems: Resolved (11) Nausea & vomiting Problems: Resolved (12) Diabetic gastroparesis Problems: Chronic (13) Dehydration Problems: Resolved (14) Sepsis due to urinary tract infection Problems: Resolved (15) Indwelling urinary catheter present Problems: Chronic (16) Urinary retention Problems: Chronic (17) CAD (coronary artery disease) Problems: Chronic (18) COPD (chronic obstructive pulmonary disease) Problems: Chronic (19) Diabetes mellitus Problems: Chronic (20) Hyperlipidemia Problems: Chronic (21) Hypertension Problems: Chronic (22) Low back pain Problems: Chronic (23) Neck pain Problems: Chronic (24) Decubitus ulcer Problems: Chronic (25) Malnutrition Problems: Acute (26) Angioedema Problems: Resolved - Summary Details (narrative): Jake Lawler is a 78-year-old male with multiple medical problems who was admitted on 12/22/2018 for MRSA UTI , N/V, weakness and dehydration. He was started on IV linezolid but his WBC did not go down and so it was discontinued . IV bactrim was started . He grew Streptococcus viridans in 1 bottle of his blood culture. He was also started on IV Rocephin for this. 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 He likely had tardive dyskinesia adverse effect from his Reglan as he was pouting his lips and making chewing movements of his jaw. Reglan was stopped. On the 7th hospital day, he had swelling of his lips and tongue and angioedema was suspected. He got IV solumedrel and IV benadryl. His WBC count went up again. His IV bactrim was discontinued with the suspicion that this could also be a delayed reaction to it. IV Vancomycin was started. BC/UC were reordered. His preliminary result showed NG. Unfortunately on his 9th hospital day, he went into acute respiratory distress and had pneumonia on his chest x-ray. His IV vancomycin was continued, IV meropenem replaced IV rocephin, and I have added azithromycin this morning per recommendation of infectious disease of [facility] , Dr. María Hendrix. . His white blood cell count this morning is 19. His hyponatremia improved with fluid restriction, lasix and Na tablets. He remained confused on and off due to acute encephalopathy- toxic/metabolic and lately hypoxic. His head CTS showed no acute intracranial process. We did an MRI for possible CVA but it was nonconclusive due to motion artifacts although it mentioned that there was no mass shift effect. His hemoglobin went down to 8.1 and anemia work up showed low folate. Likely due to anemia of chronic disease and folate deficiency from malnutrition. Jake did have malnutrition but when asked if he wanted to have a feeding tube for nutrition , he emphatically raised his voice and said I do not want any feeding tube on me. He started having apneic spells and would come out of it when they stimulate him or wake him up. His ABG showed 7.4/36.8/67.6/22.5/93.7%. Patient did not have any history of obstructive sleep apnea in the past. This could have been central sleep apnea or underlying pulmonary disease ( nocturnal desaturation wit h mucus impaction) or if he indeed have a CVA. We kept him on the CPAP at same settings but likely may increase EPAP to 8. The patient started having low blood pressures that did not respond to IVF boluses and 1 unit of PRBC . He was started on IV vasopressors for septic shock. The follow up CXR showed interval worsening of pulmonary congestion, ARDS, and multifocal pneumonia. The family decided to make him DNR and then later comfort care only. The patient on 01/04/2019 at 2158. Procedures Performed: none - Additional Data Confirmation of as documented by pronouncing clinician: no pulse, no respirations, no heart sounds, pupils fixed and dilated Family: at bedside Practitioner(Attending/PCP) notified: Yes Attending physician: Steven Martinez Was code activated: No Autopsy requested: No Land Leases And Rentals Manager notified: No [employer] notified: Yes Advance Directives: Yes Hospice patient: No
== END 2019-01-04 21:58 | disposition expired | DRG 871 ==
LOC: ER 11:40 → MS 11:40 → SCU 12-28 16:05 → MS 01-03 15:06
PROVIDERS: ADMIT Family Medicine; ATTEND Internal Medicine
DX: G24.01 Drug induced subacute dyskinesia; T45.0X5A Adverse effect of antiallergic and antiemetic drugs, initial encounter; B95.62 Methicillin resistant Staphylococcus aureus infection as the cause of diseases classified elsewhere; D64.9 Anemia, unspecified; E86.0 Dehydration; R65.21 Severe sepsis with septic shock; A40.8 Other streptococcal sepsis; E11.43 Type 2 diabetes mellitus with diabetic autonomic (poly)neuropathy; L89.152 Pressure ulcer of sacral region, stage 2; M54.2 Cervicalgia; J44.9 Chronic obstructive pulmonary disease, unspecified; I25.10 Atherosclerotic heart disease of native coronary artery without angina pectoris; Y73.8 Miscellaneous gastroenterology and urology devices associated with adverse incidents, not elsewhere classified; G93.41 Metabolic encephalopathy; J18.9 Pneumonia, unspecified organism; R33.8 Other retention of urine; E88.09 Other disorders of plasma-protein metabolism, not elsewhere classified; R41.82 Altered mental status, unspecified; N40.1 Benign prostatic hyperplasia with lower urinary tract symptoms; J80 Acute respiratory distress syndrome; E22.2 Syndrome of inappropriate secretion of antidiuretic hormone; N39.0 Urinary tract infection, site not specified; K31.84 Gastroparesis; T83.511A Infection and inflammatory reaction due to indwelling urethral catheter, initial encounter; E43 Unspecified severe protein-calorie malnutrition
CPT/HCPCS: 36415; 36600; 70450; 70551; 71010; 71045; 74019; 74020; 80048; 80053; 80202; 81001; 82150; 82272; 82607; 82728; 82746; 82803; 83519; 83540; 83550; 83605; 83690; 83880; 83930; 85007; 85025; 86140; 86850; 87040; 87077; 87081; 87086; 87186; 87449; 93306; 93971; 94640; 94660; 94664; 96361; 96365; 96366; 96367; 99285; G0378; J2020; P9016